=== PATIENT | male | born 1950 | race Caucasian/White ===

== ENCOUNTER 2019-04-19 20:36 | Emergency (ER) | payer MEDICARE, OTHER ==
[~2019-04-19] VITALS: Ht 177 cm; Wt 88.8 kg
[2019-04-19] MEDS ORDERED: ONDANSETRON 4 MG/2 ML (SDV) Z0FRAN IVP STA (20:57)
[2019-04-19] MEDS ORDERED: NS IV 1000 ML 1,000 ML IV STA ×2 (20:57→22:00)
[2019-04-19 21:12] LABS: BASOPHILS # (AUTO) 0.1 10^3/uL (0.0-0.1); BASOPHILS % (AUTO) 0 % (0-10); EOSINOPHILS # (AUTO) 0.1 10^3/uL (0.0-0.3); EOSINOPHILS % (AUTO) 1 % (0-10); HEMATOCRIT 45 % (40-54); HEMOGLOBIN 14.3 G/DL (13.3-17.7); LYMPHOCYTES # (AUTO) 0.6 X 10^3 (1.0-4.0); LYMPHOCYTES % (AUTO) 5 % (12-44); MEAN CORPUSCULAR HEMOGLOBIN 28 PG (25-34); MEAN CORPUSCULAR HGB CONC 32 G/DL (32-36); MEAN CORPUSCULAR VOLUME 89 FL (80-99); MEAN PLATELET VOLUME 10.2 FL (7.4-10.4); MONOCYTES # (AUTO) 0.8 X 10^3 (0.0-1.0); MONOCYTES % (AUTO) 6 % (0-12); NEUTROPHILS # (AUTO) 10.9 X 10^3 (1.8-7.8); NEUTROPHILS % (AUTO) 87 % (42-75); PLATELET COUNT 320 10^3/uL (130-400); RED CELL DISTRIBUTION WIDTH 13.7 % (10.0-14.5); WHITE BLOOD COUNT 12.5 10^3/uL (4.3-11.0)
--- NOTE | 2019-04-19 21:15 | ED GI ---
General Stated Complaint: VOMITTING Source of Information: Patient History of Present Illness Date Seen by Provider: Apr 19, 2019 Time Seen by Provider: 20:44 Initial Comments 69-year-old male presenting with complaints of nausea, vomiting, diarrhea since around 3 AM. He states that he did have some Israeli food prior to this happening. He has only been drinking fluids today. He denies having any effect and then some ice cream. He has not taken any of his insulin until just prior to coming to the emergency department. He reports that he has felt bad all day. His sugars when he finally did check it just before coming to the emergency department was spreading over 600. He took 30 units of NovoLog insulin when his sugar read over 600 and that was part of what prompted him to come to the emergency department. He also has high blood pressure but states that they recently took him off of his lisinopril that he had been on for a long time. He used to have an insulin pump but it was recalled and he is now just doing insulin shots of NovoLog and he occasionally uses Levemir but he states that it occasionally makes his sugar dropped too low so he does not use it all the time. He follows with Christy Olivares from [facility]. Allergies and Home Medications Allergies Coded Allergies: No Known Drug Allergies (Unverified , 04/19/19) Home Medications Ondansetron 4 Mg Tab.rapdis, 4 MG PO Q6H PRN for NAUSEA/VOMITING Prescribed by: PEEWEE VILLAVICENCIO on 04/19/19 [id number] Patient Home Medication List Home Medication List Reviewed: Yes Review of Systems Review of Systems Constitutional: chills; No fever; malaise EENTM: No Blurred Vision, No Throat Pain Respiratory: Denies Cough Cardiovascular: Denies Chest Pain Gastrointestinal: Abdominal Pain (diffuse cramping), Diarrhea, Nausea, Vomiting Genitourinary: Frequency; Denies Pain Musculoskeletal: no symptoms reported Skin: No rash Psychiatric/Neurological: Anxiety Endocrine: Increased Thrist, Increased Urine Hematologic/Lymphatic: No Symptoms Reported Past Bmtjzli-Slwnxq-Bvkmfk Hx Past Med/Social Hx: Reviewed Nursing Past Med/Soc Hx Patient Social History Recent Foreign Travel: No Contact w/Someone Who Travel: No Past Medical History Cardiac: Yes Hypertension Endocrine: Yes Diabetes, Insulin dep Physical Exam Vital Signs Vital Signs - First Documented 04/19/19 20:45 Temp 36.8 Pulse 102 Resp 18 B/P (MAP) 152/64 (93) Pulse Ox 99 O2 Delivery Room Air Capillary Refill : Height/Weight/BMI Height: '" Weight: lbs. oz. kg; BMI Method: General Appearance: WD/WN, no apparent distress HEENT: PERRL/EOMI; No pharyngeal erythema; other (dry mucus membranes) Neck: non-tender, full range of motion, supple Respiratory: chest non-tender, lungs clear, normal breath sounds Cardiovascular: normal peripheral pulses, regular rate, rhythm Gastrointestinal: normal bowel sounds, non tender, soft, no pulsatile mass Rectal: deferred Extremities: normal range of motion, non-tender, no pedal edema, no calf tenderness, normal capillary refill Back: no CVA tenderness Neurologic/Psychiatric: alert, normal mood/affect, oriented x 3 Skin: normal color, warm/dry Progress/Results/Core Measures Results/Orders Lab Results Laboratory Tests Test 04/19/19 21:00 04/19/19 21:10 04/19/19 22:10 04/19/19 22:41 Range/Units White Blood Count 12.5 H 4.3-11.0 10^3/uL Red Blood Count 5.03 4.35-5.85 10^6/uL Hemoglobin 14.3 13.3-17.7 G/DL Hematocrit 45 40-54 % Mean Corpuscular Volume 89 80-99 FL Mean Corpuscular Hemoglobin 28 25-34 PG Mean Corpuscular Hemoglobin Concent 32 32-36 G/DL Red Cell Distribution Width 13.7 10.0-14.5 % Platelet Count 320 130-400 10^3/uL Mean Platelet Volume 10.2 7.4-10.4 FL Neutrophils (%) (Auto) 87 H 42-75 % Lymphocytes (%) (Auto) 5 L 12-44 % Monocytes (%) (Auto) 6 0-12 % Eosinophils (%) (Auto) 1 0-10 % Basophils (%) (Auto) 0 0-10 % Neutrophils # (Auto) 10.9 H 1.8-7.8 X 10^3 Lymphocytes # (Auto) 0.6 L 1.0-4.0 X 10^3 Monocytes # (Auto) 0.8 0.0-1.0 X 10^3 Eosinophils # (Auto) 0.1 0.0-0.3 10^3/uL Basophils # (Auto) 0.1 0.0-0.1 10^3/uL Neutrophils % (Manual) 78 % Lymphocytes % (Manual) 2 % Monocytes % (Manual) 6 % Eosinophils % (Manual) 1 % Basophils % (Manual) 0 % Band Neutrophils 13 % Blood Morphology Comment NORMAL Sodium Level 133 L 135-145 MMOL/L Potassium Level 4.2 3.6-5.0 MMOL/L Chloride Level 94 L 98-107 MMOL/L Carbon Dioxide Level 13 L 21-32 MMOL/L Anion Gap 26 H 5-14 MMOL/L Blood Urea Nitrogen 27 H 7-18 MG/DL Creatinine 1.25 0.60-1.30 MG/DL Estimat Glomerular Filtration Rate 57 BUN/Creatinine Ratio 22 Glucose Level 511 *H 70-105 MG/DL Calcium Level 8.5 8.5-10.1 MG/DL Corrected Calcium 8.5 8.5-10.1 MG/DL Total Bilirubin 0.4 0.1-1.0 MG/DL Aspartate Amino Transf (AST/SGOT) 21 5-34 U/L Alanine Aminotransferase (ALT/SGPT) 16 0-55 U/L Alkaline Phosphatase 98 40-136 U/L Total Protein 7.2 6.4-8.2 GM/DL Albumin 4.0 3.2-4.5 GM/DL Lipase 10 8-78 U/L Serum Alcohol < 10 <10 MG/DL Glucometer 378 H 250 H 70-110 MG/DL Capillary Blood pH 7.31 L 7.37-7.43 My Orders Orders - PEEWEE VILLAVICENCIO MD Comprehensive Metabolic Panel (04/19/19 20:57) Lipase (04/19/19 20:57) Ua Culture If Indicated (04/19/19 20:57) Ed Iv/Invasive Line Start (04/19/19 20:57) Cbc With Automated Diff (04/19/19 20:57) Accucheck Stat ONCE (04/19/19 20:57) Alcohol (04/19/19 20:57) Drug Screen Stat (Urine) (04/19/19 20:57) Ns Iv 1000 Ml (Sodium Chloride 0.9%) (04/19/19 20:57) Ondansetron Injection (Zofran Injectio (04/19/19 20:57) Manual Differential (04/19/19 21:00) Ns Iv 1000 Ml (Sodium Chloride 0.9%) (04/19/19 22:00) Capillary Blood Ph (04/19/19 22:05) Accucheck Stat ONCE (04/19/19 22:41) Rx-Ondansetron Po (Rx-Zofran Po) (04/19/19 22:45) Rx-Ondansetron Po (Rx-Zofran Po) (04/19/19 23:03) Vital Signs/I&O 04/19/19 04/19/19 20:45 22:52 Temp 36.8 Pulse 102 82 Resp 18 16 B/P (MAP) 152/64 (93) 146/54 Pulse Ox 99 99 O2 Delivery Room Air Room Air Progress Progress Note #1: Progress Note Check labs and urine. Give IVF for hydration and Zofran for nausea. 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 Progress Note #2: Time: 21:44 Progress Note Labs show elevated glucose with elevated WBC and left shift. He also has low CO2 and high Anion Gap to indicate possible DKA. His blood pressure and heart rate have improved with treatment in the ED. He still has not been able to provide a urine specimen so will repeat NS bolus. Order ABG to check his pH for possible DKA. Progress Note #3: Time: 22:05 Progress Note Unable to obtain arterial blood gas so will send for a venous pH. Patient is also stating that he understands the importance of treating the acidosis but that he cannot be admitted tonight. 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 He has had no vomiting here in the ED had no diarrhea. He states that he is feeling better after treatment in the ED and that if he gets medication for nausea that he will push fluids and use his insulin to treat his elevated sugars at home. He refuses admission to the hospital and understands the implications that he could worsen and cause organ damage or even if he does not follow with the treatment plan for the ketoacidosis. Will aggressively hydrate him here in the ED and treat him with nausea medicine for home. Give him strict return precautions and have him sign out AGAINST MEDICAL ADVICE. Progress Note #4: Progress Note pH of 7.31 so slightly acidotic but he was tolerating oral fluids and states he feels much better. He has glucose now down to 240 on accucheck after 2 L of NS by IV bolus. He still refuses admit and states he understands the risk of worsening condition and even potential if he does not stay for admission for his DKA, and continues to desire to leave AGAINST MEDICAL ADVICE. Departure Impression Primary Impression: Left against medical advice Additional Impressions: Diabetic ketoacidosis associated with type 1 diabetes mellitus Qualified Codes: E10.10 - Type 1 diabetes mellitus with ketoacidosis without coma Nausea vomiting and diarrhea Dehydration Disposition: AGAINST MEDICAL ADVICE Condition: Against Medical Advice Departure-Patient Inst. Decision time for Depature: 22:43 Referrals: YULI NAGEL APRN (PCP) Primary Care Physician Patient Instructions: Diabetic Ketoacidosis (DC), Leaving Against Medical Advice, Nausea and Vomiting, Adult (DC) Add. Discharge Instructions: Follow up with Raquel Olivares in clinic for your diabetes and elevated sugars. Use the nausea medicine to help keep your stomach settled so that you can stay hydrated. If your symptoms keep worsening then you should return or go to [facility] for repeat evaluation and possible admission to the hospital if your tests continue to show ketoacidosis and dehydration. Scripts Ondansetron (Ondansetron Odt) 4 Mg Tab.rapdis 4 MG PO Q6H PRN for NAUSEA/VOMITING for 3 Days, #12 TAB 0 Refills Prov: PEEWEE VILLAVICENCIO MD 04/19/19 PEEWEE VILLAVICENCIO MD Apr 19, 2019 21:14 POS
[2019-04-19 21:26] LABS: BAND NEUTROPHILS 13 %; BASOPHILS % (MANUAL) 0 %; EOSINOPHILS % (MANUAL) 1 %; LYMPHOCYTES % (MANUAL) 2 %; MONOCYTES % (MANUAL) 6 %; NEUTROPHILS % (MANUAL) 78 %; RBC MORPH NORMAL
[2019-04-19 21:27] LABS: BUN/CREATININE RATIO 22; CARBON DIOXIDE 13 MMOL/L (21-32); CHLORIDE 94 MMOL/L (98-107); CREATININE SERUM 1.25 MG/DL (0.60-1.30); GFR ESTIMATED 57; POTASSIUM 4.2 MMOL/L (3.6-5.0); SODIUM 133 MMOL/L (135-145)
[2019-04-19 21:28] LABS: ALANINE AMINOTRANSFERASE 16 U/L (0-55); ALKALINE PHOSPHATASE 98 U/L (40-136); BILIRUBIN,TOTAL 0.4 MG/DL (0.1-1.0); CALCIUM 8.5 MG/DL (8.5-10.1); GLUCOSE 511 MG/DL (70-105); LIPASE 10 U/L (8-78); TOTAL PROTEIN 7.2 GM/DL (6.4-8.2)
[2019-04-19] MEDS ORDERED: ONDA4TAB11 PO (22:19)
[2019-04-19] MEDS ORDERED: RX-ONDANSETRON 4 MG ODT (ZOFRAN) PPK #4 PO PRN (22:45)
[2019-04-19 22:52] VITALS: BP 146/54
[2019-04-19] MEDS ORDERED: RX-ONDANSETRON 4 MG ODT (ZOFRAN) PPK #4 PO STA (23:03)
--- OUTSIDE RECORDS SUMMARY | 2019-05-16 03:01 | XMS REPORT ---
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 901053896 Problem Gastroesophageal reflux disease without esophagitis K21.9 Active 569006626 Problem Acquired hypothyroidism E03.9 Active 500456031 Problem Long-term use of high-risk medication Z79.899 Active 463460466 Problem Essential hypertension I10 Active 46156059 ALLERGIES No Information ENCOUNTERS Encounter Location Date Diagnosis [facility] [address] [facility] [id number] [address] [place] [phone] Apr, Essential hypertension I10 [facility] [address] [facility] [id number] [address] [place] [phone] Mar, [facility] [address] [facility] [id number] [address] [place] [phone] Mar, Type 1 diabetes mellitus wit hout complication E10.9 [facility] [address] [facility] [id number] [address] [place] [phone] Mar, Gastroesophageal reflux dise ase without esophagitis K21.9 [facility] [address] [facility] [id number] [address] [place] [phone] Feb, [facility] [address] [facility] [id number] [address] [place] [phone] Feb, Type 1 diabetes mellitus wit h hyperglycemia E10.65 ; Essential hypertension I10 ; Long-term use of high-risk medication Z79.899 ; Vasculogenic erectile dysfunction, unspecified vasculogenic erectile dysfunction type N52.9 and Encounter for immunization Z23 [facility] [address] [facility] [id number] [address] [place] [phone] Feb, Type 2 diabetes mellitus wit h hyperglycemia, unspecified whether fdc insulin use E11.65 [facility] [address] [facility] [id number] [address] [place] [phone] Feb, [facility] [address] [id number] [address] [place] [phone] Feb, Type 1 diabetes mellitus wit hout complication E10.9 [facility] [address] [facility] [id number] [address] [place] [phone] Feb, [facility] [address] [facility] [id number] [address] [place] [phone] Dec, [facility] [address] [facility] [id number] [address] [place] [phone] Dec, Type 2 diabetes mellitus wit h hyperglycemia, unspecified whether fdc insulin use E11.65 ; Essential hypertension I10 ; Long-term use of high-risk medication Z79.899 and Vasculogenic erectile dysfunction, unspecified vasculogenic erectile dysfunction type N52.9 [facility] [address] [facility] [id number] [address] [place] [phone] Dec, [facility] [address] [facility] [id number] [address] [place] [phone] Dec, [facility] [address] [facility] [id number] [address] [place] [phone] Oct, Type 1 diabetes mellitus wit hout complication E10.9 [facility] [address] [facility] [id number] [address] [place] [phone] Oct, Gastroesophageal reflux dise ase without esophagitis K21.9 [facility] [address] [facility] [id number] [address] [place] [phone] September, Type 1 diabetes mellitus wit hout complication E10.9 [facility] [address] [facility] [id number] [address] [place] [phone] September, [facility] [address] [id number] [address] [place] [phone] Aug, [facility] [address] [facility] [id number] [address] [place] [phone] Aug, Type 1 diabetes mellitus wit hout complication E10.9 [facility] [address] [id number] [address] [place] [id number] Jul, Type 1 diabetes mellitus wit hout complication E10.9 [facility] [address] [id number] [address] [place] [phone] Jul, [facility] [address] [id number] [address] [place] [phone] Jul, [facility] [address] [id number] [address] [place] [phone] Jun, [facility] [address] [id number] [address] [place] [phone] Jun, [facility] [address] [id number] [address] [place] [phone] Jun, Type 1 diabetes mellitus wit hout complication E10.9 [facility] [address] [id number] [address] [place] [phone] May, Type 1 diabetes mellitus wit hout complication E10.9 [facility] [address] [id number] [address] [place] [phone] May, [facility] [address] [facility] [id number] [address] [place] [phone] May, Type 1 diabetes mellitus wit hout complication E10.9 [facility] [address] [facility] [id number] [address] [place] [phone] May, Type 1 diabetes mellitus wit hout complication E10.9 ; Acquired hypothyroidism E03.9 ; Gastroesophageal reflux disease without esophagitis K21.9 ; Essential hypertension I10 ; Long-term use of high-risk medication Z79.899 ; Screening for colon cancer Z12.11 and Frequency of urination R35.0 [facility] [address] [id number] [address] [place] [phone] Apr, [facility] [address] [id number] [address] [place] [phone] 14 Mar, 2017 [facility] [address] [id number] [address] [place] [phone] Mar, [facility] [address] [id number] [address] [place] [phone] Dec, [facility] [address] [id number] [address] [place] [phone] Dec, [facility] [address] [id number] [address] [place] [phone] Dec, Type 1 diabetes mellitus wit hout complication E10.9 [facility] [address] [id number] [address] [place] [phone] Nov, [facility] [address] [id number] [address] [place] [phone] Nov, [facility] [address] [id number] [address] [place] [phone] Nov, Type 1 diabetes mellitus wit hout complication E10.9 [facility] [address] [id number] [address] [place] [phone] Nov, [facility] [address] [id number] [address] [place] [phone] Nov, Type 1 diabetes mellitus wit hout complication E10.9 [facility] [address] [id number] [address] [place] [phone] Nov, [facility] [address] [id number] [address] [place] [phone] Nov, [facility] [address] [id number] [address] [place] [phone] Nov, [facility] [address] [facility] [id number] [address] [place] [phone] Nov, Type 1 diabetes mellitus wit hout complication E10.9 ; Acquired hypothyroidism E03.9 ; Gastroesophageal reflux disease without esophagitis K21.9 ; Screening cholesterol level Z13.220 ; Essential hypertension I10 and Khadra onychomycosis B37.2 [facility] [address] [id number] [address] [phone] Oct, Type 1 diabetes mellitus wit hout complication E10.9 [facility] [address] [id number] [address] [place] [phone] Oct, [facility] [address] [facility] [id number] [address] [place] [phone] Oct, [facility] [address] [facility] [id number] [address] [place] [phone] September, [facility] [address] [facility] [id number] [address] [place] [phone] Aug, [facility] [address] [facility] [id number] [address] [place] [phone] Jul, [facility] [address] [facility] [id number] [address] [place] [phone] Jul, [facility] [address] [facility] [id number] [address] [place] [phone] Jul, [facility] [address] [facility] [id number] [address] [place] [phone] Jul, [facility] [address] [facility] [id number] [address] [place] [phone] Jul, Type 1 diabetes mellitus wit hout complication E10.9 ; Acquired hypothyroidism E03.9 ; Gastroesophageal reflux disease without esophagitis K21.9 ; Khadra onychomycosis B37.2 and Essential hypertension I10 [facility] [address] [facility] [id number] [address] [place] [phone] Jul, [facility] [address] [place] [id number] Jul, [facility] [address] [facility] [id number] [address] [place] [phone] Jun, [place] [address] [facility] [id number] [address] [place] [phone] Jun, Acquired hypothyroidism E03. 9 ; Gastroesophageal reflux disease without esophagitis K21.9 and Type 1 diabetes mellitus without complication E10.9 [place] [address] [facility] [id number] [address] [phone] Jun, [place] [address] [facility] [id number] [address] [place] [phone] Jun, [place] [address] [facility] [id number] [address] [place] [phone] Jun, Type 1 diabetes mellitus wit hout complication E10.9 ; Acquired hypothyroidism E03.9 ; Gastroesophageal reflux disease without esophagitis K21.9 and Screening cholesterol level Z13.220 [place] [address] [facility] [id number] [address] [phone] 13 Jun, 2016 IMMUNIZATIONS No Known Immunizations SOCIAL HISTORY Never Assessed REASON FOR VISIT Medication refill request PLAN OF CARE VITAL SIGNS MEDICATIONS Medication Instructions Dosage Frequency Start Date End Date Duration S tatus Levothyroxine Sodium 200 MCG Orally daily 1 capsule 24h 30 Active Lisinopril 20 mg Orally Once a day 1 tablet 24h 30 d ays Active RESULTS No Results PROCEDURES No Known procedures INSTRUCTIONS MEDICATIONS ADMINISTERED No Known Medications MEDICAL (GENERAL) HISTORY Type Description Date Medical History Hypothyroidism Medical History type I diabetes Medical History GERD Medical History spinal menningitis Medical History HTN - BP goes down if off the Lisnopril Surgical History appendectomy 2016 Surgical History hernia repair at age 14 Hospitalization History Surgery(s) only Hospitalization History spinal menningitis
--- OUTSIDE RECORDS SUMMARY | 2019-05-16 03:01 | XMS REPORT ---
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 Active 695455384 Problem Gastroesophageal reflux disease without esophagitis K21.9 Active 083697601 Problem Acquired hypothyroidism E03.9 Active 341591611 Problem Long-term use of high-risk medication Z79.899 Active 546983336 Problem Essential hypertension I10 Active [id number] ALLERGIES No Information ENCOUNTERS Encounter Location Date Diagnosis [facility] [address] [facility] [id number] [address] [place] [phone] Mar, [facility] [address] [facility] [id number] [address] [place] [phone] Mar, Type 1 diabetes mellitus wit hout complication E10.9 [facility] [address] [facility] [id number] [address] [place] [phone] Mar, Gastroesophageal reflux dise ase without esophagitis K21.9 [facility] [address] [facility] [id number] [address] [place] [phone] Feb, [facility] [address] [facility] [id number] [address] [place] [phone] Feb, Type 1 diabetes mellitus wit h hyperglycemia E10.65 ; Essential hypertension I10 ; Long-term use of high-risk medication Z79.899 ; Vasculogenic erectile dysfunction, unspecified vasculogenic erectile dysfunction type N52.9 and Encounter for immunization Z23 [facility] [address] [id number] [address] [place] [phone] Feb, Type 2 diabetes mellitus wit h hyperglycemia, unspecified whether long term care administrator insulin use E11.65 [facility] [address] [id number] [address] [place] [phone] Feb, [facility] [address] [facility] [id number] [address] [place] [phone] Feb, Type 1 diabetes mellitus wit hout complication E10.9 [facility] [address] [id number] [address] [place] [phone] Feb, [facility] [address] [id number] [address] [place] [phone] Dec, [facility] [address] [facility] [id number] [address] [place] [phone] Dec, Type 2 diabetes mellitus wit h hyperglycemia, unspecified whether long term care administrator insulin use E11.65 ; Essential hypertension I10 ; Long-term use of high-risk medication Z79.899 and Vasculogenic erectile dysfunction, unspecified vasculogenic erectile dysfunction type N52.9 [facility] [address] [id number] [address] [place] [phone] Dec, [facility] [address] [facility] [id number] [address] [place] [phone] Dec, [facility] [address] [facility] [id number] [address] [place] [id number] Oct, Type 1 diabetes mellitus wit hout complication E10.9 [facility] [address] [id number] [address] [place] [phone] Oct, Gastroesophageal reflux dise ase without esophagitis K21.9 [facility] [address] [id number] [address] [place] [id number] September, Type 1 diabetes mellitus wit hout complication E10.9 [facility] [address] [facility] [id number] [address] [place] [phone] September, [facility] [address] [facility] [id number] [address] [place] [phone] Aug, [facility] [address] [facility] [id number] [address] [place] [phone] Aug, Type 1 diabetes mellitus wit hout complication E10.9 [facility] [address] [facility] [id number] [address] [place] [phone] Jul, Type 1 diabetes mellitus wit hout complication E10.9 [facility] [address] [facility] [id number] [address] [place] [phone] Jul, [facility] [address] [facility] [id number] [address] [place] [phone] Jul, [facility] [address] [facility] [id number] [address] [place] [phone] Jun, [facility] [address] [facility] [id number] [address] [place] [phone] Jun, [facility] [address] [facility] [id number] [address] [place] [phone] Jun, Type 1 diabetes mellitus wit hout complication E10.9 [facility] [address] [facility] [id number] [address] [place] [phone] May, Type 1 diabetes mellitus wit hout complication E10.9 [facility] [address] [facility] [id number] [address] [place] [phone] May, [facility] [address] [facility] [id number] [address] [place] [phone] May, Type 1 diabetes mellitus wit hout complication E10.9 [facility] [address] [facility] [id number] [address] [place] [phone] May, Type 1 diabetes mellitus wit hout complication E10.9 ; Acquired hypothyroidism E03.9 ; Gastroesophageal reflux disease without esophagitis K21.9 ; Essential hypertension I10 ; Long-term use of high-risk medication Z79.899 ; Screening for colon cancer Z12.11 and Frequency of urination R35.0 [facility] [address] [id number] [address] [place] [address], [place] [address] Apr, [facility] [address] [id number] [address] [place] [address], [place] [address] Mar, [facility] [address] [id number] [address] [place] [address], [place] [address] Mar, [facility] [address] [id number] [address] [place] [address], [place] [address] Dec, [facility] [address] [id number] [address] [place] [address], [place] [address] Dec, [facility] [address] [id number] [address] [place] [address], [place] [address] Dec, Type 1 diabetes mellitus wit hout complication E10.9 [facility] [address] [id number] [address] [place] [address], [place] [address] Nov, [facility] [address] [id number] [address] [place] [address], [place] [address] Nov, [facility] [address] [id number] [address] [place] [address], [place] [address] Nov, Type 1 diabetes mellitus wit hout complication E10.9 [facility] [address] [id number] [address] [place] [address], [place] [address] Nov, [facility] [address] [id number] [address] [place] [address], [place] [address] Nov, Type 1 diabetes mellitus wit hout complication E10.9 [facility] [address] [id number] [address] [place] [address], [place] [address] Nov, [facility] [address] [id number] [address] [place] [address], [place] [address] Nov, [facility] [address] [id number] [address] [place] [phone] Nov, [facility] [address] [id number] [address] [place] [phone] Nov, Type 1 diabetes mellitus wit hout complication E10.9 ; Acquired hypothyroidism E03.9 ; Gastroesophageal reflux disease without esophagitis K21.9 ; Screening cholesterol level Z13.220 ; Essential hypertension I10 and Khadra onychomycosis B37.2 [facility] [address] [id number] [address] [place] [id number] Oct, Type 1 diabetes mellitus wit hout complication E10.9 [facility] [address] [id number] [address] [place] [phone] Oct, [facility] [address] [id number] [address] [place] [phone] Oct, [facility] [address] [id number] [address] [place] [phone] September, [facility] [address] [id number] [address] [place] [id number] Aug, [facility] [address] [id number] [address] [place] [phone] Jul, [facility] [address] [id number] [address] [place] [phone] Jul, [facility] [address] [facility] [id number] [address] [place] [phone] Jul, [facility] [address] [id number] [address] [place] [phone] Jul, [facility] [address] [facility] [id number] [address] [place] [phone] Jul, Type 1 diabetes mellitus wit hout complication E10.9 ; Acquired hypothyroidism E03.9 ; Gastroesophageal reflux disease without esophagitis K21.9 ; Khadra onychomycosis B37.2 and Essential hypertension I10 [facility] [address] [facility] [id number] [address] [place] [phone] 14 Jul, 2016 [facility] [address] [place] [id number] Jul, [facility] [address] [facility] [id number] [address] [place] [phone] Jun, [facility] [address] [place] [id number] [address] [place] [phone] Jun, Acquired hypothyroidism E03. 9 ; Gastroesophageal reflux disease without esophagitis K21.9 and Type 1 diabetes mellitus without complication E10.9 [place] [id number] [place] [phone] Jun, [place] [id number] [place] [phone] Jun, [place] [address] [place] [id number] [address] [place] [address] Jun, Type 1 diabetes mellitus wit hout complication E10.9 ; Acquired hypothyroidism E03.9 ; Gastroesophageal reflux disease without esophagitis K21.9 and Screening cholesterol level Z13.220 [place] [address] [facility] [id number] [address] [place] [phone] Jun, IMMUNIZATIONS No Known Immunizations SOCIAL HISTORY Never Assessed REASON FOR VISIT Eye Exam PLAN OF CARE VITAL SIGNS MEDICATIONS Unknown Medications RESULTS No Results PROCEDURES No Known procedures [...]
--- OUTSIDE RECORDS SUMMARY | 2019-05-16 03:02 | XMS REPORT ---
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 Active 351619301 Problem Type 2 diabetes mellitus wit h hyperglycemia, unspecified whether adjunct faculty for medical terminology insulin use E11.65 Active 30681987333 9109 Problem Acquired hypothyroidism E03.9 Active 962703254 Problem Gastroesophageal reflux disease without esophagitis K21.9 Active 755275195 Problem Long-term use of high-risk medication Z79.899 Active 513169591 Problem Essential hypertension I10 Active 47332110 ALLERGIES No Information ENCOUNTERS Encounter Location Date Diagnosis [facility] [address] [facility] [id number] [address] [place] [phone] Mar, [facility] [address] [facility] [id number] [address] [place] [phone] 24 Feb, 2018 [facility] [address] [facility] [id number] [address] [place] [phone] Feb, Type 2 diabetes mellitus wit h hyperglycemia, unspecified whether adjunct faculty for medical terminology insulin use E11.65 [facility] [address] [id number] [address] [place] [phone] Feb, [facility] [address] [facility] [id number] [address] [place] [phone] Feb, Type 1 diabetes mellitus wit hout complication E10.9 [facility] [address] [facility] [id number] [address] [place] [phone] Feb, [facility] [address] [facility] [id number] [address] [place] [phone] Dec, [facility] [address] [facility] [id number] [address] [place] [phone] Dec, Type 2 diabetes mellitus wit h hyperglycemia, unspecified whether adjunct faculty for medical terminology insulin use E11.65 ; Essential hypertension I10 ; Long-term use of high-risk medication Z79.899 and Vasculogenic erectile dysfunction, unspecified vasculogenic erectile dysfunction type N52.9 [facility] [address] [facility] [id number] [address] [place] [phone] Dec, [facility] [address] [facility] [id number] [address] [place] [phone] Dec, [facility] [address] [facility] [id number] [address] [place] [phone] Oct, Type 1 diabetes mellitus wit hout complication E10.9 [facility] [address] [facility] [id number] [address] [place] [phone] Oct, Gastroesophageal reflux dise ase without esophagitis K21.9 [facility] [address] [facility] [id number] [address] [place] [phone] September, Type 1 diabetes mellitus wit hout complication E10.9 [facility] [address] [facility] [id number] [address] [place] [phone] September, [facility] [address] [facility] [id number] [address] [place] [phone] Aug, [facility] [address] [facility] [id number] [address] [place] [phone] Aug, Type 1 diabetes mellitus wit hout complication E10.9 [facility] [address] [facility] [id number] [address] [place] [phone] Jul, Type 1 diabetes mellitus wit hout complication E10.9 [facility] [address] [facility] [id number] [address] [place] [phone] Jul, [facility] [address] [facility] [id number] [address] [place] [phone] Jul, [facility] [address] [facility] [id number] [address] [place] [phone] Jun, [facility] [address] [facility] [id number] [address] [place] [phone] Jun, [facility] [address] [facility] [id number] [address] [place] [phone] Jun, Type 1 diabetes mellitus wit hout complication E10.9 [facility] [address] [facility] [id number] [address] [place] [phone] May, Type 1 diabetes mellitus wit hout complication E10.9 [facility] [address] [facility] [id number] [address] [place] [phone] May, [facility] [address] [facility] [id number] [address] [place] [address] May, Type 1 diabetes mellitus wit hout complication E10.9 [facility] [address] [facility] [id number] [address] [place] [phone] May, Type 1 diabetes mellitus wit hout complication E10.9 ; Acquired hypothyroidism E03.9 ; Gastroesophageal reflux disease without esophagitis K21.9 ; Essential hypertension I10 ; Long-term use of high-risk medication Z79.899 ; Screening for colon cancer Z12.11 and Frequency of urination R35.0 [facility] [address] [facility] [id number] [address] [place] [phone] Apr, [facility] [address] [facility] [id number] [address] [place] [address] Mar, [facility] [address] [facility] [id number] [address] [place] [phone] Mar, [facility] [address] [facility] [id number] [address] [place] [phone] Dec, [facility] [address] [facility] [id number] [address] [place] [phone] Dec, [facility] [address] [id number] [address] [place] [address] Dec, Type 1 diabetes mellitus wit hout complication E10.9 [facility] [address] [id number] [address] [place] [phone] Nov, [facility] [address] [id number] [address] [place] [address] Nov, [facility] [address] [id number] [address] [place] [phone] Nov, Type 1 diabetes mellitus wit hout complication E10.9 [facility] [address] [id number] [address] [place] [address] Nov, [facility] [address] [id number] [address] [place] [phone] Nov, Type 1 diabetes mellitus wit hout complication E10.9 [facility] [address] [id number] [address] [place] [phone] Nov, [facility] [address] [id number] [address] [place] [phone] Nov, [facility] [address] [id number] [address] [place] [address] Nov, [facility] [address] [id number] [address] [place] [address] Nov, Type 1 diabetes mellitus wit hout complication E10.9 ; Acquired hypothyroidism E03.9 ; Gastroesophageal reflux disease without esophagitis K21.9 ; Screening cholesterol level Z13.220 ; Essential hypertension I10 and Khadra onychomycosis B37.2 [facility] [address] [id number] [address] [place] [phone] Oct, Type 1 diabetes mellitus wit hout complication E10.9 [facility] [address] [id number] [address] [place] [phone] Oct, [facility] [address] [id number] [address] [place] [phone] Oct, [facility] [address] [facility] [id number] [address] [place] [phone] September, [facility] [address] [id number] [address] [place] [phone] Aug, [facility] [address] [facility] [id number] [address] [place] [phone] Jul, [facility] [address] [id number] [address] [place] [phone] Jul, [facility] [address] [id number] [address] [place] [phone] Jul, [facility] [address] [facility] [id number] [address] [place] [phone] Jul, [facility] [address] [facility] [id number] [address] [place] [phone] Jul, Type 1 diabetes mellitus wit hout complication E10.9 ; Acquired hypothyroidism E03.9 ; Gastroesophageal reflux disease without esophagitis K21.9 ; Khadra onychomycosis B37.2 and Essential hypertension I10 [facility] [address] [facility] [id number] [address] [place] [phone] Jul, [facility] [address] [place] [id number] Jul, [facility] [address] [facility] [id number] [address] [place] [phone] Jun, [facility] [address] [facility] [id number] [address] [place] [phone] Jun, Acquired hypothyroidism E03. 9 ; Gastroesophageal reflux disease without esophagitis K21.9 and Type 1 diabetes mellitus without complication E10.9 [facility] [address] [facility] [id number] [address] [place] [phone] Jun, [facility] [address] [facility] [id number] [address] [place] [phone] Jun, [facility] [address] [facility] [id number] [address] [place] [phone] 15 Jun, 2016 Type 1 diabetes mellitus wit hout complication E10.9 ; Acquired hypothyroidism E03.9 ; Gastroesophageal reflux disease without esophagitis K21.9 and Screening cholesterol level Z13.220 [facility] [address] [facility] [id number] [address] [place] [phone] 13 Jun, 2016 IMMUNIZATIONS No Known Immunizations SOCIAL HISTORY Never Assessed REASON FOR VISIT Requests return call PLAN OF CARE VITAL SIGNS MEDICATIONS Unknown [...]
--- OUTSIDE RECORDS SUMMARY | 2019-05-16 03:02 | XMS REPORT ---
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 996583863 Problem Gastroesophageal reflux disease without esophagitis K21.9 Active 122700676 Problem Acquired hypothyroidism E03.9 Active 121650172 Problem Long-term use of high-risk medication Z79.899 Active 030001582 Problem Essential hypertension I10 Active 63599118 ALLERGIES Substance Reaction Event Type Date Status Codeine Phosphate Unknown Drug Allergy Feb, Active ENCOUNTERS Encounter Location Date Diagnosis [place] [id number] [facility] [id number] [address] [place] [phone] Mar, [place] [address] [place] [id number] [address] [place] [phone] Feb, [place] [address] [place] [id number] [address] [place] [phone] Feb, Type 1 diabetes mellitus wit h hyperglycemia E10.65 ; Essential hypertension I10 ; Long-term use of high-risk medication Z79.899 ; Vasculogenic erectile dysfunction, unspecified vasculogenic erectile dysfunction type N52.9 and Encounter for immunization Z23 [facility] [address] [facility] [id number] [address] [place] [phone] Feb, Type 2 diabetes mellitus wit h hyperglycemia, unspecified whether snf insulin use E11.65 [place] [id number] [place] [id number] [address] [place] [phone] Feb, [facility] [address] [facility] [id number] [address] [place] [phone] Feb, Type 1 diabetes mellitus wit hout complication E10.9 [facility] [address] [facility] [id number] [address] [place] [phone] Feb, [facility] [address] [facility] [id number] [address] [place] [phone] Dec, [facility] [address] [facility] [id number] [address] [place] [phone] Dec, Type 2 diabetes mellitus wit h hyperglycemia, unspecified whether snf insulin use E11.65 ; Essential hypertension I10 ; Long-term use of high-risk medication Z79.899 and Vasculogenic erectile dysfunction, unspecified vasculogenic erectile dysfunction type N52.9 [facility] [address] [facility] [id number] [address] [place] [phone] Dec, [facility] [address] [facility] [id number] [address] [place] [phone] Dec, [facility] [address] [facility] [id number] [address] [place] [phone] Oct, Type 1 diabetes mellitus wit hout complication E10.9 [facility] [address] [facility] [id number] [address] [place] [phone] Oct, Gastroesophageal reflux dise ase without esophagitis K21.9 [facility] [address] [facility] [id number] [address] [place] [phone] September, Type 1 diabetes mellitus wit hout complication E10.9 [facility] [address] [facility] [id number] [address] [place] [phone] September, [facility] [address] [facility] [id number] [address] [place] [phone] Aug, [facility] [address] [facility] [id number] [address] [place] [phone] Aug, Type 1 diabetes mellitus wit hout complication E10.9 [facility] [address] [facility] [id number] [address] [place] [phone] Jul, Type 1 diabetes mellitus wit hout complication E10.9 [facility] [address] [facility] [id number] [address] [place] [phone] Jul, [facility] [address] [facility] [id number] [address] [place] [phone] Jul, [facility] [address] [facility] [id number] [address] [place] [phone] Jun, [facility] [address] [facility] [id number] [address] [place] [phone] Jun, [facility] [address] [place] [id number] [address] [place] [phone] Jun, Type 1 diabetes mellitus wit hout complication E10.9 [facility] [address] [place] [id number] [address] [place] [phone] May, Type 1 diabetes mellitus wit hout complication E10.9 [facility] [address] [place] [id number] [address] [place] [phone] May, [facility] [address] [place] [id number] [address] [place] [phone] May, Type 1 diabetes mellitus wit hout complication E10.9 [facility] [id number] [place] [phone] May, Type 1 diabetes mellitus wit hout complication E10.9 ; Acquired hypothyroidism E03.9 ; Gastroesophageal reflux disease without esophagitis K21.9 ; Essential hypertension I10 ; Long-term use of high-risk medication Z79.899 ; Screening for colon cancer Z12.11 and Frequency of urination R35.0 [facility] [address] [facility] [id number] [address] [place] [phone] Apr, [facility] [address] [place] [id number] [address] [place] [phone] Mar, [facility] [id number] [place] [phone] Mar, [facility] [address] [id number] [address] [place] [phone] Dec, [facility] [address] [id number] [address] [place] [phone] Dec, [facility] [address] [id number] [address] [place] [phone] Dec, Type 1 diabetes mellitus wit hout complication E10.9 [facility] [address] [id number] [address] [place] [phone] Nov, [facility] [address] [id number] [address] [place] [phone] Nov, [facility] [address] [id number] [address] [place] [phone] Nov, Type 1 diabetes mellitus wit hout complication E10.9 [facility] [address] [id number] [address] [place] [phone] Nov, [facility] [address] [id number] [address] [place] [phone] Nov, Type 1 diabetes mellitus wit hout complication E10.9 [facility] [address] [id number] [address] [place] [phone] Nov, [facility] [address] [id number] [address] [place] [phone] Nov, [facility] [address] [id number] [address] [place] [phone] Nov, [facility] [address] [facility] [id number] [address] [place] [phone] Nov, Type 1 diabetes mellitus wit hout complication E10.9 ; Acquired hypothyroidism E03.9 ; Gastroesophageal reflux disease without esophagitis K21.9 ; Screening cholesterol level Z13.220 ; Essential hypertension I10 and Khadra onychomycosis B37.2 [facility] [address] [id number] [address] [place] [phone] 28 Oct, 2016 Type 1 diabetes mellitus wit hout complication E10.9 [facility] [address] [id number] [address] [place] [phone] Oct, [facility] [address] [id number] [address] [place] [phone] 05 Oct, 2016 [facility] [address] [id number] [address] [place] [phone] September, [facility] [address] [id number] [address] [place] [phone] Aug, [facility] [address] [id number] [address] [place] [phone] Jul, [facility] [address] [facility] [id number] [address] [place] [phone] Jul, [facility] [address] [id number] [address] [place] [phone] Jul, [facility] [address] [id number] [address] [place] [phone] Jul, [facility] [address] [facility] [id number] [address] [place] [phone] Jul, Type 1 diabetes mellitus wit hout complication E10.9 ; Acquired hypothyroidism E03.9 ; Gastroesophageal reflux disease without esophagitis K21.9 ; Khadra onychomycosis B37.2 and Essential hypertension I10 [facility] [address] [id number] [address] [place] [phone] 14 Jul, [facility] [address] [id number] Jul, [facility] [address] [id number] [address] [place] [phone] Jun, [facility] [address] [facility] [id number] [address] [place] [phone] Jun, Acquired hypothyroidism E03. 9 ; Gastroesophageal reflux disease without esophagitis K21.9 and Type 1 diabetes mellitus without complication E10.9 [facility] [address] [facility] [id number] [address] [place] [phone] Jun, [facility] [address] [facility] [id number] [address] [place] [phone] Jun, [facility] [address] [facility] [id number] [address] [place] [phone] Jun, Type 1 diabetes mellitus wit hout complication E10.9 ; Acquired hypothyroidism E03.9 ; Gastroesophageal reflux disease without esophagitis K21.9 and Screening cholesterol level Z13.220 [place] [address] [facility] [id number] [address] [place] [phone] Jun, IMMUNIZATIONS Vaccine Route Administration Date Status FLULAVAL QUAD 0.5ML (6 MO & UP) 2018 IM Intramuscular Mar 08 Administered SOCIAL HISTORY Never Assessed REASON FOR VISIT Diabetes fu -- wu fowler PLAN OF CARE Activity Details Follow Up 3 Months with Ashia dominguez: Pending Test TSH w/ FREE T4 Pending Test CMP Pending Test CBC Pending Test VITAMIN B12 VITAL SIGNS Height 70 in 2018-03-08 Weight 204.0 lbs 2018-03-08 Temperature 98.0 degrees Fahrenheit 2018-03-08 Heart Rate 78 bpm 2018-03-08 Respiratory Rate 18 2018-03-08 BMI 29.27 kg/m2 2018-03-08 Blood pressure systolic 140 mmHg 2018-03-08 Blood pressure diastolic 80 mmHg 2018-03-08 MEDICATIONS Medication Instructions Dosage Frequency Start Date End Date Duration S tatus ReliOn Prime Test - In Vitro 3 times a day as directed 8h 11 Nov, 2 017 Active Dex4 Glucose Go-Pouch 15 GM/33GM Orally as needed for hypoglycem ia as directed May, Active Protonix 40 mg Orally Once a day 1 capsule 24h 30 Active Viagra 100 mg Orally Once a day 1 tablet as needed 24h Feb, Mar, 30 day(s) Active ReliOn Blood Glucose Test - In Vitro 3 times a day as directed 8h 33 Active Tresiba FlexTouch 200 UNIT/ML Subcutaneous Once a day 10 units at bedtime 24h Feb, Active Levothyroxine Sodium 200 MCG TAKE ONE (1 ) TABLET BY MOUTH ONCE DAILY IN THE MORNING ON AN EMPTY STOMACH 30 Active Insulin Syringe-Needle U-100 31G X 1/4 subcutaneously 4 times a day as directed 6h Oct, Active NovoLog 100 UNIT/ML Subcutaneous before breakfast and lunch 8 units 60 days Active Lisinopril 20 MG Orally Once a day 1 tablet 24h 30 d ays Active Tresiba FlexTouch 200 UNIT/ML Subcutaneous at bedtime Inject 14 uni ts May, Not-Taking Insulin Syringe 31G X 5/16 subcutaneously 4 times a day DX: E11. 65 as directed Dec, Active RESULTS Name Result Date Reference Range A1C (IN HOUSE) A1C IN HOUSE 9.7 4.3 - 5.6 % Previous A1c 11.4 Lot [id number] Exp date 07/2019 PROCEDURES Procedure Date Ordered Result Body Site GLYCATED HEMOGLOBIN TEST Mar 08, 2018 FLULAVAL QUAD 0.5ML (6 MO & UP) 2017Mar 08, 2018 [facility] VISIT ESTABLISHED PATIENT Mar 08, 2018 SINGLE IMMUNIZATION ADMIN Mar 08, 2018 ADMN FLU VAC NO FEE SCHED SAME DAY Mar 08, 2018 LAB NOT BILLED BY [facility] Mar 08, 2018 VENIPUNCT, ROUTINE* Mar 08, 2018 INSTRUCTIONS MEDICATIONS ADMINISTERED No Known Medications MEDICAL [...]
--- OUTSIDE RECORDS SUMMARY | 2019-05-16 03:02 | XMS REPORT ---
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 Active 845517742 Problem Type 2 diabetes mellitus wit h hyperglycemia, unspecified whether nuclear equipment sales engineer insulin use E11.65 Active 71012367112 9109 Problem Acquired hypothyroidism E03.9 Active 489311246 Problem Gastroesophageal reflux disease without esophagitis K21.9 Active 663150494 Problem Long-term use of high-risk medication Z79.899 Active 211129082 Problem Essential hypertension I10 Active 99810033 ALLERGIES No Information ENCOUNTERS Encounter Location Date Diagnosis [place] [id number] [facility] [id number] [address] [place] [phone] Jan, [facility] [address] [facility] [id number] [address] [place] [phone] Dec, [facility] [address] [facility] [id number] [address] [place] [phone] Dec, Type 2 diabetes mellitus wit h hyperglycemia, unspecified whether nuclear equipment sales engineer insulin use E11.65 ; Essential hypertension I10 ; Long-term use of high-risk medication Z79.899 and Vasculogenic erectile dysfunction, unspecified vasculogenic erectile dysfunction type N52.9 [facility] [address] [facility] [id number] [address] [place] [phone] Dec, [facility] [address] [facility] [id number] [address] [place] [phone] Dec, [facility] [address] [facility] [id number] [address] [place] [phone] Oct, Type 1 diabetes mellitus wit hout complication E10.9 [facility] [address] [id number] [address] [place] [address] Oct, Gastroesophageal reflux dise ase without esophagitis K21.9 [facility] [address] [id number] [address] [place] [phone] September, Type 1 diabetes mellitus wit hout complication E10.9 [facility] [address] [id number] [address] [place] [phone] September, [facility] [address] [id number] [address] [place] [phone] Aug, [facility] [address] [id number] [address] [place] [phone] Aug, Type 1 diabetes mellitus wit hout complication E10.9 [facility] [address] [id number] [address] [place] [phone] Jul, Type 1 diabetes mellitus wit hout complication E10.9 [facility] [address] [id number] [address] [place] [phone] Jul, [facility] [address] [id number] [address] [place] [phone] Jul, [facility] [address] [id number] [address] [place] [phone] Jun, [facility] [address] [id number] [address] [place] [phone] Jun, [facility] [address] [id number] [address] [place] [address] Jun, Type 1 diabetes mellitus wit hout complication E10.9 [facility] [address] [id number] [address] [place] [phone] May, Type 1 diabetes mellitus wit hout complication E10.9 [facility] [address] [id number] [address] [place] [phone] May, [facility] [address] [id number] [address] [place] [phone] May, Type 1 diabetes mellitus wit hout complication E10.9 [facility] [address] [id number] [address] [place] [phone] May, Type 1 diabetes mellitus wit hout complication E10.9 ; Acquired hypothyroidism E03.9 ; Gastroesophageal reflux disease without esophagitis K21.9 ; Essential hypertension I10 ; Long-term use of high-risk medication Z79.899 ; Screening for colon cancer Z12.11 and Frequency of urination R35.0 [facility] [address] [id number] [address] [place] [phone] Apr, [facility] [address] [id number] [address] [place] [phone] Mar, [facility] [address] [facility] [id number] [address] [place] [phone] Mar, [facility] [address] [id number] [address] [place] [phone] Dec, [facility] [address] [id number] [address] [place] [phone] Dec, [facility] [address] [facility] [id number] [address] [place] [phone] Dec, Type 1 diabetes mellitus wit hout complication E10.9 [facility] [address] [id number] [address] [place] [phone] Nov, [facility] [address] [id number] [address] [place] [phone] Nov, [facility] [address] [id number] [address] [place] [phone] Nov, Type 1 diabetes mellitus wit hout complication E10.9 [facility] [address] [facility] [id number] [address] [place] [address] Nov, [facility] [address] [id number] [address] [place] [phone] Nov, Type 1 diabetes mellitus wit hout complication E10.9 [facility] [address] [id number] [address] [place] [phone] Nov, [facility] [address] [facility] [id number] [address] [place] [phone] Nov, [facility] [address] [id number] [address] [place] [phone] Nov, [facility] [address] [facility] [id number] [address] [place] [address] Nov, Type 1 diabetes mellitus wit hout complication E10.9 ; Acquired hypothyroidism E03.9 ; Gastroesophageal reflux disease without esophagitis K21.9 ; Screening cholesterol level Z13.220 ; Essential hypertension I10 and Khadra onychomycosis B37.2 [facility] [address] [id number] [address] [place] [phone] Oct, Type 1 diabetes mellitus wit hout complication E10.9 [facility] [address] [id number] [address] [place] [phone] Oct, [facility] [address] [id number] [address] [place] [phone] Oct, [facility] [address] [id number] [address] [place] [phone] September, [facility] [address] [id number] [address] [place] [phone] Aug, [facility] [address] [id number] [address] [place] [phone] Jul, [facility] [address] [id number] [address] [place] [phone] Jul, [facility] [address] [id number] [address] [place] [phone] Jul, [facility] [address] [id number] [address] [place] [phone] 15 Jul, 2016 [place] [address] [facility] [id number] [address] [place] [address] Jul, Type 1 diabetes mellitus wit hout complication E10.9 ; Acquired hypothyroidism E03.9 ; Gastroesophageal reflux disease without esophagitis K21.9 ; Khadra onychomycosis B37.2 and Essential hypertension I10 [place] [address] [facility] [id number] [address] [place] [phone] 14 Jul, 2016 [facility] [address] [place] [id number] Jul, [place] [address] [address] [facility] [id number] [address] [place] [phone] Jun, [place] [address] [address] [facility] [id number] [address] [place] [phone] Jun, Acquired hypothyroidism E03. 9 ; Gastroesophageal reflux disease without esophagitis K21.9 and Type 1 diabetes mellitus without complication E10.9 [place] [address] [facility] [id number] [address] [place] [phone] Jun, [place] [address] [address] [facility] [id number] [address] [place] [phone] Jun, [place] [address] [facility] [id number] [address] [place] [id number] Jun, Type 1 diabetes mellitus wit hout complication E10.9 ; Acquired hypothyroidism E03.9 ; Gastroesophageal reflux disease without esophagitis K21.9 and Screening cholesterol level Z13.220 [place] [address] [facility] [id number] [address] [place] [phone] Jun, IMMUNIZATIONS No Known Immunizations SOCIAL HISTORY Never Assessed REASON FOR VISIT Med Refills PLAN OF CARE VITAL SIGNS MEDICATIONS Medication Instructions Dosage Frequency Start Date End Date Duration S amarilys Lisinopril 10 mg Orally Once a day 1 tablet 24h 30 Active Protonix 40 mg Orally Once a day 1 capsule 24h 30 Active Levothyroxine Sodium 200 MCG TAKE ONE (1 ) TABLET BY MOUTH ONCE DAILY IN THE MORNING ON AN EMPTY STOMACH 30 Active RESULTS No Results PROCEDURES No Known [...]
--- OUTSIDE RECORDS SUMMARY | 2019-05-16 03:02 | XMS REPORT ---
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 Active 947356071 Problem Type 2 diabetes mellitus wit h hyperglycemia, unspecified whether machine long goods helper insulin use E11.65 Active 42147103032 9109 Problem Acquired hypothyroidism E03.9 Active 902508261 Problem Gastroesophageal reflux disease without esophagitis K21.9 Active 546331100 Problem Long-term use of high-risk medication Z79.899 Active 894658815 Problem Essential hypertension I10 Active 85419347 ALLERGIES Substance Reaction Event Type Date Status Codeine Phosphate Unknown Drug Allergy Dec, Active ENCOUNTERS Encounter Location Date Diagnosis [facility] [address] [facility] [id number] [address] [place] [phone] Feb, [facility] [address] [facility] [id number] [address] [place] [phone] Dec, [facility] [address] [facility] [id number] [address] [place] [phone] Dec, Type 2 diabetes mellitus wit h hyperglycemia, unspecified whether machine long goods helper insulin use E11.65 ; Essential hypertension I10 ; Long-term use of high-risk medication Z79.899 and Vasculogenic erectile dysfunction, unspecified vasculogenic erectile dysfunction type N52.9 [facility] [address] [facility] [id number] [address] [place] [id number] Dec, [facility] [address] [facility] [id number] [address] [place] [phone] Dec, [facility] [address] [id number] [address] [place] [address] Oct, Type 1 diabetes mellitus wit hout complication E10.9 [facility] [address] [id number] [address] [place] [phone] Oct, Gastroesophageal reflux dise ase without esophagitis K21.9 [facility] [address] [id number] [address] [place] [phone] September, Type 1 diabetes mellitus wit hout complication E10.9 [facility] [address] [id number] [address] [place] [address] September, [facility] [address] [id number] [address] [place] [phone] Aug, [facility] [address] [id number] [address] [place] [phone] Aug, Type 1 diabetes mellitus wit hout complication E10.9 [facility] [address] [id number] [address] [place] [phone] Jul, Type 1 diabetes mellitus wit hout complication E10.9 [facility] [address] [id number] [address] [place] [phone] Jul, [facility] [address] [id number] [address] [place] [phone] Jul, [facility] [address] [id number] [address] [place] [phone] Jun, [facility] [address] [id number] [address] [place] [phone] Jun, [facility] [address] [id number] [address] [place] [address] Jun, Type 1 diabetes mellitus wit hout complication E10.9 [facility] [address] [id number] [address] [place] [phone] May, Type 1 diabetes mellitus wit hout complication E10.9 [facility] [address] [id number] [address] [place] [phone] May, [facility] [address] [id number] [address] [place] [phone] May, Type 1 diabetes mellitus wit hout complication E10.9 [facility] [address] [facility] [id number] [address] [place] [address] May, Type 1 diabetes mellitus wit hout complication E10.9 ; Acquired hypothyroidism E03.9 ; Gastroesophageal reflux disease without esophagitis K21.9 ; Essential hypertension I10 ; Long-term use of high-risk medication Z79.899 ; Screening for colon cancer Z12.11 and Frequency of urination R35.0 [facility] [address] [id number] [address] [place] [phone] Apr, [facility] [address] [facility] [id number] [address] [place] [phone] Mar, [facility] [address] [facility] [id number] [address] [place] [phone] Mar, [facility] [address] [facility] [id number] [address] [place] [id number] Dec, [facility] [address] [facility] [id number] [address] [place] [id number] Dec, [facility] [address] [facility] [id number] [address] [place] [address] Dec, Type 1 diabetes mellitus wit hout complication E10.9 [facility] [address] [id number] [address] [place] [phone] Nov, [facility] [address] [id number] [address] [place] [phone] Nov, [facility] [address] [facility] [id number] [address] [place] [phone] Nov, Type 1 diabetes mellitus wit hout complication E10.9 [facility] [address] [facility] [id number] [address] [place] [phone] Nov, [facility] [address] [facility] [id number] [address] [place] [address] Nov, Type 1 diabetes mellitus wit hout complication E10.9 [facility] [address] [facility] [id number] [address] [place] [phone] Nov, [facility] [address] [facility] [id number] [address] [place] [phone] Nov, [facility] [address] [facility] [id number] [address] [place] [phone] Nov, [facility] [address] [facility] [id number] [address] [place] [address] Nov, Type 1 diabetes mellitus wit hout complication E10.9 ; Acquired hypothyroidism E03.9 ; Gastroesophageal reflux disease without esophagitis K21.9 ; Screening cholesterol level Z13.220 ; Essential hypertension I10 and Khadra onychomycosis B37.2 [facility] [address] [facility] [id number] [address] [place] [id number] Oct, Type 1 diabetes mellitus wit hout complication E10.9 [facility] [address] [facility] [id number] [address] [place] [phone] Oct, [facility] [address] [facility] [id number] [address] [place] [phone] Oct, [facility] [address] [facility] [id number] [address] [place] [phone] September, [facility] [address] [facility] [id number] [address] [place] [phone] Aug, [facility] [address] [facility] [id number] [address] [place] [phone] Jul, [facility] [address] [facility] [id number] [address] [place] [phone] Jul, [facility] [address] [facility] [id number] [address] [place] [phone] Jul, [facility] [address] [place] [id number] [address] [place] [phone] 15 Jul, 2016 [facility] [address] [facility] [id number] [address] [place] [id number] 15 Jul, 2016 Type 1 diabetes mellitus wit hout complication E10.9 ; Acquired hypothyroidism E03.9 ; Gastroesophageal reflux disease without esophagitis K21.9 ; Khadra onychomycosis B37.2 and Essential hypertension I10 [facility] [address] [place] [id number] [address] [place] [phone] 14 Jul, 2016 [facility] [address] [place] [id number] Jul, [facility] [address] [facility] [id number] [address] [place] [phone] Jun, [place] [id number] [place] [address] Jun, Acquired hypothyroidism E03. 9 ; Gastroesophageal reflux disease without esophagitis K21.9 and Type 1 diabetes mellitus without complication E10.9 [facility] [address] [facility] [id number] [address] [place] [phone] Jun, [facility] [address] [place] [id number] [address] [place] [phone] Jun, [facility] [id number] [place] [address] Jun, Type 1 diabetes mellitus wit hout complication E10.9 ; Acquired hypothyroidism E03.9 ; Gastroesophageal reflux disease without esophagitis K21.9 and Screening cholesterol level Z13.220 [facility] [address] [place] [id number] [address] [place] [phone] Jun, IMMUNIZATIONS No Known Immunizations SOCIAL HISTORY Never Assessed REASON FOR VISIT diabetes soumya ceja ma, patient states he will be getting insulin pump at the end this month on the PLAN OF CARE Activity Details Follow Up 2 Months with [facility] Reason: VITAL SIGNS Height 70 in 2017-12-21 Weight 202 lbs 2017-12-21 Temperature 97.8 degrees Fahrenheit 2017-12-21 Heart Rate 82 bpm 2017-12-21 Respiratory Rate 20 2017-12-21 BMI 28.98 kg/m2 2017-12-21 Blood pressure systolic 146 mmHg 2017-12-21 Blood pressure diastolic 92 mmHg 2017-12-21 MEDICATIONS Medication Instructions Dosage Frequency Start Date End Date Duration S amarilys ReliOn Prime Test - In Vitro 3 times a day as directed 8h Nov, 2 017 Active Dex4 Glucose Go-Pouch 15 GM/33GM Orally as needed for hypoglycem ia as directed May, Active Insulin Syringe-Needle U-100 31G X 1/4 subcutaneously 4 times a day as directed 6h Oct, Active Tresiba FlexTouch 200 UNIT/ML Subcutaneous at bedtime Inject 14 uni ts May, Active ReliOn Blood Glucose Test - In Vitro 3 times a day as directed 8h Oct, Active Lisinopril 20 MG Orally Once a day 1 tablet 24h 30 d ays Active NovoLog 100 UNIT/ML Subcutaneous before breakfast and lunch 8 units Active Levothyroxine Sodium 200 MCG TAKE ONE (1 ) TABLET BY MOUTH ONCE DAILY IN THE MORNING ON AN EMPTY STOMACH 30 Active Protonix 40 mg Orally Once a day 1 capsule 24h 30 Active RESULTS No Results PROCEDURES Procedure Date Ordered Result Body Site [facility] VISIT ESTABLISHED PATIENT Dec 21, 2017 INSTRUCTIONS MEDICATIONS ADMINISTERED No Known Medications MEDICAL [...]
--- OUTSIDE RECORDS SUMMARY | 2019-05-16 03:02 | XMS REPORT ---
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 Active 091440239 Problem Type 2 diabetes mellitus wit h hyperglycemia, unspecified whether predatory animal exterminator insulin use E11.65 Active 05255426599 9109 Problem Acquired hypothyroidism E03.9 Active 392812804 Problem Gastroesophageal reflux disease without esophagitis K21.9 Active 161202534 Problem Long-term use of high-risk medication Z79.899 Active 810657605 Problem Essential hypertension I10 Active 68606542 ALLERGIES No Information ENCOUNTERS Encounter Location Date Diagnosis [facility] [address] [id number] [address] [place] [phone] Feb, [facility] [address] [id number] [address] [place] [phone] Dec, [facility] [address] [id number] [address] [place] [phone] Dec, Type 2 diabetes mellitus wit h hyperglycemia, unspecified whether predatory animal exterminator insulin use E11.65 ; Essential hypertension I10 ; Long-term use of high-risk medication Z79.899 and Vasculogenic erectile dysfunction, unspecified vasculogenic erectile dysfunction type N52.9 [facility] [address] [id number] [address] [place] [phone] Dec, [facility] [address] [id number] [address] [place] [phone] Dec, [facility] [address] [id number] [address] [place] [phone] Oct, Type 1 diabetes mellitus wit hout complication E10.9 [facility] [address] [id number] [address] [place] [phone] Oct, Gastroesophageal reflux dise ase without esophagitis K21.9 [facility] [address] [id number] [address] [place] [phone] September, Type 1 diabetes mellitus wit hout complication E10.9 [facility] [address] [id number] [address] [place] [phone] September, [facility] [address] [id number] [address] [place] [phone] Aug, [facility] [address] [id number] [address] [place] [phone] Aug, Type 1 diabetes mellitus wit hout complication E10.9 [facility] [address] [id number] [address] [place] [phone] Jul, Type 1 diabetes mellitus wit hout complication E10.9 [facility] [address] [id number] [address] [place] [phone] Jul, [facility] [address] [id number] [address] [place] [phone] Jul, [facility] [address] [id number] [address] [place] [phone] Jun, [facility] [address] [id number] [address] [place] [phone] Jun, [facility] [address] [id number] [address] [place] [phone] Jun, Type 1 diabetes mellitus wit hout complication E10.9 [facility] [address] [id number] [address] [place] [phone] May, Type 1 diabetes mellitus wit hout complication E10.9 [facility] [address] [id number] [address] [place] [phone] May, [facility] [address] [id number] [address] [place] [phone] May, Type 1 diabetes mellitus wit hout complication E10.9 [facility] [address] [id number] [address] [place] [phone] May, Type 1 diabetes mellitus wit hout complication E10.9 ; Acquired hypothyroidism E03.9 ; Gastroesophageal reflux disease without esophagitis K21.9 ; Essential hypertension I10 ; Long-term use of high-risk medication Z79.899 ; Screening for colon cancer Z12.11 and Frequency of urination R35.0 [facility] [address] [id number] [address] [place] [phone] Apr, [facility] [address] [id number] [address] [place] [phone] Mar, [facility] [address] [id number] [address] [place] [phone] Mar, [facility] [address] [id number] [address] [place] [phone] Dec, [facility] [address] [id number] [address] [place] [phone] Dec, [facility] [address] [id number] [address] [place] [phone] Dec, Type 1 diabetes mellitus wit hout complication E10.9 [facility] [address] [id number] [address] [place] [phone] Nov, [facility] [address] [id number] [address] [place] [phone] Nov, [facility] [address] [id number] [address] [place] [phone] Nov, Type 1 diabetes mellitus wit hout complication E10.9 [facility] [address] [id number] [address] [place] [phone] Nov, [facility] [address] [id number] [address] [place] [id number] Nov, Type 1 diabetes mellitus wit hout complication E10.9 [facility] [address] [id number] [address] [place] [phone] Nov, [facility] [address] [id number] [address] [place] [phone] Nov, [facility] [address] [id number] [address] [place] [phone] Nov, [facility] [address] [id number] [address] [place] [address] Nov, Type 1 diabetes mellitus wit hout complication E10.9 ; Acquired hypothyroidism E03.9 ; Gastroesophageal reflux disease without esophagitis K21.9 ; Screening cholesterol level Z13.220 ; Essential hypertension I10 and Khadra onychomycosis B37.2 [facility] [address] [id number] [address] [place] [phone] Oct, Type 1 diabetes mellitus wit hout complication E10.9 [facility] [address] [id number] [address] [place] [phone] Oct, [facility] [address] [id number] [address] [place] [phone] Oct, [facility] [address] [id number] [address] [place] [phone] September, [facility] [address] [id number] [address] [place] [phone] Aug, [facility] [address] [id number] [address] [place] [phone] Jul, [facility] [address] [id number] [address] [place] [phone] Jul, [facility] [address] [id number] [address] [place] [phone] Jul, [facility] [address] [id number] [address] [place] [phone] Jul, [facility] [address] [id number] [address] [place] [phone] Jul, Type 1 diabetes mellitus wit hout complication E10.9 ; Acquired hypothyroidism E03.9 ; Gastroesophageal reflux disease without esophagitis K21.9 ; Khadra onychomycosis B37.2 and Essential hypertension I10 [facility] [address] [id number] [address] [place] [phone] 14 Jul, 2016 [facility] [place] [address] [place] [id number] Jul, [facility] [address] [id number] [address] [place] [phone] Jun, [facility] [address] [id number] [address] [place] [phone] Jun, Acquired hypothyroidism E03. 9 ; Gastroesophageal reflux disease without esophagitis K21.9 and Type 1 diabetes mellitus without complication E10.9 [facility] [address] [id number] [address] [place] [phone] Jun, [facility] [address] [id number] [address] [place] [phone] Jun, [facility] [address] [id number] [address] [place] [phone] Jun, Type 1 diabetes mellitus wit hout complication E10.9 ; Acquired hypothyroidism E03.9 ; Gastroesophageal reflux disease without esophagitis K21.9 and Screening cholesterol level Z13.220 [facility] [address] [id number] [address] [place] [phone] Jun, IMMUNIZATIONS No Known Immunizations SOCIAL HISTORY [...]
--- OUTSIDE RECORDS SUMMARY | 2019-05-16 03:02 | XMS REPORT ---
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 whether vending machine operator insulin use E11.65 Active 24610295140 9109 Problem Acquired hypothyroidism E03.9 Active 851187484 Problem Gastroesophageal reflux disease without esophagitis K21.9 Active 305615109 Problem Long-term use of high-risk medication Z79.899 Active 932934494 Problem Essential hypertension I10 Active [id number] ALLERGIES No Information ENCOUNTERS Encounter Location Date Diagnosis [facility] [address] [facility] [id number] [address] [place] [id number] Feb, [facility] [address] [facility] [id number] [address] [place] [phone] Dec, [facility] [address] [facility] [id number] [address] [place] [phone] Dec, Type 2 diabetes mellitus wit h hyperglycemia, unspecified whether vending machine operator insulin use E11.65 ; Essential hypertension I10 ; Long-term use of high-risk medication Z79.899 and Vasculogenic erectile dysfunction, unspecified vasculogenic erectile dysfunction type N52.9 [facility] [address] [facility] [id number] [address] [place] [phone] Dec, [facility] [address] [facility] [id number] [address] [place] [phone] Dec, [facility] [address] [facility] [id number] [address] [place] [phone] Oct, Type 1 diabetes mellitus wit hout complication E10.9 [facility] [address] [id number] [address] [place] [phone] Oct, Gastroesophageal reflux dise ase without esophagitis K21.9 [facility] [address] [id number] [address] [place] [phone] September, Type 1 diabetes mellitus wit hout complication E10.9 [facility] [address] [id number] [address] [place] [phone] September, [facility] [address] [id number] [address] [place] [phone] Aug, [facility] [address] [id number] [address] [place] [phone] Aug, Type 1 diabetes mellitus wit hout complication E10.9 [facility] [address] [id number] [address] [place] [phone] Jul, Type 1 diabetes mellitus wit hout complication E10.9 [facility] [address] [id number] [address] [place] [phone] Jul, [facility] [address] [id number] [address] [place] [phone] Jul, [facility] [address] [id number] [address] [place] [phone] Jun, [facility] [address] [id number] [address] [place] [phone] Jun, [facility] [address] [id number] [address] [place] [phone] Jun, Type 1 diabetes mellitus wit hout complication E10.9 [facility] [address] [id number] [address] [place] [phone] May, Type 1 diabetes mellitus wit hout complication E10.9 [facility] [address] [id number] [address] [place] [phone] May, [facility] [address] [id number] [address] [place] [phone] May, Type 1 diabetes mellitus wit hout complication E10.9 [facility] [address] [id number] [address] [place] [phone] May, Type 1 diabetes mellitus wit hout complication E10.9 ; Acquired hypothyroidism E03.9 ; Gastroesophageal reflux disease without esophagitis K21.9 ; Essential hypertension I10 ; Long-term use of high-risk medication Z79.899 ; Screening for colon cancer Z12.11 and Frequency of urination R35.0 [facility] [address] [id number] [address] [place] [phone] Apr, [facility] [address] [id number] [address] [place] [phone] Mar, [facility] [address] [facility] [id number] [address] [place] [phone] Mar, [facility] [address] [id number] [address] [place] [phone] Dec, [facility] [address] [id number] [address] [place] [phone] Dec, [facility] [address] [facility] [id number] [address] [place] [phone] Dec, Type 1 diabetes mellitus wit hout complication E10.9 [facility] [address] [id number] [address] [place] [phone] Nov, [facility] [address] [id number] [address] [place] [phone] Nov, [facility] [address] [id number] [address] [place] [id number] Nov, Type 1 diabetes mellitus wit hout complication E10.9 [facility] [address] [id number] [address] [place] [phone] Nov, [facility] [address] [id number] [address] [place] [phone] Nov, Type 1 diabetes mellitus wit hout complication E10.9 [facility] [address] [id number] [address] [place] [phone] Nov, [facility] [address] [facility] [id number] [address] [place] [phone] Nov, [facility] [address] [id number] [address] [place] [phone] Nov, [facility] [address] [id number] [address] [place] [phone] Nov, Type 1 diabetes mellitus wit hout complication E10.9 ; Acquired hypothyroidism E03.9 ; Gastroesophageal reflux disease without esophagitis K21.9 ; Screening cholesterol level Z13.220 ; Essential hypertension I10 and Khadra onychomycosis B37.2 [facility] [address] [id number] [address] [place] [phone] Oct, Type 1 diabetes mellitus wit hout complication E10.9 [facility] [address] [id number] [address] [place] [phone] Oct, [facility] [address] [id number] [address] [place] [phone] Oct, [facility] [address] [facility] [id number] [address] [place] [phone] September, [facility] [address] [id number] [address] [place] [phone] Aug, [facility] [address] [id number] [address] [place] [phone] Jul, [facility] [address] [id number] [address] [place] [phone] Jul, [facility] [address] [id number] [address] [place] [phone] Jul, [facility] [address] [id number] [address] [place] [phone] Jul, [facility] [address] [facility] [id number] [address] [place] [phone] Jul, Type 1 diabetes mellitus wit hout complication E10.9 ; Acquired hypothyroidism E03.9 ; Gastroesophageal reflux disease without esophagitis K21.9 ; Khadra onychomycosis B37.2 and Essential hypertension I10 [facility] [address] [facility] [id number] [address] [place] [phone] 14 Jul, [address] [facility] [address] [place] [id number] Jul, [facility] [address] [facility] [id number] [address] [place] [phone] Jun, [facility] [address] [facility] [id number] [address] [place] [phone] Jun, Acquired hypothyroidism E03. 9 ; Gastroesophageal reflux disease without esophagitis K21.9 and Type 1 diabetes mellitus without complication E10.9 [facility] [address] [facility] [id number] [address] [place] [id number] Jun, [facility] [address] [facility] [id number] [address] [place] [phone] Jun, [facility] [address] [facility] [id number] [address] [place] [phone] Jun, Type 1 diabetes mellitus wit hout complication E10.9 ; Acquired hypothyroidism E03.9 ; Gastroesophageal reflux disease without esophagitis K21.9 and Screening cholesterol level Z13.220 [facility] [address] [facility] [id number] [address] [place] [phone] Jun, IMMUNIZATIONS No Known Immunizations SOCIAL HISTORY [...]
--- OUTSIDE RECORDS SUMMARY | 2019-05-16 03:02 | XMS REPORT ---
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 Active 000479118 Problem Type 2 diabetes mellitus wit h hyperglycemia, unspecified whether rn long term care insulin use E11.65 Active 81353553878 9109 Problem Acquired hypothyroidism E03.9 Active 811924297 Problem Gastroesophageal reflux disease without esophagitis K21.9 Active 688792509 Problem Long-term use of high-risk medication Z79.899 Active 771337067 Problem Essential hypertension I10 Active 13872128 ALLERGIES No Information ENCOUNTERS Encounter Location Date Diagnosis [facility] [address] [facility] [id number] [address] [place] [phone] Feb, [facility] [address] [facility] [id number] [address] [place] [phone] Dec, [facility] [address] [facility] [id number] [address] [place] [phone] Dec, Type 2 diabetes mellitus wit h hyperglycemia, unspecified whether rn long term care insulin use E11.65 ; Essential hypertension I10 ; Long-term use of high-risk medication Z79.899 and Vasculogenic erectile dysfunction, unspecified vasculogenic erectile dysfunction type N52.9 [facility] [address] [facility] [id number] [address] [place] [phone] Dec, [facility] [address] [facility] [id number] [address] [place] [phone] Dec, [facility] [address] [facility] [id number] [address] [place] [phone] Oct, Type 1 diabetes mellitus wit hout complication E10.9 [facility] [address] [id number] [address] [place] [phone] Oct, Gastroesophageal reflux dise ase without esophagitis K21.9 [facility] [address] [id number] [address] [place] [phone] September, Type 1 diabetes mellitus wit hout complication E10.9 [facility] [address] [id number] [address] [place] [phone] September, [facility] [address] [id number] [address] [place] [phone] Aug, [facility] [address] [id number] [address] [place] [phone] Aug, Type 1 diabetes mellitus wit hout complication E10.9 [facility] [address] [id number] [address] [place] [phone] Jul, Type 1 diabetes mellitus wit hout complication E10.9 [facility] [address] [id number] [address] [place] [phone] Jul, [facility] [address] [id number] [address] [place] [phone] Jul, [facility] [address] [id number] [address] [place] [phone] Jun, [facility] [address] [id number] [address] [place] [phone] Jun, [facility] [address] [id number] [address] [place] [phone] Jun, Type 1 diabetes mellitus wit hout complication E10.9 [facility] [address] [id number] [address] [place] [phone] May, Type 1 diabetes mellitus wit hout complication E10.9 [facility] [address] [id number] [address] [place] [phone] May, [facility] [address] [id number] [address] [place] [phone] May, Type 1 diabetes mellitus wit hout complication E10.9 [facility] [address] [id number] [address] [place] [phone] May, Type 1 diabetes mellitus wit hout complication E10.9 ; Acquired hypothyroidism E03.9 ; Gastroesophageal reflux disease without esophagitis K21.9 ; Essential hypertension I10 ; Long-term use of high-risk medication Z79.899 ; Screening for colon cancer Z12.11 and Frequency of urination R35.0 [facility] [address] [id number] [address] [place] [phone] Apr, [facility] [address] [id number] [address] [place] [phone] Mar, [facility] [address] [facility] [id number] [address] [place] [phone] Mar, [facility] [address] [id number] [address] [place] [phone] Dec, [facility] [address] [id number] [address] [place] [phone] Dec, [facility] [address] [facility] [id number] [address] [place] [phone] Dec, Type 1 diabetes mellitus wit hout complication E10.9 [facility] [address] [id number] [address] [place] [phone] Nov, [facility] [address] [id number] [address] [place] [phone] Nov, [facility] [address] [id number] [address] [place] [phone] Nov, Type 1 diabetes mellitus wit hout complication E10.9 [facility] [address] [id number] [address] [place] [phone] Nov, [facility] [address] [id number] [address] [place] [phone] Nov, Type 1 diabetes mellitus wit hout complication E10.9 [facility] [address] [id number] [address] [place] [phone] Nov, [facility] [address] [facility] [id number] [address] [place] [phone] Nov, [facility] [address] [id number] [address] [place] [phone] Nov, [facility] [address] [id number] [address] [place] [phone] Nov, Type 1 diabetes mellitus wit hout complication E10.9 ; Acquired hypothyroidism E03.9 ; Gastroesophageal reflux disease without esophagitis K21.9 ; Screening cholesterol level Z13.220 ; Essential hypertension I10 and Khadra onychomycosis B37.2 [facility] [address] [id number] [address] [place] [phone] Oct, Type 1 diabetes mellitus wit hout complication E10.9 [facility] [address] [id number] [address] [place] [phone] Oct, [facility] [address] [id number] [address] [place] [phone] Oct, [facility] [address] [facility] [id number] [address] [place] [phone] September, [facility] [address] [id number] [address] [place] [phone] Aug, [facility] [address] [id number] [address] [place] [phone] Jul, [facility] [address] [id number] [address] [place] [phone] Jul, [facility] [address] [id number] [address] [place] [phone] Jul, [facility] [address] [id number] [address] [place] [phone] Jul, [facility] [address] [facility] [id number] [address] [place] [phone] Jul, Type 1 diabetes mellitus wit hout complication E10.9 ; Acquired hypothyroidism E03.9 ; Gastroesophageal reflux disease without esophagitis K21.9 ; Khadra onychomycosis B37.2 and Essential hypertension I10 [facility] [address] [facility] [id number] [address] [place] [phone] 14 Jul, [address] [facility] [address] [place] [id number] Jul, [facility] [address] [facility] [id number] [address] [place] [phone] Jun, [facility] [address] [facility] [id number] [address] [place] [phone] Jun, Acquired hypothyroidism E03. 9 ; Gastroesophageal reflux disease without esophagitis K21.9 and Type 1 diabetes mellitus without complication E10.9 [facility] [address] [facility] [id number] [address] [place] [phone] Jun, [facility] [address] [facility] [id number] [address] [place] [phone] Jun, [facility] [address] [facility] [id number] [address] [place] [phone] Jun, Type 1 diabetes mellitus wit hout complication E10.9 ; Acquired hypothyroidism E03.9 ; Gastroesophageal reflux disease without esophagitis K21.9 and Screening cholesterol level Z13.220 [facility] [address] [facility] [id number] [address] [place] [phone] Jun, IMMUNIZATIONS No Known Immunizations SOCIAL HISTORY Never Assessed REASON FOR VISIT Insulin Syringe PLAN OF CARE VITAL SIGNS MEDICATIONS Medication Instructions Dosage Frequency Start Date End Date Duration S tatus Insulin Syringe 31G X 5/16" 0.3 ML subcutaneously 4 times a day DX: E11.65 as directed Dec, Active RESULTS No Results PROCEDURES No Known [...]
--- OUTSIDE RECORDS SUMMARY | 2019-05-16 03:02 | XMS REPORT ---
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.65 Active [id number] 9109 Problem Acquired hypothyroidism E03.9 Active 221891119 Problem Gastroesophageal reflux disease without esophagitis K21.9 Active 468526632 Problem Long-term use of high-risk medication Z79.899 Active 822863818 Problem Essential hypertension I10 Active [id number] ALLERGIES No Information ENCOUNTERS Encounter Location Date Diagnosis [place] [address] [facility] [id number] [address] [place] [phone] Jan, [facility] [address] [facility] [id number] [address] [place] [phone] Dec, [facility] [address] [facility] [id number] [address] [place] [phone] Dec, Type 2 diabetes mellitus wit h hyperglycemia, unspecified whether exterminator termite insulin use E11.65 ; Essential hypertension I10 ; Long-term use of high-risk medication Z79.899 and Vasculogenic erectile dysfunction, unspecified vasculogenic erectile dysfunction type N52.9 [facility] [address] [facility] [id number] [address] [place] [phone] Dec, [facility] [address] [facility] [id number] [address] [place] [phone] Dec, [facility] [address] [facility] [id number] [address] [place] [phone] Oct, Type 1 diabetes mellitus wit hout complication E10.9 [facility] [address] [id number] [address] [place] [phone] Oct, Gastroesophageal reflux dise ase without esophagitis K21.9 [facility] [address] [id number] [address] [place] [phone] September, Type 1 diabetes mellitus wit hout complication E10.9 [facility] [address] [id number] [address] [place] [phone] September, [facility] [address] [id number] [address] [place] [phone] Aug, [facility] [address] [id number] [address] [place] [phone] Aug, Type 1 diabetes mellitus wit hout complication E10.9 [facility] [address] [id number] [address] [place] [phone] Jul, Type 1 diabetes mellitus wit hout complication E10.9 [facility] [address] [id number] [address] [place] [phone] Jul, [facility] [address] [id number] [address] [place] [phone] Jul, [facility] [address] [id number] [address] [place] [phone] Jun, [facility] [address] [id number] [address] [place] [phone] Jun, [facility] [address] [id number] [address] [place] [phone] Jun, Type 1 diabetes mellitus wit hout complication E10.9 [facility] [address] [id number] [address] [place] [phone] May, Type 1 diabetes mellitus wit hout complication E10.9 [facility] [address] [id number] [address] [place] [phone] May, [facility] [address] [id number] [address] [place] [phone] May, Type 1 diabetes mellitus wit hout complication E10.9 [facility] [address] [id number] [address] [place] [id number] May, Type 1 diabetes mellitus wit hout complication E10.9 ; Acquired hypothyroidism E03.9 ; Gastroesophageal reflux disease without esophagitis K21.9 ; Essential hypertension I10 ; Long-term use of high-risk medication Z79.899 ; Screening for colon cancer Z12.11 and Frequency of urination R35.0 [facility] [address] [id number] [address] [place] [phone] Apr, [facility] [address] [id number] [address] [place] [phone] Mar, [facility] [address] [facility] [id number] [address] [place] [phone] Mar, [facility] [address] [id number] [address] [place] [phone] Dec, [facility] [address] [id number] [address] [place] [phone] Dec, [facility] [address] [facility] [id number] [address] [place] [phone] Dec, Type 1 diabetes mellitus wit hout complication E10.9 [facility] [address] [id number] [address] [place] [phone] Nov, [facility] [address] [id number] [address] [place] [phone] Nov, [facility] [address] [id number] [address] [place] [phone] Nov, Type 1 diabetes mellitus wit hout complication E10.9 [facility] [address] [facility] [id number] [address] [place] [phone] Nov, [facility] [address] [id number] [address] [place] [phone] Nov, Type 1 diabetes mellitus wit hout complication E10.9 [facility] [address] [id number] [address] [place] [phone] Nov, [facility] [address] [facility] [id number] [address] [place] [id number] Nov, [facility] [address] [id number] [address] [place] [phone] Nov, [facility] [address] [facility] [id number] [address] [place] [phone] Nov, Type 1 diabetes mellitus wit hout complication E10.9 ; Acquired hypothyroidism E03.9 ; Gastroesophageal reflux disease without esophagitis K21.9 ; Screening cholesterol level Z13.220 ; Essential hypertension I10 and Khadra onychomycosis B37.2 [facility] [address] [id number] [address] [place] [phone] Oct, Type 1 diabetes mellitus wit hout complication E10.9 [facility] [address] [id number] [address] [place] [id number] Oct, [facility] [address] [id number] [address] [place] [phone] Oct, [facility] [address] [id number] [address] [place] [phone] September, [facility] [address] [id number] [address] [place] [phone] Aug, [facility] [address] [id number] [address] [place] [phone] Jul, [facility] [address] [id number] [address] [place] [phone] Jul, [facility] [address] [id number] [address] [place] [phone] Jul, [facility] [address] [id number] [address] [place] [phone] 15 Jul, 2016 [facility] [address] [facility] [id number] [address] [place] [phone] 15 Jul, 2016 Type 1 diabetes mellitus wit hout complication E10.9 ; Acquired hypothyroidism E03.9 ; Gastroesophageal reflux disease without esophagitis K21.9 ; Khadra onychomycosis B37.2 and Essential hypertension I10 [place] [address] [place] [id number] [address] [place] [phone] 14 Jul, 2016 [facility] [address] [place] [id number] Jul, [place] [address] [facility] [id number] [address] [place] [phone] Jun, [place] [address] [place] [id number] [address] [place] [phone] Jun, Acquired hypothyroidism E03. 9 ; Gastroesophageal reflux disease without esophagitis K21.9 and Type 1 diabetes mellitus without complication E10.9 [place] [address] [facility] [id number] [address] [place] [phone] Jun, [place] [address] [place] [id number] [address] [place] [phone] Jun, [place] [address] [facility] [id number] [address] [place] [phone] Jun, Type 1 diabetes mellitus wit hout complication E10.9 ; Acquired hypothyroidism E03.9 ; Gastroesophageal reflux disease without esophagitis K21.9 and Screening cholesterol level Z13.220 [place] [address] [facility] [id number] [address] [place] [phone] 13 Jun, 2016 IMMUNIZATIONS No Known Immunizations SOCIAL HISTORY Never Assessed REASON FOR VISIT Lab (walk-in) PLAN OF CARE VITAL SIGNS MEDICATIONS Unknown Medications RESULTS No Results PROCEDURES Procedure Date Ordered Result Body Site LAB NOT BILLED BY [place] September 22, 2017 INSTRUCTIONS MEDICATIONS ADMINISTERED No Known Medications [...]
--- OUTSIDE RECORDS SUMMARY | 2019-05-16 03:02 | XMS REPORT ---
Author Author Ignacio DEE Organization [facility] Address [address] [place] [address] Care Team Providers Care Informatics Educator Name Role Phone KATIE DEE Unavailable PROBLEMS Type Condition ICD9-CM Code EME19-DQ Code Onset Dates Condition S tatus SNOMED Code Problem Type 1 diabetes mellitus with hyperglycemia E10.65 Active [id number] Problem Vasculogenic erectile dysfun ction, unspecified vasculogenic erectile dysfunction type N52.9 Active 687672075 Problem Gastroesophageal reflux disease without esophagitis K21.9 Active 260237013 Problem Acquired hypothyroidism E03.9 Active 497056557 Problem Long-term use of high-risk medication Z79.899 Active 245993424 Problem Essential hypertension I10 Active 44095200 ALLERGIES No Information ENCOUNTERS Encounter Location Date Diagnosis [place] [address] [place] [id number] [address] [place] [phone] Mar, [place] [address] [place] [id number] [address] [place] [phone] 06 Mar, 2018 Gastroesophageal reflux dise ase without esophagitis K21.9 [facility] [address] [facility] [id number] [address] [place] [phone] Feb, [facility] [address] [place] [id number] [address] [place] [phone] Feb, Type 1 diabetes mellitus wit h hyperglycemia E10.65 ; Essential hypertension I10 ; Long-term use of high-risk medication Z79.899 ; Vasculogenic erectile dysfunction, unspecified vasculogenic erectile dysfunction type N52.9 and Encounter for immunization Z23 [place] [address] [facility] [id number] [address] [place] [phone] Feb, Type 2 diabetes mellitus wit h hyperglycemia, unspecified whether watermaster insulin use E11.65 [facility] [address] [id number] [address] [place] [phone] Feb, [facility] [address] [facility] [id number] [address] [place] [phone] Feb, Type 1 diabetes mellitus wit hout complication E10.9 [facility] [address] [facility] [id number] [address] [place] [phone] Feb, [facility] [address] [facility] [id number] [address] [place] [phone] Dec, [facility] [address] [facility] [id number] [address] [place] [phone] Dec, Type 2 diabetes mellitus wit h hyperglycemia, unspecified whether watermaster insulin use E11.65 ; Essential hypertension I10 ; Long-term use of high-risk medication Z79.899 and Vasculogenic erectile dysfunction, unspecified vasculogenic erectile dysfunction type N52.9 [facility] [address] [facility] [id number] [address] [place] [phone] Dec, [facility] [address] [facility] [id number] [address] [place] [phone] Dec, [facility] [address] [facility] [id number] [address] [place] [phone] Oct, Type 1 diabetes mellitus wit hout complication E10.9 [facility] [address] [facility] [id number] [address] [place] [phone] Oct, Gastroesophageal reflux dise ase without esophagitis K21.9 [facility] [address] [facility] [id number] [address] [place] [phone] September, Type 1 diabetes mellitus wit hout complication E10.9 [facility] [address] [facility] [id number] [address] [place] [phone] September, [facility] [address] [facility] [id number] [address] [place] [phone] Aug, [facility] [address] [facility] [id number] [address] [place] [phone] Aug, Type 1 diabetes mellitus wit hout complication E10.9 [facility] [address] [facility] [id number] [address] [place] [phone] Jul, Type 1 diabetes mellitus wit hout complication E10.9 [facility] [address] [facility] [id number] [address] [place] [phone] Jul, [facility] [address] [facility] [id number] [address] [place] [phone] Jul, [facility] [address] [facility] [id number] [address] [place] [phone] Jun, [facility] [address] [facility] [id number] [address] [place] [id number] Jun, [facility] [address] [facility] [id number] [address] [place] [phone] Jun, Type 1 diabetes mellitus wit hout complication E10.9 [facility] [address] [facility] [id number] [address] [place] [phone] May, Type 1 diabetes mellitus wit hout complication E10.9 [facility] [address] [place] [id number] [address] [place] [phone] May, [facility] [address] [facility] [id number] [address] [place] [phone] May, Type 1 diabetes mellitus wit hout complication E10.9 [facility] [address] [place] [id number] [address] [place] [id number] May, Type 1 diabetes mellitus wit hout complication E10.9 ; Acquired hypothyroidism E03.9 ; Gastroesophageal reflux disease without esophagitis K21.9 ; Essential hypertension I10 ; Long-term use of high-risk medication Z79.899 ; Screening for colon cancer Z12.11 and Frequency of urination R35.0 [facility] [address] [facility] [id number] [address] [place] [phone] Apr, [facility] [address] [place] [id number] [address] [place] [phone] Mar, [facility] [address] [id number] [address] [place] [phone] Mar, [facility] [address] [id number] [address] [place] [id number] Dec, [facility] [address] [id number] [address] [place] [phone] Dec, [facility] [address] [id number] [address] [place] [phone] Dec, Type 1 diabetes mellitus wit hout complication E10.9 [facility] [address] [id number] [address] [place] [phone] Nov, [facility] [address] [id number] [address] [place] [phone] Nov, [facility] [address] [id number] [address] [place] [phone] Nov, Type 1 diabetes mellitus wit hout complication E10.9 [facility] [address] [id number] [address] [place] [phone] Nov, [facility] [address] [id number] [address] [place] [phone] Nov, Type 1 diabetes mellitus wit hout complication E10.9 [facility] [address] [id number] [address] [place] [phone] Nov, [facility] [address] [id number] [address] [place] [phone] Nov, [facility] [address] [id number] [address] [place] [phone] Nov, [facility] [address] [facility] [id number] [address] [place] [phone] Nov, Type 1 diabetes mellitus wit hout complication E10.9 ; Acquired hypothyroidism E03.9 ; Gastroesophageal reflux disease without esophagitis K21.9 ; Screening cholesterol level Z13.220 ; Essential hypertension I10 and Khadra onychomycosis B37.2 [facility] [address] [id number] [address] [place] [phone] 28 Oct, 2016 Type 1 diabetes mellitus wit hout complication E10.9 [facility] [address] [id number] [address] [place] [phone] Oct, [facility] [address] [id number] [address] [place] [phone] 05 Oct, 2016 [facility] [address] [id number] [address] [place] [phone] September, [facility] [address] [id number] [address] [place] [phone] Aug, [facility] [address] [id number] [address] [place] [phone] Jul, [facility] [address] [id number] [address] [place] [id number] Jul, [facility] [address] [id number] [address] [place] [phone] Jul, [facility] [address] [id number] [address] [place] [phone] Jul, [facility] [address] [id number] [address] [place] [id number] Jul, Type 1 diabetes mellitus wit hout complication E10.9 ; Acquired hypothyroidism E03.9 ; Gastroesophageal reflux disease without esophagitis K21.9 ; Khadra onychomycosis B37.2 and Essential hypertension I10 [facility] [address] [id number] [address] [place] [phone] 14 Jul, 2016 [facility] [address] [place] [id number] Jul, [facility] [address] [id number] [address] [place] [phone] Jun, [facility] [address] [facility] [id number] [address] [place] [phone] 23 Jun, 2016 Acquired hypothyroidism E03. 9 ; Gastroesophageal reflux disease without esophagitis K21.9 and Type 1 diabetes mellitus without complication E10.9 [place] [address] [place] [id number] [address] [place] [phone] 22 Jun, 2016 [place] [address] [place] [id number] [address] [place] [phone] Jun, [place] [address] [place] [id number] [address] [place] [id number] 15 Jun, 2016 Type 1 diabetes mellitus wit hout complication E10.9 ; Acquired hypothyroidism E03.9 ; Gastroesophageal reflux disease without esophagitis K21.9 and Screening cholesterol level Z13.220 [place] [address] [facility] [id number] [address] [place] [id number] 13 Jun, 2016 IMMUNIZATIONS No Known Immunizations SOCIAL HISTORY Never Assessed REASON FOR VISIT Refill Request PLAN OF CARE VITAL SIGNS MEDICATIONS Medication Instructions Dosage Frequency Start Date End Date Duration S tatus NovoLog 100 UNIT/ML Subcutaneous 3 times a day with meals 10 -20 units per sliding scale 90 days Active Protonix 40 mg Orally Once a day 1 capsule 24h 90 da ys Active RESULTS No Results PROCEDURES No Known [...]
--- OUTSIDE RECORDS SUMMARY | 2019-05-16 03:02 | XMS REPORT ---
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 Active 696111132 Problem Type 2 diabetes mellitus wit h hyperglycemia, unspecified whether terminal computer operator insulin use E11.65 Active 24765086674 9109 Problem Acquired hypothyroidism E03.9 Active 860744113 Problem Gastroesophageal reflux disease without esophagitis K21.9 Active 117317337 Problem Long-term use of high-risk medication Z79.899 Active 059693198 Problem Essential hypertension I10 Active 02288018 ALLERGIES No Information ENCOUNTERS Encounter Location Date Diagnosis [facility] [address] [facility] [id number] [address] [place] [phone] Mar, [facility] [address] [facility] [id number] [address] [place] [phone] 24 Feb, 2018 [facility] [address] [facility] [id number] [address] [place] [phone] Feb, Type 2 diabetes mellitus wit h hyperglycemia, unspecified whether terminal computer operator insulin use E11.65 [facility] [address] [id number] [address] [place] [phone] Feb, [facility] [address] [facility] [id number] [address] [place] [phone] Feb, Type 1 diabetes mellitus wit hout complication E10.9 [facility] [address] [facility] [id number] [address] [place] [phone] Feb, [facility] [address] [facility] [id number] [address] [place] [phone] Dec, [facility] [address] [facility] [id number] [address] [place] [phone] Dec, Type 2 diabetes mellitus wit h hyperglycemia, unspecified whether terminal computer operator insulin use E11.65 ; Essential hypertension I10 ; Long-term use of high-risk medication Z79.899 and Vasculogenic erectile dysfunction, unspecified vasculogenic erectile dysfunction type N52.9 [facility] [address] [facility] [id number] [address] [place] [phone] Dec, [facility] [address] [facility] [id number] [address] [place] [phone] Dec, [facility] [address] [facility] [id number] [address] [place] [phone] Oct, Type 1 diabetes mellitus wit hout complication E10.9 [facility] [address] [facility] [id number] [address] [place] [phone] Oct, Gastroesophageal reflux dise ase without esophagitis K21.9 [facility] [address] [facility] [id number] [address] [place] [phone] September, Type 1 diabetes mellitus wit hout complication E10.9 [facility] [address] [facility] [id number] [address] [place] [phone] September, [facility] [address] [facility] [id number] [address] [place] [phone] Aug, [facility] [address] [facility] [id number] [address] [place] [phone] Aug, Type 1 diabetes mellitus wit hout complication E10.9 [facility] [address] [facility] [id number] [address] [place] [phone] Jul, Type 1 diabetes mellitus wit hout complication E10.9 [facility] [address] [facility] [id number] [address] [place] [phone] Jul, [facility] [address] [facility] [id number] [address] [place] [phone] Jul, [facility] [address] [facility] [id number] [address] [place] [phone] Jun, [facility] [address] [facility] [id number] [address] [place] [phone] Jun, [facility] [address] [facility] [id number] [address] [place] [phone] Jun, Type 1 diabetes mellitus wit hout complication E10.9 [facility] [address] [facility] [id number] [address] [place] [phone] May, Type 1 diabetes mellitus wit hout complication E10.9 [facility] [address] [facility] [id number] [address] [place] [phone] May, [facility] [address] [facility] [id number] [address] [place] [phone] May, Type 1 diabetes mellitus wit hout complication E10.9 [facility] [address] [facility] [id number] [address] [place] [phone] May, Type 1 diabetes mellitus wit hout complication E10.9 ; Acquired hypothyroidism E03.9 ; Gastroesophageal reflux disease without esophagitis K21.9 ; Essential hypertension I10 ; Long-term use of high-risk medication Z79.899 ; Screening for colon cancer Z12.11 and Frequency of urination R35.0 [facility] [address] [facility] [id number] [address] [place] [phone] Apr, [facility] [address] [facility] [id number] [address] [place] [phone] Mar, [facility] [address] [facility] [id number] [address] [place] [phone] Mar, [facility] [address] [facility] [id number] [address] [place] [phone] Dec, [facility] [address] [facility] [id number] [address] [place] [phone] Dec, [facility] [address] [id number] [address] [place] [phone] Dec, Type 1 diabetes mellitus wit hout complication E10.9 [facility] [address] [id number] [address] [place] [phone] Nov, [facility] [address] [id number] [address] [place] [phone] Nov, [facility] [address] [id number] [address] [place] [phone] Nov, Type 1 diabetes mellitus wit hout complication E10.9 [facility] [address] [id number] [address] [place] [phone] Nov, [facility] [address] [id number] [address] [place] [phone] Nov, Type 1 diabetes mellitus wit hout complication E10.9 [facility] [address] [id number] [address] [place] [phone] Nov, [facility] [address] [id number] [address] [place] [phone] Nov, [facility] [address] [id number] [address] [place] [phone] Nov, [facility] [address] [id number] [address] [place] [phone] Nov, Type 1 diabetes mellitus wit hout complication E10.9 ; Acquired hypothyroidism E03.9 ; Gastroesophageal reflux disease without esophagitis K21.9 ; Screening cholesterol level Z13.220 ; Essential hypertension I10 and Khadra onychomycosis B37.2 [facility] [address] [id number] [address] [place] [phone] Oct, Type 1 diabetes mellitus wit hout complication E10.9 [facility] [address] [id number] [address] [place] [phone] Oct, [facility] [address] [id number] [address] [place] [phone] Oct, [facility] [address] [facility] [id number] [address] [place] [phone] September, [facility] [address] [id number] [address] [place] [phone] Aug, [facility] [address] [facility] [id number] [address] [place] [phone] Jul, [facility] [address] [id number] [address] [place] [phone] Jul, [facility] [address] [id number] [address] [place] [phone] Jul, [facility] [address] [facility] [id number] [address] [place] [phone] Jul, [facility] [address] [facility] [id number] [address] [place] [phone] Jul, Type 1 diabetes mellitus wit hout complication E10.9 ; Acquired hypothyroidism E03.9 ; Gastroesophageal reflux disease without esophagitis K21.9 ; Khadra onychomycosis B37.2 and Essential hypertension I10 [facility] [address] [facility] [id number] [address] [place] [phone] Jul, [facility] [address] [place] [id number] Jul, [facility] [address] [facility] [id number] [address] [place] [phone] Jun, [facility] [address] [facility] [id number] [address] [place] [phone] Jun, Acquired hypothyroidism E03. 9 ; Gastroesophageal reflux disease without esophagitis K21.9 and Type 1 diabetes mellitus without complication E10.9 [facility] [address] [facility] [id number] [address] [place] [phone] Jun, [facility] [address] [facility] [id number] [address] [place] [phone] Jun, [facility] [address] [facility] [id number] [address] [address] 15 Jun, 2016 Type 1 diabetes mellitus wit hout complication E10.9 ; Acquired hypothyroidism E03.9 ; Gastroesophageal reflux disease without esophagitis K21.9 and Screening cholesterol level Z13.220 [facility] [address] [facility] [id number] [address] [address] 13 Jun, 2016 IMMUNIZATIONS No Known Immunizations SOCIAL HISTORY Never Assessed REASON FOR VISIT Refill request PLAN OF CARE VITAL SIGNS MEDICATIONS [...]
--- OUTSIDE RECORDS SUMMARY | 2019-05-16 03:02 | XMS REPORT ---
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 Active 54057668762 9109 Problem Acquired hypothyroidism E03.9 Active 285061806 Problem Gastroesophageal reflux disease without esophagitis K21.9 Active 327539500 Problem Long-term use of high-risk medication Z79.899 Active 137413670 Problem Essential hypertension I10 Active 76120082 ALLERGIES No Information ENCOUNTERS Encounter Location Date Diagnosis [facility] [address] [facility] [id number] [address] [place] [phone] Mar, [facility] [address] [facility] [id number] [address] [place] [phone] 24 Feb, 2018 [facility] [address] [facility] [id number] [address] [place] [phone] Feb, Type 2 diabetes mellitus wit h hyperglycemia, 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.65 [facility] [address] [id number] [address] [place] [phone] Feb, [facility] [address] [facility] [id number] [address] [place] [phone] Feb, Type 1 diabetes mellitus wit hout complication E10.9 [facility] [address] [facility] [id number] [address] [place] [phone] Feb, [facility] [address] [facility] [id number] [address] [place] [phone] Dec, [facility] [address] [facility] [id number] [address] [place] [phone] Dec, Type 2 diabetes mellitus wit h hyperglycemia, 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 E11.65 ; Essential hypertension I10 ; Long-term use of high-risk medication Z79.899 and Vasculogenic erectile dysfunction, unspecified vasculogenic erectile dysfunction type N52.9 [facility] [address] [facility] [id number] [address] [place] [phone] Dec, [facility] [address] [facility] [id number] [address] [place] [phone] Dec, [facility] [address] [facility] [id number] [address] [place] [phone] Oct, Type 1 diabetes mellitus wit hout complication E10.9 [facility] [address] [facility] [id number] [address] [place] [phone] Oct, Gastroesophageal reflux dise ase without esophagitis K21.9 [facility] [address] [facility] [id number] [address] [place] [phone] September, Type 1 diabetes mellitus wit hout complication E10.9 [facility] [address] [facility] [id number] [address] [place] [phone] September, [facility] [address] [facility] [id number] [address] [place] [phone] Aug, [facility] [address] [facility] [id number] [address] [place] [phone] Aug, Type 1 diabetes mellitus wit hout complication E10.9 [facility] [address] [facility] [id number] [address] [place] [phone] Jul, Type 1 diabetes mellitus wit hout complication E10.9 [facility] [address] [facility] [id number] [address] [place] [phone] Jul, [facility] [address] [facility] [id number] [address] [place] [phone] Jul, [facility] [address] [facility] [id number] [address] [place] [phone] Jun, [facility] [address] [facility] [id number] [address] [place] [phone] Jun, [facility] [address] [facility] [id number] [address] [place] [phone] Jun, Type 1 diabetes mellitus wit hout complication E10.9 [facility] [address] [facility] [id number] [address] [place] [phone] May, Type 1 diabetes mellitus wit hout complication E10.9 [facility] [address] [facility] [id number] [address] [place] [phone] May, [facility] [address] [facility] [id number] [address] [place] [phone] May, Type 1 diabetes mellitus wit hout complication E10.9 [facility] [address] [facility] [id number] [address] [place] [phone] May, Type 1 diabetes mellitus wit hout complication E10.9 ; Acquired hypothyroidism E03.9 ; Gastroesophageal reflux disease without esophagitis K21.9 ; Essential hypertension I10 ; Long-term use of high-risk medication Z79.899 ; Screening for colon cancer Z12.11 and Frequency of urination R35.0 [facility] [address] [facility] [id number] [address] [place] [phone] Apr, [facility] [address] [facility] [id number] [address] [place] [phone] Mar, [facility] [address] [facility] [id number] [address] [place] [phone] Mar, [facility] [address] [facility] [id number] [address] [place] [phone] Dec, [facility] [address] [facility] [id number] [address] [place] [phone] Dec, [facility] [address] [id number] [address] [place] [phone] Dec, Type 1 diabetes mellitus wit hout complication E10.9 [facility] [address] [id number] [address] [place] [phone] Nov, [facility] [address] [id number] [address] [place] [phone] Nov, [facility] [address] [id number] [address] [place] [id number] Nov, Type 1 diabetes mellitus wit hout complication E10.9 [facility] [address] [id number] [address] [place] [id number] Nov, [facility] [address] [id number] [address] [place] [phone] Nov, Type 1 diabetes mellitus wit hout complication E10.9 [facility] [address] [id number] [address] [place] [phone] Nov, [facility] [address] [id number] [address] [place] [phone] Nov, [facility] [address] [id number] [address] [place] [phone] Nov, [facility] [address] [id number] [address] [place] [phone] Nov, Type 1 diabetes mellitus wit hout complication E10.9 ; Acquired hypothyroidism E03.9 ; Gastroesophageal reflux disease without esophagitis K21.9 ; Screening cholesterol level Z13.220 ; Essential hypertension I10 and Khadra onychomycosis B37.2 [facility] [address] [id number] [address] [place] [phone] Oct, Type 1 diabetes mellitus wit hout complication E10.9 [facility] [address] [id number] [address] [place] [phone] Oct, [facility] [address] [id number] [address] [place] [phone] Oct, [facility] [address] [facility] [id number] [address] [place] [phone] September, [facility] [address] [id number] [address] [place] [phone] Aug, [facility] [address] [facility] [id number] [address] [place] [phone] Jul, [facility] [address] [id number] [address] [place] [phone] Jul, [facility] [address] [id number] [address] [place] [phone] Jul, [facility] [address] [facility] [id number] [address] [place] [phone] Jul, [facility] [address] [facility] [id number] [address] [place] [phone] Jul, Type 1 diabetes mellitus wit hout complication E10.9 ; Acquired hypothyroidism E03.9 ; Gastroesophageal reflux disease without esophagitis K21.9 ; Khadra onychomycosis B37.2 and Essential hypertension I10 [facility] [address] [facility] [id number] [address] [place] [phone] Jul, [facility] [address] [place] [id number] Jul, [facility] [address] [facility] [id number] [address] [place] [id number] Jun, [facility] [address] [facility] [id number] [address] [place] [phone] Jun, Acquired hypothyroidism E03. 9 ; Gastroesophageal reflux disease without esophagitis K21.9 and Type 1 diabetes mellitus without complication E10.9 [facility] [address] [facility] [id number] [address] [place] [phone] Jun, [facility] [address] [facility] [id number] [address] [place] [phone] Jun, [facility] [address] [facility] [id number] [address] [place] [phone] 15 Jun, 2016 Type 1 diabetes mellitus wit hout complication E10.9 ; Acquired hypothyroidism E03.9 ; Gastroesophageal reflux disease without esophagitis K21.9 and Screening cholesterol level Z13.220 [facility] [address] [facility] [id number] [address] [place] [phone] 13 Jun, 2016 IMMUNIZATIONS No Known Immunizations SOCIAL HISTORY Never Assessed REASON FOR VISIT Refill Request PLAN OF CARE VITAL SIGNS MEDICATIONS Medication Instructions Dosage Frequency Start Date End Date Duration S amarilys Reilly Blood Glucose Test - In Vitro 3 times a day as directed 8h 33 Active RESULTS No Results PROCEDURES No Known [...]
--- OUTSIDE RECORDS SUMMARY | 2019-05-16 03:02 | XMS REPORT ---
Author Author Ignacio DEE Organization [facility] Address [address] [place] [address] Care Team Providers Care Co Teacher Name Role Phone KATIE DEE Unavailable PROBLEMS Type Condition ICD9-CM Code [id number] Code Onset Dates Condition S tatus SNOMED Code Problem Type 1 diabetes mellitus with hyperglycemia E10.65 Active 012087917561189 Problem Vasculogenic erectile dysfun ction, unspecified vasculogenic erectile dysfunction type N52.9 Active 882747873 Problem Gastroesophageal reflux disease without esophagitis K21.9 Active 800919600 Problem Acquired hypothyroidism E03.9 Active 606928589 Problem Long-term use of high-risk medication Z79.899 Active 531191130 Problem Essential hypertension I10 Active 81628025 ALLERGIES No Information ENCOUNTERS Encounter Location Date Diagnosis [facility] [address] [facility] [id number] [address] [place] [phone] Mar, [facility] [address] [facility] [id number] [address] [place] [address] Mar, Type 1 diabetes mellitus wit hout complication E10.9 [facility] [address] [facility] [id number] [address] [place] [phone] Mar, Gastroesophageal reflux dise ase without esophagitis K21.9 [facility] [address] [facility] [id number] [address] [place] [phone] Feb, [facility] [address] [facility] [id number] [address] [place] [address] Feb, Type 1 diabetes mellitus wit h hyperglycemia E10.65 ; Essential hypertension I10 ; Long-term use of high-risk medication Z79.899 ; Vasculogenic erectile dysfunction, unspecified vasculogenic erectile dysfunction type N52.9 and Encounter for immunization Z23 [facility] [address] [id number] [address] [place] [phone] Feb, Type 2 diabetes mellitus wit h hyperglycemia, 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.65 [facility] [address] [id number] [address] [place] [phone] Feb, [facility] [address] [facility] [id number] [address] [place] [address] Feb, Type 1 diabetes mellitus wit hout complication E10.9 [facility] [address] [id number] [address] [place] [phone] Feb, [facility] [address] [id number] [address] [place] [phone] Dec, [facility] [address] [facility] [id number] [address] [place] [phone] Dec, Type 2 diabetes mellitus wit h hyperglycemia, 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 E11.65 ; Essential hypertension I10 ; Long-term use of high-risk medication Z79.899 and Vasculogenic erectile dysfunction, unspecified vasculogenic erectile dysfunction type N52.9 [facility] [address] [id number] [address] [place] [phone] Dec, [facility] [address] [facility] [id number] [address] [place] [phone] Dec, [facility] [address] [facility] [id number] [address] [place] [phone] Oct, Type 1 diabetes mellitus wit hout complication E10.9 [facility] [address] [id number] [address] [place] [address] Oct, Gastroesophageal reflux dise ase without esophagitis K21.9 [facility] [address] [id number] [address] [place] [address] September, Type 1 diabetes mellitus wit hout complication E10.9 [facility] [address] [facility] [id number] [address] [place] [address] September, [facility] [address] [facility] [id number] [address] [place] [phone] Aug, [facility] [address] [facility] [id number] [address] [place] [phone] Aug, Type 1 diabetes mellitus wit hout complication E10.9 [facility] [address] [facility] [id number] [address] [place] [address] Jul, Type 1 diabetes mellitus wit hout complication E10.9 [facility] [address] [facility] [id number] [address] [place] [phone] Jul, [facility] [address] [facility] [id number] [address] [place] [phone] Jul, [facility] [address] [facility] [id number] [address] [place] [address] Jun, [facility] [address] [facility] [id number] [address] [place] [phone] Jun, [facility] [address] [facility] [id number] [address] [place] [phone] Jun, Type 1 diabetes mellitus wit hout complication E10.9 [facility] [address] [facility] [id number] [address] [place] [phone] May, Type 1 diabetes mellitus wit hout complication E10.9 [facility] [address] [facility] [id number] [address] [place] [address] May, [facility] [address] [facility] [id number] [address] [place] [address] May, Type 1 diabetes mellitus wit hout complication E10.9 [facility] [address] [facility] [id number] [address] [place] [address] May, Type 1 diabetes mellitus wit hout complication E10.9 ; Acquired hypothyroidism E03.9 ; Gastroesophageal reflux disease without esophagitis K21.9 ; Essential hypertension I10 ; Long-term use of high-risk medication Z79.899 ; Screening for colon cancer Z12.11 and Frequency of urination R35.0 [facility] [address] [id number] [address] [place] [address], [place] [id number] Apr, [facility] [address] [id number] [address] [place] [address], [place] [id number] Mar, [facility] [address] [id number] [address] [place] [address], [place] [id number] Mar, [facility] [address] [id number] [address] [place] [address], [place] [id number] Dec, [facility] [address] [id number] [address] [place] [address], [place] [id number] Dec, [facility] [address] [id number] [address] [place] [address], [place] [id number] Dec, Type 1 diabetes mellitus wit hout complication E10.9 [facility] [address] [id number] [address] [place] [address], [place] [id number] Nov, [facility] [address] [id number] [address] [place] [address], [place] [phone] Nov, [facility] [address] [id number] [address] [place] [address], [place] [id number] Nov, Type 1 diabetes mellitus wit hout complication E10.9 [facility] [address] [id number] [address] [place] [address], [place] [id number] Nov, [facility] [address] [id number] [address] [place] [address], [place] [id number] Nov, Type 1 diabetes mellitus wit hout complication E10.9 [facility] [address] [id number] [address] [place] [address], [place] [id number] Nov, [facility] [address] [id number] [address] [place] [address], [place] [id number] Nov, [facility] [address] [id number] [address] [place] [phone] Nov, [facility] [address] [id number] [address] [place] [phone] Nov, Type 1 diabetes mellitus wit hout complication E10.9 ; Acquired hypothyroidism E03.9 ; Gastroesophageal reflux disease without esophagitis K21.9 ; Screening cholesterol level Z13.220 ; Essential hypertension I10 and Khadra onychomycosis B37.2 [facility] [address] [id number] [address] [place] [phone] Oct, Type 1 diabetes mellitus wit hout complication E10.9 [facility] [address] [id number] [address] [place] [phone] Oct, [facility] [address] [id number] [address] [place] [address] Oct, [facility] [address] [id number] [address] [place] [phone] September, [facility] [address] [id number] [address] [place] [phone] Aug, [facility] [address] [id number] [address] [place] [phone] Jul, [facility] [address] [id number] [address] [place] [phone] Jul, [facility] [address] [facility] [id number] [address] [place] [phone] Jul, [facility] [address] [id number] [address] [place] [phone] Jul, [facility] [address] [facility] [id number] [address] [place] [phone] Jul, Type 1 diabetes mellitus wit hout complication E10.9 ; Acquired hypothyroidism E03.9 ; Gastroesophageal reflux disease without esophagitis K21.9 ; Khadra onychomycosis B37.2 and Essential hypertension I10 [facility] [address] [facility] [id number] [address] [place] [phone] 14 Jul, 2016 [facility] [address] [place] [id number] Jul, [facility] [address] [facility] [id number] [address] [place] [phone] Jun, [facility] [address] [facility] [id number] [address] [place] [phone] Jun, Acquired hypothyroidism E03. 9 ; Gastroesophageal reflux disease without esophagitis K21.9 and Type 1 diabetes mellitus without complication E10.9 [place] [address] [facility] [id number] [address] [place] [phone] Jun, [place] [address] [facility] [id number] [address] [place] [address] Jun, [place] [id number] [place] [address] Jun, Type 1 diabetes mellitus wit hout complication E10.9 ; Acquired hypothyroidism E03.9 ; Gastroesophageal reflux disease without esophagitis K21.9 and Screening cholesterol level Z13.220 [place] [address] [facility] [id number] [address] [place] [address] Jun, IMMUNIZATIONS No Known Immunizations SOCIAL HISTORY Never Assessed REASON FOR VISIT Medication PLAN OF CARE VITAL SIGNS MEDICATIONS Medication Instructions Dosage Frequency Start Date End Date Duration S tatus Insulin Syringe-Needle U-100 31G X 1/4 subcutaneously 4 time s a day DX: E10.65 as directed Oct, Active RESULTS No Results PROCEDURES No Known [...]
--- OUTSIDE RECORDS SUMMARY | 2019-05-16 03:02 | XMS REPORT ---
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 Active 868605985 Problem Gastroesophageal reflux disease without esophagitis K21.9 Active 023623651 Problem Acquired hypothyroidism E03.9 Active 951830417 Problem Long-term use of high-risk medication Z79.899 Active 389085213 Problem Essential hypertension I10 Active [id number] ALLERGIES No Information ENCOUNTERS Encounter Location Date Diagnosis [facility] [address] [facility] [id number] [address] [place] [phone] Mar, [facility] [address] [facility] [id number] [address] [place] [phone] Feb, [facility] [address] [facility] [id number] [address] [place] [phone] Feb, Type 1 diabetes mellitus wit h hyperglycemia E10.65 ; Essential hypertension I10 ; Long-term use of high-risk medication Z79.899 ; Vasculogenic erectile dysfunction, unspecified vasculogenic erectile dysfunction type N52.9 and Encounter for immunization Z23 [facility] [address] [facility] [id number] [address] [place] [phone] Feb, Type 2 diabetes mellitus wit h hyperglycemia, unspecified whether snf insulin use E11.65 [facility] [address] [facility] [id number] [address] [place] [phone] Feb, [facility] [address] [facility] [id number] [address] [place] [phone] 08 Feb, 2018 Type 1 diabetes mellitus wit hout complication E10.9 [facility] [address] [facility] [id number] [address] [place] [phone] Feb, [facility] [address] [facility] [id number] [address] [place] [phone] Dec, [facility] [address] [facility] [id number] [address] [place] [address] Dec, Type 2 diabetes mellitus wit h hyperglycemia, unspecified whether snf insulin use E11.65 ; Essential hypertension I10 ; Long-term use of high-risk medication Z79.899 and Vasculogenic erectile dysfunction, unspecified vasculogenic erectile dysfunction type N52.9 [facility] [address] [facility] [id number] [address] [place] [phone] Dec, [facility] [address] [facility] [id number] [address] [place] [phone] Dec, [facility] [address] [facility] [id number] [address] [place] [phone] Oct, Type 1 diabetes mellitus wit hout complication E10.9 [facility] [address] [facility] [id number] [address] [place] [phone] Oct, Gastroesophageal reflux dise ase without esophagitis K21.9 [facility] [address] [facility] [id number] [address] [place] [phone] September, Type 1 diabetes mellitus wit hout complication E10.9 [facility] [address] [id number] [address] [place] [phone] September, [facility] [address] [facility] [id number] [address] [place] [phone] Aug, [facility] [address] [facility] [id number] [address] [place] [phone] Aug, Type 1 diabetes mellitus wit hout complication E10.9 [facility] [address] [facility] [id number] [address] [place] [phone] Jul, Type 1 diabetes mellitus wit hout complication E10.9 [facility] [address] [facility] [id number] [address] [place] [phone] Jul, [facility] [address] [facility] [id number] [address] [place] [phone] Jul, [facility] [address] [facility] [id number] [address] [place] [phone] Jun, [facility] [address] [facility] [id number] [address] [place] [phone] Jun, [facility] [address] [place] [id number] [place] [phone] Jun, Type 1 diabetes mellitus wit hout complication E10.9 [facility] [address] [place] [id number] [address] [place] [phone] May, Type 1 diabetes mellitus wit hout complication E10.9 [facility] [address] [place] [id number] [address] [place] [phone] May, [facility] [address] [phone] May, Type 1 diabetes mellitus wit hout complication E10.9 [facility] [address] [place] [id number] [address] [place] [id number] May, Type 1 diabetes mellitus wit hout complication E10.9 ; Acquired hypothyroidism E03.9 ; Gastroesophageal reflux disease without esophagitis K21.9 ; Essential hypertension I10 ; Long-term use of high-risk medication Z79.899 ; Screening for colon cancer Z12.11 and Frequency of urination R35.0 [facility] [address] [place] [id number] [address] [place] [phone] Apr, [facility] [address] [facility] [id number] [address] [place] [phone] 14 Mar, 2017 [facility] [address] [place] [id number] [place] [phone] Mar, [facility] [address] [id number] [address] [place] [phone] Dec, [facility] [address] [id number] [address] [place] [phone] Dec, [facility] [address] [id number] [address] [place] [phone] Dec, Type 1 diabetes mellitus wit hout complication E10.9 [facility] [address] [id number] [address] [place] [phone] Nov, [facility] [address] [id number] [address] [place] [phone] Nov, [facility] [address] [id number] [address] [place] [phone] Nov, Type 1 diabetes mellitus wit hout complication E10.9 [facility] [address] [id number] [address] [place] [phone] Nov, [facility] [address] [id number] [address] [place] [phone] Nov, Type 1 diabetes mellitus wit hout complication E10.9 [facility] [address] [id number] [address] [place] [phone] Nov, [facility] [address] [id number] [address] [place] [phone] Nov, [facility] [address] [facility] [id number] [address] [place] [phone] Nov, [facility] [address] [facility] [id number] [address] [place] [address] Nov, Type 1 diabetes mellitus wit hout complication E10.9 ; Acquired hypothyroidism E03.9 ; Gastroesophageal reflux disease without esophagitis K21.9 ; Screening cholesterol level Z13.220 ; Essential hypertension I10 and Khadra onychomycosis B37.2 [facility] [address] [id number] [address] [place] [phone] Oct, Type 1 diabetes mellitus wit hout complication E10.9 [facility] [address] [id number] [address] [place] [phone] Oct, [facility] [address] [id number] [address] [place] [phone] Oct, [facility] [address] [id number] [address] [place] [phone] September, [facility] [address] [id number] [address] [place] [phone] Aug, [facility] [address] [id number] [address] [place] [phone] Jul, [facility] [address] [facility] [id number] [address] [place] [phone] Jul, [facility] [address] [facility] [id number] [address] [place] [phone] Jul, [facility] [address] [id number] [address] [place] [phone] Jul, [facility] [address] [facility] [id number] [address] [place] [address] Jul, Type 1 diabetes mellitus wit hout complication E10.9 ; Acquired hypothyroidism E03.9 ; Gastroesophageal reflux disease without esophagitis K21.9 ; Khadra onychomycosis B37.2 and Essential hypertension I10 [facility] [address] [id number] [address] [place] [phone] Jul, [facility] [address] [place] [id number] Jul, [facility] [address] [id number] [address] [place] [phone] Jun, [facility] [address] [facility] [id number] [address] [place] [phone] Jun, Acquired hypothyroidism E03. 9 ; Gastroesophageal reflux disease without esophagitis K21.9 and Type 1 diabetes mellitus without complication E10.9 [facility] [address] [facility] [id number] [address] [place] [phone] Jun, [facility] [address] [facility] [id number] [address] [place] [phone] Jun, [facility] [address] [facility] [id number] [address] [place] [phone] 15 Jun, 2016 Type 1 diabetes mellitus wit hout complication E10.9 ; Acquired hypothyroidism E03.9 ; Gastroesophageal reflux disease without esophagitis K21.9 and Screening cholesterol level Z13.220 [facility] [address] [facility] [id number] [address] [place] [phone] Jun, IMMUNIZATIONS No Known Immunizations SOCIAL HISTORY Never Assessed REASON FOR VISIT Critical Lab PLAN OF CARE VITAL SIGNS MEDICATIONS Unknown [...]
--- OUTSIDE RECORDS SUMMARY | 2019-05-16 03:02 | XMS REPORT ---
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 termite exterminator insulin use E11.65 Active 19145606823 9109 Problem Acquired hypothyroidism E03.9 Active 384035335 Problem Gastroesophageal reflux disease without esophagitis K21.9 Active 810557211 Problem Long-term use of high-risk medication Z79.899 Active 443609054 Problem Essential hypertension I10 Active 75984457 ALLERGIES Substance Reaction Event Type Date Status Codeine Phosphate Unknown Drug Allergy Oct, Active ENCOUNTERS Encounter Location Date Diagnosis [facility] [address] [facility] [id number] [address] [place] [phone] Feb, [facility] [address] [facility] [id number] [address] [place] [phone] Dec, [facility] [address] [facility] [id number] [address] [place] [phone] Dec, Type 2 diabetes mellitus wit h hyperglycemia, unspecified whether termite exterminator insulin use E11.65 ; Essential hypertension I10 ; Long-term use of high-risk medication Z79.899 and Vasculogenic erectile dysfunction, unspecified vasculogenic erectile dysfunction type N52.9 [facility] [address] [facility] [id number] [address] [place] [phone] Dec, [facility] [address] [facility] [id number] [address] [place] [phone] Dec, [facility] [address] [id number] [address] [place] [phone] Oct, Type 1 diabetes mellitus wit hout complication E10.9 [facility] [address] [id number] [address] [place] [phone] Oct, Gastroesophageal reflux dise ase without esophagitis K21.9 [facility] [address] [id number] [address] [place] [id number] September, Type 1 diabetes mellitus wit hout complication E10.9 [facility] [address] [id number] [address] [place] [phone] September, [facility] [address] [id number] [address] [place] [phone] Aug, [facility] [address] [id number] [address] [place] [phone] Aug, Type 1 diabetes mellitus wit hout complication E10.9 [facility] [address] [id number] [address] [place] [id number] Jul, Type 1 diabetes mellitus wit hout complication E10.9 [facility] [address] [id number] [address] [place] [phone] Jul, [facility] [address] [id number] [address] [place] [phone] Jul, [facility] [address] [id number] [address] [place] [phone] Jun, [facility] [address] [id number] [address] [place] [phone] Jun, [facility] [address] [id number] [address] [place] [id number] Jun, Type 1 diabetes mellitus wit hout complication E10.9 [facility] [address] [id number] [address] [place] [phone] May, Type 1 diabetes mellitus wit hout complication E10.9 [facility] [address] [id number] [address] [place] [phone] May, [facility] [address] [id number] [address] [place] [phone] May, Type 1 diabetes mellitus wit hout complication E10.9 [facility] [address] [facility] [id number] [address] [place] [id number] May, Type 1 diabetes mellitus wit hout complication E10.9 ; Acquired hypothyroidism E03.9 ; Gastroesophageal reflux disease without esophagitis K21.9 ; Essential hypertension I10 ; Long-term use of high-risk medication Z79.899 ; Screening for colon cancer Z12.11 and Frequency of urination R35.0 [facility] [address] [id number] [address] [place] [phone] Apr, [facility] [address] [facility] [id number] [address] [place] [phone] Mar, [facility] [address] [facility] [id number] [address] [place] [id number] Mar, [facility] [address] [facility] [id number] [address] [place] [phone] Dec, [facility] [address] [facility] [id number] [address] [place] [phone] Dec, [facility] [address] [facility] [id number] [address] [place] [phone] Dec, Type 1 diabetes mellitus wit hout complication E10.9 [facility] [address] [id number] [address] [place] [phone] Nov, [facility] [address] [id number] [address] [place] [phone] Nov, [facility] [address] [facility] [id number] [address] [place] [phone] Nov, Type 1 diabetes mellitus wit hout complication E10.9 [facility] [address] [facility] [id number] [address] [place] [phone] Nov, [facility] [address] [facility] [id number] [address] [place] [id number] Nov, Type 1 diabetes mellitus wit hout complication E10.9 [facility] [address] [facility] [id number] [address] [place] [id number] Nov, [facility] [address] [facility] [id number] [address] [place] [phone] Nov, [facility] [address] [facility] [id number] [address] [place] [phone] Nov, [facility] [address] [facility] [id number] [address] [place] [id number] Nov, Type 1 diabetes mellitus wit hout complication E10.9 ; Acquired hypothyroidism E03.9 ; Gastroesophageal reflux disease without esophagitis K21.9 ; Screening cholesterol level Z13.220 ; Essential hypertension I10 and Khadra onychomycosis B37.2 [facility] [address] [facility] [id number] [address] [place] [phone] Oct, Type 1 diabetes mellitus wit hout complication E10.9 [facility] [address] [facility] [id number] [address] [place] [id number] Oct, [facility] [address] [facility] [id number] [address] [place] [phone] Oct, [facility] [address] [facility] [id number] [address] [place] [phone] September, [facility] [address] [facility] [id number] [address] [place] [phone] Aug, [facility] [address] [facility] [id number] [address] [place] [phone] Jul, [facility] [address] [facility] [id number] [address] [place] [phone] Jul, [facility] [address] [facility] [id number] [address] [place] [phone] Jul, [facility] [address] [place] [id number] [address] [place] [id number] 15 Jul, 2016 [facility] [address] [facility] [id number] [address] [place] [id number] 15 Jul, 2016 Type 1 diabetes mellitus wit hout complication E10.9 ; Acquired hypothyroidism E03.9 ; Gastroesophageal reflux disease without esophagitis K21.9 ; Khadra onychomycosis B37.2 and Essential hypertension I10 [facility] [address] [place] [id number] [address] [place] [phone] 14 Jul, 2016 [facility] [address] [place] [id number] Jul, [facility] [address] [facility] [id number] [address] [place] [phone] Jun, [facility] [address] [place] [id number] [address] [place] [id number] Jun, Acquired hypothyroidism E03. 9 ; Gastroesophageal reflux disease without esophagitis K21.9 and Type 1 diabetes mellitus without complication E10.9 [facility] [address] [facility] [id number] [address] [place] [id number] Jun, [facility] [address] [place] [id number] [address] [place] [phone] Jun, [facility] [id number] [place] [id number] Jun, Type 1 diabetes mellitus wit hout complication E10.9 ; Acquired hypothyroidism E03.9 ; Gastroesophageal reflux disease without esophagitis K21.9 and Screening cholesterol level Z13.220 [facility] [address] [place] [id number] [address] [place] [phone] Jun, IMMUNIZATIONS No Known Immunizations SOCIAL HISTORY Never Assessed REASON FOR VISIT [facility] Activity Details Follow Up 3 Months with Ashia dominguez: VITAL SIGNS Height 70 in 2017-11-02 Weight 196.8 lbs 2017-11-02 Temperature 98.7 degrees Fahrenheit 2017-11-02 Heart Rate 70 bpm 2017-11-02 Respiratory Rate 18 2017-11-02 Oximetry 99 % 2017-11-02 BMI 28.23 kg/m2 2017-11-02 Blood pressure systolic 136 mmHg 2017-11-02 Blood pressure diastolic 68 mmHg 2017-11-02 MEDICATIONS Medication Instructions Dosage Frequency Start Date End Date Duration S amarilys Levothyroxine Sodium 200 MCG TAKE ONE (1 ) TABLET BY MOUTH ONCE DAILY IN THE MORNING ON AN EMPTY STOMACH 30 Active Protonix 40 mg Orally Once a day 1 capsule 24h 30 Active Tresiba FlexTouch 200 UNIT/ML Subcutaneous at bedtime Inject 14 uni ts May, Active ReliOn Blood Glucose Test - In Vitro 3 times a day as directed 8h Oct, Active NovoLog 100 UNIT/ML Subcutaneous before breakfast and lunch 8 units Active Lisinopril 10 mg Orally Once a day 1 tablet 24h 30 Active ReliOn Prime Test - In Vitro 3 times a day as directed 8h Nov, 017 Active Dex4 Glucose Go-Pouch 15 GM/33GM Orally as needed for hypoglycem ia as directed May, Active Insulin Syringe-Needle U-100 31G X 1/4 subcutaneously 4 times a day as directed 6h Oct, Active RESULTS Name Result Date Reference Range A1C (IN HOUSE) 2017-11-02 A1C IN HOUSE 11.4 4.3 - 5.6 % Previous A1c 8.8 Lot [id number] Exp date 07/2019 PROCEDURES Procedure Date Ordered Result Body Site GLYCATED HEMOGLOBIN TEST November 02, 2017 [facility] VISIT ESTABLISHED PATIENT November 02, 2017 INSTRUCTIONS MEDICATIONS ADMINISTERED No Known Medications [...]
--- OUTSIDE RECORDS SUMMARY | 2019-05-16 03:03 | XMS REPORT ---
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 9 Active 876458168 Problem Essential hypertension I10 Active 11616344 Problem Acquired hypothyroidism E03.9 Active 276743657 ALLERGIES No Information ENCOUNTERS Encounter Location Date Diagnosis [facility] [address] [facility] [id number] [address] [place] [phone] Jan, [facility] [address] [facility] [id number] [address] [place] [phone] Dec, [facility] [address] [facility] [id number] [address] [place] [phone] Dec, Type 1 diabetes mellitus wit hout complication E10.9 ; Essential hypertension I10 ; Long-term use of high-risk medication Z79.899 and Vasculogenic erectile dysfunction, unspecified vasculogenic erectile dysfunction type N52.9 [facility] [address] [facility] [id number] [address] [place] [phone] Dec, [facility] [address] [facility] [id number] [address] [place] [id number] Dec, [facility] [address] [facility] [id number] [address] [place] [phone] Oct, Type 1 diabetes mellitus wit hout complication E10.9 [facility] [address] [id number] [address] [place] [phone] Oct, Gastroesophageal reflux dise ase without esophagitis K21.9 [facility] [address] [id number] [address] [place] [phone] September, Type 1 diabetes mellitus wit hout complication E10.9 [facility] [address] [id number] [address] [place] [phone] September, [facility] [address] [id number] [address] [place] [phone] Aug, [facility] [address] [id number] [address] [place] [phone] Aug, Type 1 diabetes mellitus wit hout complication E10.9 [facility] [address] [id number] [address] [place] [id number] Jul, Type 1 diabetes mellitus wit hout complication E10.9 [facility] [address] [id number] [address] [place] [phone] Jul, [facility] [address] [id number] [address] [place] [phone] Jul, [facility] [address] [id number] [address] [place] [phone] Jun, [facility] [address] [id number] [address] [place] [phone] Jun, [facility] [address] [id number] [address] [place] [phone] Jun, Type 1 diabetes mellitus wit hout complication E10.9 [facility] [address] [id number] [address] [place] [phone] May, Type 1 diabetes mellitus wit hout complication E10.9 [facility] [address] [id number] [address] [place] [id number] May, [facility] [address] [id number] [address] [place] [phone] May, Type 1 diabetes mellitus wit hout complication E10.9 [facility] [address] [id number] [address] [place] [phone] May, Type 1 diabetes mellitus wit hout complication E10.9 ; Acquired hypothyroidism E03.9 ; Gastroesophageal reflux disease without esophagitis K21.9 ; Essential hypertension I10 ; Long-term use of high-risk medication Z79.899 ; Screening for colon cancer Z12.11 and Frequency of urination R35.0 [facility] [address] [id number] [address] [place] [phone] Apr, [facility] [address] [id number] [address] [place] [phone] Mar, [facility] [address] [facility] [id number] [address] [place] [id number] Mar, [facility] [address] [facility] [id number] [address] [place] [phone] Dec, [facility] [address] [id number] [address] [place] [phone] Dec, [facility] [address] [facility] [id number] [address] [place] [phone] Dec, Type 1 diabetes mellitus wit hout complication E10.9 [facility] [address] [facility] [id number] [address] [place] [phone] Nov, [facility] [address] [id number] [address] [place] [phone] Nov, [facility] [address] [id number] [address] [place] [id number] Nov, Type 1 diabetes mellitus wit hout complication E10.9 [facility] [address] [id number] [address] [place] [phone] Nov, [facility] [address] [facility] [id number] [address] [place] [phone] Nov, Type 1 diabetes mellitus wit hout complication E10.9 [facility] [address] [id number] [address] [place] [phone] Nov, [facility] [address] [facility] [id number] [address] [place] [phone] Nov, [facility] [address] [facility] [id number] [address] [place] [phone] Nov, [facility] [address] [id number] [address] [place] [phone] Nov, Type 1 diabetes mellitus wit hout complication E10.9 ; Acquired hypothyroidism E03.9 ; Gastroesophageal reflux disease without esophagitis K21.9 ; Screening cholesterol level Z13.220 ; Essential hypertension I10 and Khadra onychomycosis B37.2 [facility] [address] [id number] [address] [place] [phone] Oct, Type 1 diabetes mellitus wit hout complication E10.9 [facility] [address] [id number] [address] [place] [phone] Oct, [facility] [address] [id number] [address] [place] [phone] Oct, [facility] [address] [id number] [address] [place] [id number] September, [facility] [address] [id number] [address] [place] [phone] Aug, [facility] [address] [id number] [address] [place] [phone] Jul, [facility] [address] [id number] [address] [place] [phone] Jul, [facility] [address] [id number] [address] [place] [phone] Jul, [facility] [address] [id number] [address] [place] [id number] Jul, [facility] [address] [facility] [id number] [address] [place] [id number] Jul, Type 1 diabetes mellitus wit hout complication E10.9 ; Acquired hypothyroidism E03.9 ; Gastroesophageal reflux disease without esophagitis K21.9 ; Khadra onychomycosis B37.2 and Essential hypertension I10 [facility] [address] [facility] [id number] [address] [place] [phone] 14 Jul, 2016 [facility] [address] [place] [id number] Jul, [facility] [address] [facility] [id number] [address] [place] [id number] Jun, [facility] [address] [facility] [id number] [address] [place] [phone] Jun, Acquired hypothyroidism E03. 9 ; Gastroesophageal reflux disease without esophagitis K21.9 and Type 1 diabetes mellitus without complication E10.9 [place] [address] [facility] [id number] [address] [place] [phone] Jun, [facility] [address] [facility] [id number] [address] [place] [phone] Jun, [facility] [address] [place] [id number] [address] [place] [phone] Jun, Type 1 diabetes mellitus wit hout complication E10.9 ; Acquired hypothyroidism E03.9 ; Gastroesophageal reflux disease without esophagitis K21.9 and Screening cholesterol level Z13.220 [place] [address] [facility] [id number] [address] [place] [phone] Jun, IMMUNIZATIONS No Known Immunizations SOCIAL HISTORY Never Assessed REASON FOR VISIT Insulin Pump [employer] PLAN OF CARE VITAL SIGNS MEDICATIONS Unknown [...]
--- OUTSIDE RECORDS SUMMARY | 2019-05-16 03:03 | XMS REPORT ---
Author Author Ignacio TURNER Organization [facility] Address [address] [place] [address] Care Team Providers Care Oil Field Roustabout Name Role Phone MICHAELA TURNER Unavailable PROBLEMS Type Condition ICD9-CM Code [id number] Code Onset Dates Condition S tatus SNOMED Code Problem Essential hypertension I10 Active 82514705 Problem Gastroesophageal reflux disease without esophagitis K21.9 Active 981391507 Problem Acquired hypothyroidism E03.9 Active 840673777 Problem Type 1 diabetes mellitus without complication E10. 9 Active 641329145 Problem Screening cholesterol level Z13.220 Ac tive 901693684 ALLERGIES No Information SOCIAL HISTORY Never Assessed PLAN OF CARE VITAL SIGNS MEDICATIONS Unknown Medications RESULTS No Results PROCEDURES No Known procedures IMMUNIZATIONS No Known Immunizations MEDICAL (GENERAL) HISTORY Type Description Date Medical History thyroid disorder Medical History type I diabetes Medical History acid reflux Medical History spinal menningitis Surgical History appendectomy 2016 Surgical History hernia repair at age 14 Hospitalization History Surgery(s) only Hospitalization History spinal menningitis
--- OUTSIDE RECORDS SUMMARY | 2019-05-16 03:03 | XMS REPORT ---
Author Author Ignacio TURNER Organization [facility] Address [address] [place] [address] Care Team Providers Care Jersey Knitter Name Role Phone MICHAELA TURNER Unavailable PROBLEMS Type Condition ICD9-CM Code [id number] Code Onset Dates Condition S tatus SNOMED Code Problem Essential hypertension I10 Active 16564153 Problem Gastroesophageal reflux disease without esophagitis K21.9 Active 466243491 Problem Acquired hypothyroidism E03.9 Active 889646655 Problem Type 1 diabetes mellitus without complication E10. 9 Active 828667026 Problem Screening cholesterol level Z13.220 Ac tive 981895897 ALLERGIES No Information SOCIAL HISTORY Never Assessed [...]
--- OUTSIDE RECORDS SUMMARY | 2019-05-16 03:03 | XMS REPORT ---
Author Author Ignacio TURNER Organization [facility] Address [address] [place] [address] Care Team Providers Care Drier Feeder Name Role Phone MICHAELA TURNER Unavailable PROBLEMS Type Condition ICD9-CM Code DEL85-BI Code Onset Dates Condition S tatus SNOMED Code Problem Essential hypertension I10 Active 33274314 Problem Gastroesophageal reflux disease without esophagitis K21.9 Active 442757628 Problem Acquired hypothyroidism E03.9 Active 969904341 Problem Type 1 diabetes mellitus without complication E10. 9 Active 789589308 Problem Screening cholesterol level Z13.220 Ac tive 341208072 ALLERGIES No Information SOCIAL HISTORY Never Assessed [...]
--- OUTSIDE RECORDS SUMMARY | 2019-05-16 03:03 | XMS REPORT ---
Author Author Ignacio TURNER Organization [facility] Address [address] [place] [address] Care Team Providers Care Hand Compositor Name Role Phone DIANA TURNERE Unavailable PROBLEMS Type Condition ICD9-CM Code [id number] Code Onset Dates Condition S tatus SNOMED Code Problem Essential hypertension I10 Active 13311846 Problem Gastroesophageal reflux disease without esophagitis K21.9 Active 776252839 Problem Acquired hypothyroidism E03.9 Active 591157043 Problem Type 1 diabetes mellitus without complication E10. 9 Active 100152339 Problem Screening cholesterol level Z13.220 Ac tive [id number] ALLERGIES No Information SOCIAL HISTORY Never Assessed PLAN OF CARE VITAL SIGNS MEDICATIONS Unknown Medications RESULTS Name Result Date Reference Range C-PEPTIDE, SERUM 2016-07-14 Request Problem C-Peptide, Serum TSH W/ FREE T4 2016-07-14 Request Problem TSH T4,Free(Direct) CBC 2016-07-14 Please note WBC RBC Hemoglobin Hematocrit MCV MCH MCHC RDW Platelets NRBC Neutrophils Lymphs Monocytes Eos Basos Immature Granulocytes Neutrophils (Absolute) Lymphs (Absolute) Monocytes(Absolute) Eos (Absolute) Baso (Absolute) Immature Grans (Abs) Immature Cells Bands Blasts/blast like cells Megakaryocytes Metamyelocytes Myelocytes Other, Lineage Uncertain Promyelocytes Hematology Comments: Request Problem Request Problem CMP 2016-07-14 Request Problem NTI Urine Tube ([place]) Rajwinder Cabrales CMP14 Default Request Problem Request Problem Sodium, Serum Potassium, Serum Chloride, Serum Carbon Dioxide, Total BUN Creatinine, Serum eGFR If NonAfricn Am eGFR If Africn Am BUN/Creatinine Ratio Glucose, Serum Calcium, Serum Bilirubin, Total AST (SGOT) ALT (SGPT) Alkaline Phosphatase, S Protein, Total, Serum Albumin, Serum Globulin, Total A/G Ratio Specimen Identification Status Please note PROCEDURES Procedure Date Ordered Result Body Site LAB NOT BILLED BY [facility] Jul 08, 2016 IMMUNIZATIONS No Known Immunizations MEDICAL (GENERAL) HISTORY Type Description Date Medical History thyroid disorder Medical History type I diabetes Medical History acid reflux Medical History spinal menningitis Surgical History appendectomy 2016 Surgical History hernia repair at age 14 Hospitalization History Surgery(s) only Hospitalization History spinal menningitis
--- OUTSIDE RECORDS SUMMARY | 2019-05-16 03:03 | XMS REPORT ---
Author Author Ignacio TURNER Organization [facility] Address [address] [place] [address] Care Team Providers Care Volunteer Fire Fighter Name Role Phone TURNERSILVERMICHAELA Unavailable PROBLEMS Type Condition ICD9-CM Code ATS36-JN Code Onset Dates Condition S tatus SNOMED Code Problem Essential hypertension I10 Active 46623062 Problem Gastroesophageal reflux disease without esophagitis K21.9 Active 553514656 Problem Acquired hypothyroidism E03.9 Active 773293502 Problem Type 1 diabetes mellitus without complication E10. 9 Active 852765394 Problem Screening cholesterol level Z13.220 Ac tive 955300814 ALLERGIES Substance Reaction Event Type Date Status Codeine Phosphate Unknown Drug Allergy Jun, Active SOCIAL HISTORY Never Assessed PLAN OF CARE Activity Details Follow Up 4 Weeks Reason:diabetes VITAL SIGNS Height 70 in 2016-06-30 Weight 206 lbs 2016-06-30 Temperature 98.0 degrees Fahrenheit 2016-06-30 Heart Rate 78 bpm 2016-06-30 Respiratory Rate 24 2016-06-30 BMI 29.55 kg/m2 2016-06-30 Blood pressure systolic 150 mmHg 2016-06-30 Blood pressure diastolic 78 mmHg 2016-06-30 MEDICATIONS Medication Instructions Dosage Frequency Start Date End Date Duration S tatus Novolin R 100 UNIT/ML Injection 3 times a day sliding scale 8h Active Ranitidine HCl 150 MG Orally twice a day 1 capsule 12h Active Levothyroxine Sodium 200 MCG Orally Once a day 1 tablet on an empty stomach in the morning 24h Active BD Insulin Syringe 25G X 5/8" 1 ML subcutaneously 3 times a day sliding scale 8h Jun, Active RESULTS Name Result Date Reference Range A1C (IN HOUSE) 2016-06-30 A1C IN HOUSE 9.8 4.3 - 5.6 % Previous A1c None Available Lot [id number] Exp date PROCEDURES Procedure Date Ordered Result Body Site GLYCATED HEMOGLOBIN TEST Jun 30, 2016 [facility] NEW PATIENT Jun 30, 2016 IMMUNIZATIONS No Known Immunizations MEDICAL (GENERAL) HISTORY Type Description Date Medical History thyroid disorder Medical History type I diabetes Medical History acid reflux Medical History spinal menningitis Surgical History appendectomy 2016 Surgical History hernia repair at age 14 Hospitalization History Surgery(s) only Hospitalization History spinal menningitis
--- OUTSIDE RECORDS SUMMARY | 2019-05-16 03:03 | XMS REPORT ---
Author Author gInacio CANAS Organization [facility] Address [address] [place] [address] Care Team Providers Care Track Service Worker Name Role Phone GONZÁLEZBlaine ELVIS Unavailable PROBLEMS Type Condition ICD9-CM Code EBH95-VH Code Onset Dates Condition S tatus SNOMED Code Problem Long-term use of high-risk medication Z79.899 Active 380392009 Problem Essential hypertension I10 Active 20836082 Problem Type 1 diabetes mellitus without complication E10. 9 Active 443330152 Problem Acquired hypothyroidism E03.9 Active 005190562 Problem Gastroesophageal reflux disease without esophagitis K21.9 Active 575569265 ALLERGIES No Information ENCOUNTERS Encounter Location Date Diagnosis [facility] [address] [facility] [id number] [address] [place] [phone] Dec, [facility] [address] [facility] [id number] [address] [place] [phone] Oct, Type 1 diabetes mellitus wit hout complication E10.9 [facility] [address] [facility] [id number] [address] [place] [address] Oct, Gastroesophageal reflux dise ase without esophagitis K21.9 [facility] [address] [facility] [id number] [address] [place] [phone] September, Type 1 diabetes mellitus wit hout complication E10.9 [facility] [address] [facility] [id number] [address] [place] [phone] September, [facility] [address] [facility] [id number] [address] [place] [phone] Aug, [facility] [address] [facility] [id number] [address] [place] [address] Aug, Type 1 diabetes mellitus wit hout complication E10.9 [place] [address] [facility] [id number] [address] [place] [address] Jul, Type 1 diabetes mellitus wit hout complication E10.9 [facility] [address] [facility] [id number] [address] [place] [phone] Jul, [facility] [address] [facility] [id number] [address] [place] [phone] Jul, [facility] [address] [facility] [id number] [address] [place] [phone] Jun, [facility] [address] [facility] [id number] [address] [place] [phone] Jun, [facility] [address] [place] [id number] [place] [phone] Jun, Type 1 diabetes mellitus wit hout complication E10.9 [facility] [address] [phone] May, Type 1 diabetes mellitus wit hout complication E10.9 [facility] [address] [place] [id number] [address] [place] [phone] May, [facility] [address] [place] [id number] [address] [place] [address] May, Type 1 diabetes mellitus wit hout complication E10.9 [facility] [address] [place] [id number] [address] [place] [address] May, Type 1 diabetes mellitus wit hout complication E10.9 ; Acquired hypothyroidism E03.9 ; Gastroesophageal reflux disease without esophagitis K21.9 ; Essential hypertension I10 ; Long-term use of high-risk medication Z79.899 ; Screening for colon cancer Z12.11 and Frequency of urination R35.0 [facility] [address] [place] [id number] [address] [place] [phone] Apr, [facility] [address] [place] [id number] [address] [place] [phone] Mar, [facility] [address] [id number] [address] [place] [phone] Mar, [facility] [address] [id number] [address] [place] [phone] Dec, [facility] [address] [id number] [address] [place] [phone] Dec, [facility] [address] [id number] [address] [place] [address] Dec, Type 1 diabetes mellitus wit hout complication E10.9 [facility] [address] [id number] [address] [place] [address], [place] [address] Nov, [facility] [address] [id number] [address] [place] [phone] Nov, [facility] [address] [id number] [address] [place] [phone] Nov, Type 1 diabetes mellitus wit hout complication E10.9 [facility] [address] [id number] [address] [place] [phone] Nov, [facility] [address] [id number] [address] [place] [phone] Nov, Type 1 diabetes mellitus wit hout complication E10.9 [facility] [address] [id number] [address] [place] [phone] Nov, [facility] [address] [id number] [address] [place] [phone] Nov, [facility] [address] [id number] [address] [place] [phone] Nov, [facility] [address] [id number] [address] [place] [phone] Nov, Type 1 diabetes mellitus wit hout complication E10.9 ; Acquired hypothyroidism E03.9 ; Gastroesophageal reflux disease without esophagitis K21.9 ; Screening cholesterol level Z13.220 ; Essential hypertension I10 and Khadra onychomycosis B37.2 [facility] [address] [id number] [address] [place] [phone] 28 Oct, 2016 Type 1 diabetes mellitus wit hout complication E10.9 [facility] [address] [id number] [address] [place] [phone] 19 Oct, 2016 [facility] [address] [facility] [id number] [address] [place] [phone] 05 Oct, 2016 [facility] [address] [id number] [address] [place] [phone] September, [facility] [address] [id number] [address] [place] [phone] Aug, [facility] [address] [id number] [address] [place] [phone] Jul, [facility] [address] [id number] [address] [place] [phone] Jul, [facility] [address] [id number] [address] [place] [phone] Jul, [facility] [address] [id number] [address] [place] [phone] Jul, [facility] [address] [facility] [id number] [address] [place] [phone] Jul, Type 1 diabetes mellitus wit hout complication E10.9 ; Acquired hypothyroidism E03.9 ; Gastroesophageal reflux disease without esophagitis K21.9 ; Khadra onychomycosis B37.2 and Essential hypertension I10 [facility] [address] [id number] [address] [place] [phone] 14 Jul, [facility] [address] [place] [id number] Jul, [facility] [address] [id number] [address] [place] [phone] Jun, [facility] [address] [facility] [id number] [address] [place] [phone] Jun, Acquired hypothyroidism E03. 9 ; Gastroesophageal reflux disease without esophagitis K21.9 and Type 1 diabetes mellitus without complication E10.9 [facility] [address] [facility] [id number] [address] [place] [phone] Jun, [facility] [address] [facility] [id number] [address] [place] [phone] Jun, [place] [address] [facility] [id number] [address] [place] [phone] Jun, Type 1 diabetes mellitus wit hout complication E10.9 ; Acquired hypothyroidism E03.9 ; Gastroesophageal reflux disease without esophagitis K21.9 and Screening cholesterol level Z13.220 [place] [address] [facility] [id number] [address] [place] [phone] Jun, IMMUNIZATIONS No Known Immunizations SOCIAL HISTORY Never Assessed REASON FOR VISIT insulin pump paperwork sent PLAN OF CARE VITAL SIGNS MEDICATIONS Unknown [...]
--- OUTSIDE RECORDS SUMMARY | 2019-05-16 03:03 | XMS REPORT ---
Author Author Ignacio Cisneros Organization [facility] Address [address] [place] [address] Care Team Providers Care Chute Tapper Name Role Phone MICHAELA Cisneros Unavailable PROBLEMS Type Condition ICD9-CM Code WRM09-PZ Code Onset Dates Condition S tatus SNOMED Code Problem Long-term use of high-risk medication Z79.899 Active 823474456 Problem Essential hypertension I10 Active 35544145 Problem Type 1 diabetes mellitus without complication E10. 9 Active 963295957 Problem Acquired hypothyroidism E03.9 Active 080468311 Problem Gastroesophageal reflux disease without esophagitis K21.9 Active 913644356 ALLERGIES No Information ENCOUNTERS Encounter Location Date Diagnosis [facility] [address] [facility] [id number] [address] [place] [phone] Aug, [facility] [address] [facility] [id number] [address] [place] [phone] Jul, Type 1 diabetes mellitus wit hout complication E10.9 [facility] [address] [facility] [id number] [address] [place] [phone] Jul, [facility] [address] [facility] [id number] [address] [place] [phone] Jul, [facility] [address] [facility] [id number] [address] [place] [phone] Jun, [facility] [address] [facility] [id number] [address] [place] [phone] Jun, [facility] [address] [facility] [id number] [address] [place] [phone] Jun, Type 1 diabetes mellitus wit hout complication E10.9 [facility] [address] [place] [id number] [address] [place] [phone] May, Type 1 diabetes mellitus wit hout complication E10.9 [facility] [address] [facility] [id number] [address] [place] [phone] May, [facility] [address] [facility] [id number] [address] [place] [phone] May, Type 1 diabetes mellitus wit hout complication E10.9 [facility] [address] [facility] [id number] [address] [place] [phone] May, Type 1 diabetes mellitus wit hout complication E10.9 ; Acquired hypothyroidism E03.9 ; Gastroesophageal reflux disease without esophagitis K21.9 ; Essential hypertension I10 ; Long-term use of high-risk medication Z79.899 ; Screening for colon cancer Z12.11 and Frequency of urination R35.0 [facility] [address] [facility] [id number] [address] [place] [phone] Apr, [facility] [address] [facility] [id number] [address] [place] [phone] Mar, [facility] [address] [facility] [id number] [address] [place] [phone] Mar, [facility] [address] [facility] [id number] [address] [place] [phone] Dec, [facility] [address] [facility] [id number] [address] [place] [phone] Dec, [facility] [address] [facility] [id number] [address] [place] [phone] Dec, Type 1 diabetes mellitus wit hout complication E10.9 [facility] [address] [facility] [id number] [address] [place] [phone] Nov, [facility] [address] [facility] [id number] [address] [place] [phone] Nov, [facility] [address] [facility] [id number] [address] [place] [phone] Nov, Type 1 diabetes mellitus wit hout complication E10.9 [facility] [address] [id number] [address] [place] [phone] Nov, [facility] [address] [id number] [address] [place] [phone] Nov, Type 1 diabetes mellitus wit hout complication E10.9 [facility] [address] [facility] [id number] [address] [place] [phone] Nov, [facility] [address] [id number] [address] [place] [phone] Nov, [facility] [address] [facility] [id number] [address] [place] [phone] Nov, [facility] [address] [facility] [id number] [address] [place] [phone] Nov, Type 1 diabetes mellitus wit hout complication E10.9 ; Acquired hypothyroidism E03.9 ; Gastroesophageal reflux disease without esophagitis K21.9 ; Screening cholesterol level Z13.220 ; Essential hypertension I10 and Khadra onychomycosis B37.2 [facility] [address] [id number] [address] [place] [phone] Oct, Type 1 diabetes mellitus wit hout complication E10.9 [facility] [address] [facility] [id number] [address] [place] [phone] Oct, [facility] [address] [facility] [id number] [address] [place] [phone] Oct, [facility] [address] [id number] [address] [place] [phone] September, [facility] [address] [facility] [id number] [address] [place] [phone] Aug, [facility] [address] [facility] [id number] [address] [place] [phone] Jul, [facility] [address] [facility] [id number] [address] [place] [phone] Jul, [place] [address] [facility] [id number] [address] [place] [phone] Jul, [place] [address] [place] [id number] [address] [place] [phone] Jul, [place] [address] [place] [id number] [address] [place] [phone] Jul, Type 1 diabetes mellitus wit hout complication E10.9 ; Acquired hypothyroidism E03.9 ; Gastroesophageal reflux disease without esophagitis K21.9 ; Khadra onychomycosis B37.2 and Essential hypertension I10 [place] [address] [place] [id number] [address] [place] [phone] 14 Jul, [facility] [address] [place] [id number] Jul, [place] [id number] [place] [phone] Jun, [place] [id number] [place] [phone] Jun, Acquired hypothyroidism E03. 9 ; Gastroesophageal reflux disease without esophagitis K21.9 and Type 1 diabetes mellitus without complication E10.9 [place] [address] [place] [id number] [address] [place] [phone] Jun, [place] [address] [place] [phone] Jun, [place] [address] [place] [id number] [address] [place] [phone] Jun, Type 1 diabetes mellitus wit hout complication E10.9 ; Acquired hypothyroidism E03.9 ; Gastroesophageal reflux disease without esophagitis K21.9 and Screening cholesterol level Z13.220 [place] [address] [place] [id number] [address] [place] [phone] 13 Jun, 2016 IMMUNIZATIONS No Known Immunizations SOCIAL HISTORY Never Assessed REASON FOR VISIT Refill request PLAN OF CARE VITAL SIGNS MEDICATIONS Medication Instructions Dosage Frequency Start Date End Date Duration S tatus ReliOn Blood Glucose Test - In Vitro 3 times a day as directed 8h Oct, 30 days Active RESULTS No Results PROCEDURES No Known procedures INSTRUCTIONS MEDICATIONS ADMINISTERED No Known Medications MEDICAL (GENERAL) HISTORY Type Description Date Medical History Hypothyroidism Medical History type I diabetes Medical History GERD Medical History spinal menningitis Medical History HTN - BP goes down if off the Lisnopril Medical History Never had EGD or Colonoscopy- Surgical History appendectomy 2016 Surgical History hernia repair at age 14 Hospitalization History Surgery(s) only Hospitalization History spinal menningitis
--- OUTSIDE RECORDS SUMMARY | 2019-05-16 03:03 | XMS REPORT ---
Author Author Ignacio CANAS Organization [facility] Address [address] [place] [address] Care Team Providers Care Marine Photographer Name Role Phone GONZÁLEZBlaine ELVIS Unavailable PROBLEMS Type Condition ICD9-CM Code MEK14-LB Code Onset Dates Condition S tatus SNOMED Code Problem Long-term use of high-risk medication Z79.899 Active 439913738 Problem Essential hypertension I10 Active 84128641 Problem Type 1 diabetes mellitus without complication E10. 9 Active 513459629 Problem Acquired hypothyroidism E03.9 Active 986798971 Problem Gastroesophageal reflux disease without esophagitis K21.9 Active 604150543 ALLERGIES No Information ENCOUNTERS Encounter Location Date Diagnosis [facility] [address] [facility] [id number] [address] [place] [phone] Dec, [facility] [address] [facility] [id number] [address] [place] [phone] Oct, Type 1 diabetes mellitus wit hout complication E10.9 [facility] [address] [facility] [id number] [address] [place] [phone] Oct, Gastroesophageal reflux dise ase without esophagitis K21.9 [facility] [address] [facility] [id number] [address] [place] [phone] September, Type 1 diabetes mellitus wit hout complication E10.9 [facility] [address] [facility] [id number] [address] [place] [phone] September, [facility] [address] [facility] [id number] [address] [place] [phone] Aug, [facility] [address] [facility] [id number] [address] [place] [phone] Aug, Type 1 diabetes mellitus wit hout complication E10.9 [place] [id number] [facility] [id number] [address] [place] [phone] Jul, Type 1 diabetes mellitus wit hout complication E10.9 [facility] [address] [facility] [id number] [address] [place] [phone] Jul, [facility] [address] [facility] [id number] [address] [place] [address] Jul, [facility] [address] [facility] [id number] [address] [place] [phone] Jun, [facility] [address] [facility] [id number] [address] [place] [phone] Jun, [facility] [address] [place] [id number] [place] [phone] Jun, Type 1 diabetes mellitus wit hout complication E10.9 [facility] [address] [address] May, Type 1 diabetes mellitus wit hout complication E10.9 [facility] [address] [place] [id number] [address] [place] [phone] May, [facility] [address] [place] [id number] [address] [place] [phone] May, Type 1 diabetes mellitus wit hout complication E10.9 [facility] [address] [place] [id number] [address] [place] [address] May, Type 1 diabetes mellitus wit hout complication E10.9 ; Acquired hypothyroidism E03.9 ; Gastroesophageal reflux disease without esophagitis K21.9 ; Essential hypertension I10 ; Long-term use of high-risk medication Z79.899 ; Screening for colon cancer Z12.11 and Frequency of urination R35.0 [facility] [address] [place] [id number] [address] [place] [phone] Apr, [facility] [address] [place] [id number] [address] [place] [phone] Mar, [facility] [address] [id number] [address] [place] [phone] Mar, [facility] [address] [id number] [address] [place] [phone] Dec, [facility] [address] [id number] [address] [place] [phone] Dec, [facility] [address] [id number] [address] [place] [address] Dec, Type 1 diabetes mellitus wit hout complication E10.9 [facility] [address] [id number] [address] [place] [address], [place] [address] Nov, [facility] [address] [id number] [address] [place] [address] Nov, [facility] [address] [id number] [address] [place] [address] Nov, Type 1 diabetes mellitus wit hout complication E10.9 [facility] [address] [id number] [address] [place] [address] Nov, [facility] [address] [id number] [address] [place] [phone] Nov, Type 1 diabetes mellitus wit hout complication E10.9 [facility] [address] [id number] [address] [place] [address] Nov, [facility] [address] [id number] [address] [place] [address] Nov, [facility] [address] [id number] [address] [place] [address] Nov, [facility] [address] [id number] [address] [place] [address] Nov, Type 1 diabetes mellitus wit hout complication E10.9 ; Acquired hypothyroidism E03.9 ; Gastroesophageal reflux disease without esophagitis K21.9 ; Screening cholesterol level Z13.220 ; Essential hypertension I10 and Khadra onychomycosis B37.2 [facility] [address] [id number] [address] [place] [phone] 28 Oct, 2016 Type 1 diabetes mellitus wit hout complication E10.9 [facility] [address] [id number] [address] [place] [phone] 19 Oct, 2016 [facility] [address] [facility] [id number] [address] [place] [phone] 05 Oct, 2016 [facility] [address] [id number] [address] [place] [address] September, [facility] [address] [id number] [address] [place] [address] Aug, [facility] [address] [id number] [address] [place] [phone] Jul, [facility] [address] [id number] [address] [place] [phone] Jul, [facility] [address] [id number] [address] [place] [phone] Jul, [facility] [address] [id number] [address] [place] [address] Jul, [facility] [address] [facility] [id number] [address] [place] [address] Jul, Type 1 diabetes mellitus wit hout complication E10.9 ; Acquired hypothyroidism E03.9 ; Gastroesophageal reflux disease without esophagitis K21.9 ; Khadra onychomycosis B37.2 and Essential hypertension I10 [facility] [address] [id number] [address] [place] [phone] 14 Jul, [facility] [address] [place] [id number] Jul, [facility] [address] [id number] [address] [place] [phone] Jun, [facility] [address] [facility] [id number] [address] [place] [address] Jun, Acquired hypothyroidism E03. 9 ; Gastroesophageal reflux disease without esophagitis K21.9 and Type 1 diabetes mellitus without complication E10.9 [facility] [address] [facility] [id number] [address] [place] [phone] Jun, [facility] [address] [facility] [id number] [address] [place] [phone] 20 Jun, 2016 [place] [address] [facility] [id number] [address] [place] [address] Jun, Type 1 diabetes mellitus wit hout complication E10.9 ; Acquired hypothyroidism E03.9 ; Gastroesophageal reflux disease without esophagitis K21.9 and Screening cholesterol level Z13.220 [place] [address] [facility] [id number] [address] [place] [address] Jun, IMMUNIZATIONS No Known Immunizations SOCIAL HISTORY Never Assessed REASON FOR VISIT BS f/u attempt PLAN OF CARE VITAL SIGNS MEDICATIONS Medication Instructions Dosage Frequency Start Date End Date Duration S tatus Tresiba FlexTouch 200 UNIT/ML Subcutaneous at bedtime Inject 12 uni ts May, Active NovoLog 100 UNIT/ML Subcutaneous before breakfast and lunch 8 units Active RESULTS No Results PROCEDURES No Known [...]
--- OUTSIDE RECORDS SUMMARY | 2019-05-16 03:03 | XMS REPORT ---
Author Author Ignacio CANAS Organization [facility] Address [address] [place] [address] Care Team Providers Care Small Parts Assembler Name Role Phone GONZÁLEZBlaine ELVIS Unavailable PROBLEMS Type Condition ICD9-CM Code WPB73-IN Code Onset Dates Condition S tatus SNOMED Code Problem Long-term use of high-risk medication Z79.899 Active 523723066 Problem Essential hypertension I10 Active 91483467 Problem Type 1 diabetes mellitus without complication E10. 9 Active 780333738 Problem Acquired hypothyroidism E03.9 Active 812126385 Problem Gastroesophageal reflux disease without esophagitis K21.9 Active 473324605 ALLERGIES No Information ENCOUNTERS Encounter Location Date Diagnosis [facility] [address] [facility] [id number] [address] [place] [phone] Dec, [facility] [address] [facility] [id number] [address] [place] [phone] Oct, Type 1 diabetes mellitus wit hout complication E10.9 [facility] [address] [facility] [id number] [address] [place] [phone] Oct, Gastroesophageal reflux dise ase without esophagitis K21.9 [facility] [address] [facility] [id number] [address] [place] [phone] September, Type 1 diabetes mellitus wit hout complication E10.9 [facility] [address] [facility] [id number] [address] [place] [phone] September, [facility] [address] [facility] [id number] [address] [place] [phone] Aug, [facility] [address] [facility] [id number] [address] [place] [phone] Aug, Type 1 diabetes mellitus wit hout complication E10.9 [place] [id number] [facility] [id number] [address] [place] [phone] Jul, Type 1 diabetes mellitus wit hout complication E10.9 [facility] [address] [facility] [id number] [address] [place] [phone] Jul, [facility] [address] [facility] [id number] [address] [place] [phone] Jul, [facility] [address] [facility] [id number] [address] [place] [phone] Jun, [facility] [address] [facility] [id number] [address] [place] [phone] Jun, [facility] [address] [place] [id number] [place] [address] Jun, Type 1 diabetes mellitus wit hout complication E10.9 [facility] [address] [phone] May, Type 1 diabetes mellitus wit hout complication E10.9 [facility] [address] [place] [id number] [address] [place] [phone] May, [facility] [address] [place] [id number] [address] [place] [phone] May, Type 1 diabetes mellitus wit hout complication E10.9 [facility] [address] [place] [id number] [address] [place] [phone] May, Type 1 diabetes mellitus wit hout complication E10.9 ; Acquired hypothyroidism E03.9 ; Gastroesophageal reflux disease without esophagitis K21.9 ; Essential hypertension I10 ; Long-term use of high-risk medication Z79.899 ; Screening for colon cancer Z12.11 and Frequency of urination R35.0 [facility] [address] [place] [id number] [address] [place] [phone] Apr, [facility] [address] [place] [id number] [address] [place] [phone] Mar, [facility] [address] [id number] [address] [place] [phone] Mar, [facility] [address] [id number] [address] [place] [phone] Dec, [facility] [address] [id number] [address] [place] [phone] Dec, [facility] [address] [id number] [address] [place] [phone] Dec, Type 1 diabetes mellitus wit hout complication E10.9 [facility] [address] [id number] [address] [place] [address], [place] [address] Nov, [facility] [address] [id number] [address] [place] [phone] Nov, [facility] [address] [id number] [address] [place] [phone] Nov, Type 1 diabetes mellitus wit hout complication E10.9 [facility] [address] [id number] [address] [place] [phone] Nov, [facility] [address] [id number] [address] [place] [phone] Nov, Type 1 diabetes mellitus wit hout complication E10.9 [facility] [address] [id number] [address] [place] [phone] Nov, [facility] [address] [id number] [address] [place] [phone] Nov, [facility] [address] [id number] [address] [place] [phone] Nov, [facility] [address] [id number] [address] [place] [phone] Nov, Type 1 diabetes mellitus wit hout complication E10.9 ; Acquired hypothyroidism E03.9 ; Gastroesophageal reflux disease without esophagitis K21.9 ; Screening cholesterol level Z13.220 ; Essential hypertension I10 and Khadra onychomycosis B37.2 [facility] [address] [id number] [address] [place] [phone] 28 Oct, 2016 Type 1 diabetes mellitus wit hout complication E10.9 [facility] [address] [id number] [address] [place] [id number] 19 Oct, 2016 [facility] [address] [facility] [id number] [address] [place] [phone] 05 Oct, 2016 [facility] [address] [id number] [address] [place] [phone] September, [facility] [address] [id number] [address] [place] [phone] Aug, [facility] [address] [id number] [address] [place] [phone] Jul, [facility] [address] [id number] [address] [place] [phone] Jul, [facility] [address] [id number] [address] [place] [phone] Jul, [facility] [address] [id number] [address] [place] [phone] Jul, [facility] [address] [facility] [id number] [address] [place] [phone] Jul, Type 1 diabetes mellitus wit hout complication E10.9 ; Acquired hypothyroidism E03.9 ; Gastroesophageal reflux disease without esophagitis K21.9 ; Khadra onychomycosis B37.2 and Essential hypertension I10 [facility] [address] [id number] [address] [place] [phone] 14 Jul, [facility] [address] [place] [id number] Jul, [facility] [address] [id number] [address] [place] [phone] Jun, [facility] [address] [facility] [id number] [address] [place] [phone] Jun, Acquired hypothyroidism E03. 9 ; Gastroesophageal reflux disease without esophagitis K21.9 and Type 1 diabetes mellitus without complication E10.9 [facility] [address] [facility] [id number] [address] [place] [phone] Jun, [facility] [address] [facility] [id number] [address] [place] [phone] Jun, [place] [address] [facility] [id number] [address] [place] [phone] Jun, Type 1 diabetes mellitus wit hout complication E10.9 ; Acquired hypothyroidism E03.9 ; Gastroesophageal reflux disease without esophagitis K21.9 and Screening cholesterol level Z13.220 [place] [address] [facility] [id number] [address] [place] [phone] Jun, IMMUNIZATIONS No Known Immunizations SOCIAL HISTORY [...]
--- OUTSIDE RECORDS SUMMARY | 2019-05-16 03:03 | XMS REPORT ---
Author Author Ignacio TURNER Organization [facility] Address [address] [place] [address] Care Team Providers Care Automotive Power Electronics Engineer Name Role Phone MICHAELA TURNER Unavailable PROBLEMS Type Condition ICD9-CM Code [id number] Code Onset Dates Condition S tatus SNOMED Code Problem Essential hypertension I10 Active 60940325 Problem Gastroesophageal reflux disease without esophagitis K21.9 Active 567468693 Problem Acquired hypothyroidism E03.9 Active 307209958 Problem Type 1 diabetes mellitus without complication E10. 9 Active 002379572 Problem Screening cholesterol level Z13.220 [place] [id number] ALLERGIES No Information SOCIAL HISTORY Never Assessed [...]
--- OUTSIDE RECORDS SUMMARY | 2019-05-16 03:03 | XMS REPORT ---
Author Author Ignacio CANAS Organization [facility] Address [address] [place] [address] Care Team Providers Care Utility Bill Complaints Investigator Name Role Phone GONZÁLEZBlaine ELVIS Unavailable PROBLEMS Type Condition ICD9-CM Code ABS36-IM Code Onset Dates Condition S tatus SNOMED Code Problem Long-term use of high-risk medication Z79.899 Active 521822352 Problem Essential hypertension I10 Active 30792274 Problem Type 1 diabetes mellitus without complication E10. 9 Active 641504374 Problem Acquired hypothyroidism E03.9 Active 340414035 Problem Gastroesophageal reflux disease without esophagitis K21.9 Active [id number] ALLERGIES No Information ENCOUNTERS Encounter Location Date Diagnosis [facility] [address] [facility] [id number] [address] [place] [phone] Dec, [facility] [address] [facility] [id number] [address] [place] [phone] Oct, Type 1 diabetes mellitus wit hout complication E10.9 [facility] [address] [facility] [id number] [address] [place] [phone] Oct, Gastroesophageal reflux dise ase without esophagitis K21.9 [facility] [address] [facility] [id number] [address] [place] [phone] September, Type 1 diabetes mellitus wit hout complication E10.9 [facility] [address] [facility] [id number] [address] [place] [phone] September, [facility] [address] [facility] [id number] [address] [place] [phone] Aug, [facility] [address] [facility] [id number] [address] [place] [phone] Aug, Type 1 diabetes mellitus wit hout complication E10.9 [place] [id number] [facility] [id number] [address] [place] [phone] Jul, Type 1 diabetes mellitus wit hout complication E10.9 [facility] [address] [facility] [id number] [address] [place] [phone] Jul, [facility] [address] [facility] [id number] [address] [place] [phone] Jul, [facility] [address] [facility] [id number] [address] [place] [phone] Jun, [facility] [address] [facility] [id number] [address] [place] [phone] Jun, [facility] [address] [place] [id number] [place] [phone] Jun, Type 1 diabetes mellitus wit hout complication E10.9 [facility] [address] [phone] May, Type 1 diabetes mellitus wit hout complication E10.9 [facility] [address] [place] [id number] [address] [place] [phone] May, [facility] [address] [place] [id number] [address] [place] [phone] May, Type 1 diabetes mellitus wit hout complication E10.9 [facility] [address] [place] [id number] [address] [place] [phone] May, Type 1 diabetes mellitus wit hout complication E10.9 ; Acquired hypothyroidism E03.9 ; Gastroesophageal reflux disease without esophagitis K21.9 ; Essential hypertension I10 ; Long-term use of high-risk medication Z79.899 ; Screening for colon cancer Z12.11 and Frequency of urination R35.0 [facility] [address] [place] [id number] [address] [place] [phone] Apr, [facility] [address] [place] [id number] [address] [place] [phone] Mar, [facility] [address] [id number] [address] [place] [phone] Mar, [facility] [address] [id number] [address] [place] [phone] Dec, [facility] [address] [id number] [address] [place] [phone] Dec, [facility] [address] [id number] [address] [place] [phone] Dec, Type 1 diabetes mellitus wit hout complication E10.9 [facility] [address] [id number] [address] [place] [address], [place] [phone] Nov, [facility] [address] [id number] [address] [place] [phone] Nov, [facility] [address] [id number] [address] [place] [phone] Nov, Type 1 diabetes mellitus wit hout complication E10.9 [facility] [address] [id number] [address] [place] [phone] Nov, [facility] [address] [id number] [address] [place] [phone] Nov, Type 1 diabetes mellitus wit hout complication E10.9 [facility] [address] [id number] [address] [place] [phone] Nov, [facility] [address] [id number] [address] [place] [phone] Nov, [facility] [address] [id number] [address] [place] [phone] Nov, [facility] [address] [id number] [address] [place] [phone] Nov, Type 1 diabetes mellitus wit hout complication E10.9 ; Acquired hypothyroidism E03.9 ; Gastroesophageal reflux disease without esophagitis K21.9 ; Screening cholesterol level Z13.220 ; Essential hypertension I10 and Khadra onychomycosis B37.2 [facility] [address] [id number] [address] [place] [phone] 28 Oct, 2016 Type 1 diabetes mellitus wit hout complication E10.9 [facility] [address] [id number] [address] [place] [phone] 19 Oct, 2016 [facility] [address] [facility] [id number] [address] [place] [phone] 05 Oct, 2016 [facility] [address] [id number] [address] [place] [phone] September, [facility] [address] [id number] [address] [place] [phone] Aug, [facility] [address] [id number] [address] [place] [phone] Jul, [facility] [address] [id number] [address] [place] [phone] Jul, [facility] [address] [id number] [address] [place] [phone] Jul, [facility] [address] [id number] [address] [place] [phone] Jul, [facility] [address] [facility] [id number] [address] [place] [phone] Jul, Type 1 diabetes mellitus wit hout complication E10.9 ; Acquired hypothyroidism E03.9 ; Gastroesophageal reflux disease without esophagitis K21.9 ; Khadra onychomycosis B37.2 and Essential hypertension I10 [facility] [address] [id number] [address] [place] [phone] 14 Jul, [facility] [address] [place] [id number] Jul, [facility] [address] [id number] [address] [place] [phone] Jun, [facility] [address] [facility] [id number] [address] [place] [phone] Jun, Acquired hypothyroidism E03. 9 ; Gastroesophageal reflux disease without esophagitis K21.9 and Type 1 diabetes mellitus without complication E10.9 [facility] [address] [facility] [id number] [address] [place] [phone] Jun, [facility] [address] [facility] [id number] [address] [place] [phone] Jun, [place] [address] [facility] [id number] [address] [place] [phone] Jun, Type 1 diabetes mellitus wit hout complication E10.9 ; Acquired hypothyroidism E03.9 ; Gastroesophageal reflux disease without esophagitis K21.9 and Screening cholesterol level Z13.220 [place] [address] [facility] [id number] [address] [place] [phone] Jun, IMMUNIZATIONS No Known Immunizations SOCIAL HISTORY Never Assessed REASON FOR VISIT needing labs PLAN OF CARE VITAL SIGNS MEDICATIONS Unknown [...]
--- OUTSIDE RECORDS SUMMARY | 2019-05-16 03:03 | XMS REPORT ---
Author Author Ignacio TURNER Organization [facility] Address [address] [place] [address] Care Team Providers Care Telephone Interviewer Name Role Phone SILVER TURNERNETTE Unavailable PROBLEMS Type Condition ICD9-CM Code [id number] Code Onset Dates Condition S tatus SNOMED Code Problem Essential hypertension I10 Active 58103064 Problem Gastroesophageal reflux disease without esophagitis K21.9 Active 522552997 Problem Acquired hypothyroidism E03.9 Active 024144072 Problem Type 1 diabetes mellitus without complication E10. 9 Active 746451219 Problem Screening cholesterol level Z13.220 Ac tive 260193565 ALLERGIES Substance Reaction Event Type Date Status Codeine Phosphate Unknown Drug Allergy Jul, Active SOCIAL HISTORY Never Assessed PLAN OF CARE Activity Details Follow Up 3 Months, prn Reason:diabete s VITAL SIGNS Height 70 in 2016-07-28 Weight 204 lb 4 oz lbs 2016-07-28 Temperature 97.7 degrees Fahrenheit 2016-07-28 Heart Rate 92 bpm 2016-07-28 Respiratory Rate 20 2016-07-28 BMI 29.30 kg/m2 2016-07-28 Blood pressure systolic 176 mmHg 2016-07-28 Blood pressure diastolic 82 mmHg 2016-07-28 MEDICATIONS Medication Instructions Dosage Frequency Start Date End Date Duration S tatus Lamisil 250 MG Orally Once a day 1 tablet 24h Jul, 13 Mik, 2 017 30 days Active BD Insulin Syringe 25G X 5/8 subcutaneously 3 times a day sliding s janian 8h Jun, Active Ranitidine HCl 150 MG Orally twice a day 1 capsule 12h Active Levothyroxine Sodium 200 MCG Orally Once a day 1 tablet on an empty stomach in the morning 24h Active ReliOn Blood Glucose Test 1 In Vitro 3 times a day as directed 8h Jul, Active Lisinopril 10 mg Orally Once a day 1 tablet 24h Jul, 30 day(s) Active RESULTS No Results PROCEDURES Procedure Date Ordered Result Body Site [facility] VISIT ESTABLISHED PATIENT July 28, 2016 IMMUNIZATIONS No Known Immunizations MEDICAL (GENERAL) HISTORY Type Description Date Medical History thyroid disorder Medical History type I diabetes Medical History acid reflux Medical History spinal menningitis Surgical History appendectomy 2016 Surgical History hernia repair at age 14 Hospitalization History Surgery(s) only Hospitalization History spinal menningitis
--- OUTSIDE RECORDS SUMMARY | 2019-05-16 03:03 | XMS REPORT ---
Author Author Ignacio CANAS Organization [facility] Address [address] [place] [address] Care Team Providers Care Elastic Assembler Name Role Phone GONZÁLEZBlaine ELVIS Unavailable PROBLEMS Type Condition ICD9-CM Code PNE38-MF Code Onset Dates Condition S tatus SNOMED Code Problem Long-term use of high-risk medication Z79.899 Active 894399202 Problem Essential hypertension I10 Active 92740599 Problem Type 1 diabetes mellitus without complication E10. 9 Active 695333003 Problem Acquired hypothyroidism E03.9 Active 257876163 Problem Gastroesophageal reflux disease without esophagitis K21.9 Active 399489179 ALLERGIES No Information ENCOUNTERS Encounter Location Date Diagnosis [facility] [address] [facility] [id number] [address] [place] [phone] Dec, [facility] [address] [facility] [id number] [address] [place] [phone] Oct, Type 1 diabetes mellitus wit hout complication E10.9 [facility] [address] [facility] [id number] [address] [place] [phone] Oct, Gastroesophageal reflux dise ase without esophagitis K21.9 [facility] [address] [facility] [id number] [address] [place] [phone] September, Type 1 diabetes mellitus wit hout complication E10.9 [facility] [address] [facility] [id number] [address] [place] [phone] September, [facility] [address] [facility] [id number] [address] [place] [phone] Aug, [facility] [address] [facility] [id number] [address] [place] [phone] Aug, Type 1 diabetes mellitus wit hout complication E10.9 [place] [address] [facility] [id number] [address] [place] [phone] Jul, Type 1 diabetes mellitus wit hout complication E10.9 [facility] [address] [facility] [id number] [address] [place] [phone] Jul, [facility] [address] [facility] [id number] [address] [place] [phone] Jul, [facility] [address] [facility] [id number] [address] [place] [phone] Jun, [facility] [address] [facility] [id number] [address] [place] [phone] Jun, [facility] [address] [place] [id number] [place] [phone] Jun, Type 1 diabetes mellitus wit hout complication E10.9 [facility] [address] [phone] May, Type 1 diabetes mellitus wit hout complication E10.9 [facility] [address] [place] [id number] [address] [place] [phone] May, [facility] [address] [place] [id number] [address] [place] [phone] May, Type 1 diabetes mellitus wit hout complication E10.9 [facility] [address] [place] [id number] [address] [place] [phone] May, Type 1 diabetes mellitus wit hout complication E10.9 ; Acquired hypothyroidism E03.9 ; Gastroesophageal reflux disease without esophagitis K21.9 ; Essential hypertension I10 ; Long-term use of high-risk medication Z79.899 ; Screening for colon cancer Z12.11 and Frequency of urination R35.0 [facility] [address] [place] [id number] [address] [place] [phone] Apr, [facility] [address] [place] [id number] [address] [place] [phone] Mar, [facility] [address] [id number] [address] [place] [phone] Mar, [facility] [address] [id number] [address] [place] [phone] Dec, [facility] [address] [id number] [address] [place] [phone] Dec, [facility] [address] [id number] [address] [place] [phone] Dec, Type 1 diabetes mellitus wit hout complication E10.9 [facility] [address] [id number] [address] [place] [address], [place] [phone] Nov, [facility] [address] [id number] [address] [place] [phone] Nov, [facility] [address] [id number] [address] [place] [phone] Nov, Type 1 diabetes mellitus wit hout complication E10.9 [facility] [address] [id number] [address] [place] [phone] Nov, [facility] [address] [id number] [address] [place] [phone] Nov, Type 1 diabetes mellitus wit hout complication E10.9 [facility] [address] [id number] [address] [place] [phone] Nov, [facility] [address] [id number] [address] [place] [phone] Nov, [facility] [address] [id number] [address] [place] [phone] Nov, [facility] [address] [id number] [address] [place] [phone] Nov, Type 1 diabetes mellitus wit hout complication E10.9 ; Acquired hypothyroidism E03.9 ; Gastroesophageal reflux disease without esophagitis K21.9 ; Screening cholesterol level Z13.220 ; Essential hypertension I10 and Khadra onychomycosis B37.2 [facility] [address] [id number] [address] [place] [phone] 28 Oct, 2016 Type 1 diabetes mellitus wit hout complication E10.9 [facility] [address] [id number] [address] [place] [phone] 19 Oct, 2016 [facility] [address] [facility] [id number] [address] [place] [phone] 05 Oct, 2016 [facility] [address] [id number] [address] [place] [phone] September, [facility] [address] [id number] [address] [place] [phone] Aug, [facility] [address] [id number] [address] [place] [phone] Jul, [facility] [address] [id number] [address] [place] [phone] Jul, [facility] [address] [id number] [address] [place] [phone] Jul, [facility] [address] [id number] [address] [place] [phone] Jul, [facility] [address] [facility] [id number] [address] [place] [id number] Jul, Type 1 diabetes mellitus wit hout complication E10.9 ; Acquired hypothyroidism E03.9 ; Gastroesophageal reflux disease without esophagitis K21.9 ; Khadra onychomycosis B37.2 and Essential hypertension I10 [facility] [address] [id number] [address] [place] [phone] 14 Jul, [facility] [address] [place] [id number] Jul, [facility] [address] [id number] [address] [place] [phone] Jun, [facility] [address] [facility] [id number] [address] [place] [phone] Jun, Acquired hypothyroidism E03. 9 ; Gastroesophageal reflux disease without esophagitis K21.9 and Type 1 diabetes mellitus without complication E10.9 [facility] [address] [facility] [id number] [address] [place] [phone] Jun, [facility] [address] [facility] [id number] [address] [place] [phone] 20 Jun, 2016 [place] [address] [facility] [id number] [address] [place] [phone] Jun, Type 1 diabetes mellitus wit hout complication E10.9 ; Acquired hypothyroidism E03.9 ; Gastroesophageal reflux disease without esophagitis K21.9 and Screening cholesterol level Z13.220 [place] [address] [facility] [id number] [address] [place] [phone] 13 Jun, 2016 IMMUNIZATIONS No Known Immunizations SOCIAL HISTORY Never Assessed REASON FOR VISIT Refill request PLAN OF CARE VITAL SIGNS MEDICATIONS Medication Instructions Dosage Frequency Start Date End Date Duration S amarilys Reilly Blood Glucose Test - In Vitro 3 times a day as directed 8h Oct, Active RESULTS No Results PROCEDURES No [...]
--- OUTSIDE RECORDS SUMMARY | 2019-05-16 03:03 | XMS REPORT ---
Author Author Ignacio TURNER Organization [facility] Address [address] [place] [address] Care Team Providers Care Packaging Assembler Name Role Phone MICHAELA TURNER Unavailable PROBLEMS Type Condition ICD9-CM Code [id number] Code Onset Dates Condition S tatus SNOMED Code Problem Essential hypertension I10 Active 86816249 Problem Gastroesophageal reflux disease without esophagitis K21.9 Active 434197531 Problem Acquired hypothyroidism E03.9 Active 888195858 Problem Type 1 diabetes mellitus without complication E10. 9 Active 377036756 Problem Screening cholesterol level Z13.220 Ac tive 917828465 ALLERGIES No Information SOCIAL HISTORY Never Assessed [...]
--- OUTSIDE RECORDS SUMMARY | 2019-05-16 03:03 | XMS REPORT ---
Author Author Ignacio CANAS Organization [facility] Address [address] [place] [address] Care Team Providers Care Axminster Rug Setter Name Role Phone GONZÁLEZBlaine ELVIS Unavailable PROBLEMS Type Condition ICD9-CM Code [id number] Code Onset Dates Condition S tatus SNOMED Code Problem Long-term use of high-risk medication Z79.899 Active 499869088 Problem Essential hypertension I10 Active 86919112 Problem Type 1 diabetes mellitus without complication E10. 9 Active 974896230 Problem Acquired hypothyroidism E03.9 Active 530563801 Problem Gastroesophageal reflux disease without esophagitis K21.9 Active [id number] ALLERGIES No Information ENCOUNTERS Encounter Location Date Diagnosis [facility] [address] [facility] [id number] [address] [place] [phone] Dec, [facility] [address] [facility] [id number] [address] [place] [phone] Oct, Type 1 diabetes mellitus wit hout complication E10.9 [facility] [address] [facility] [id number] [address] [place] [phone] Oct, Gastroesophageal reflux dise ase without esophagitis K21.9 [facility] [address] [facility] [id number] [address] [place] [phone] September, Type 1 diabetes mellitus wit hout complication E10.9 [facility] [address] [facility] [id number] [address] [place] [phone] September, [facility] [address] [facility] [id number] [address] [place] [phone] Aug, [facility] [address] [facility] [id number] [address] [place] [phone] Aug, Type 1 diabetes mellitus wit hout complication E10.9 [place] [id number] [facility] [id number] [address] [place] [phone] Jul, Type 1 diabetes mellitus wit hout complication E10.9 [facility] [address] [facility] [id number] [address] [place] [phone] Jul, [facility] [address] [facility] [id number] [address] [place] [phone] Jul, [facility] [address] [facility] [id number] [address] [place] [phone] Jun, [facility] [address] [facility] [id number] [address] [place] [phone] Jun, [facility] [address] [place] [id number] [place] [phone] Jun, Type 1 diabetes mellitus wit hout complication E10.9 [facility] [address] [phone] May, Type 1 diabetes mellitus wit hout complication E10.9 [facility] [address] [place] [id number] [address] [place] [phone] May, [facility] [address] [place] [id number] [address] [place] [phone] May, Type 1 diabetes mellitus wit hout complication E10.9 [facility] [address] [place] [id number] [address] [place] [phone] May, Type 1 diabetes mellitus wit hout complication E10.9 ; Acquired hypothyroidism E03.9 ; Gastroesophageal reflux disease without esophagitis K21.9 ; Essential hypertension I10 ; Long-term use of high-risk medication Z79.899 ; Screening for colon cancer Z12.11 and Frequency of urination R35.0 [facility] [address] [place] [id number] [address] [place] [phone] Apr, [facility] [address] [place] [id number] [address] [place] [phone] Mar, [facility] [address] [id number] [address] [place] [phone] Mar, [facility] [address] [id number] [address] [place] [phone] Dec, [facility] [address] [id number] [address] [place] [phone] Dec, [facility] [address] [id number] [address] [place] [phone] Dec, Type 1 diabetes mellitus wit hout complication E10.9 [facility] [address] [id number] [address] [place] [address], [place] [address] Nov, [facility] [address] [id number] [address] [place] [phone] Nov, [facility] [address] [id number] [address] [place] [phone] Nov, Type 1 diabetes mellitus wit hout complication E10.9 [facility] [address] [id number] [address] [place] [phone] Nov, [facility] [address] [id number] [address] [place] [phone] Nov, Type 1 diabetes mellitus wit hout complication E10.9 [facility] [address] [id number] [address] [place] [phone] Nov, [facility] [address] [id number] [address] [place] [phone] Nov, [facility] [address] [id number] [address] [place] [phone] Nov, [facility] [address] [id number] [address] [place] [phone] Nov, Type 1 diabetes mellitus wit hout complication E10.9 ; Acquired hypothyroidism E03.9 ; Gastroesophageal reflux disease without esophagitis K21.9 ; Screening cholesterol level Z13.220 ; Essential hypertension I10 and Khadra onychomycosis B37.2 [facility] [address] [id number] [address] [place] [phone] 28 Oct, 2016 Type 1 diabetes mellitus wit hout complication E10.9 [facility] [address] [id number] [address] [place] [phone] 19 Oct, 2016 [facility] [address] [facility] [id number] [address] [place] [phone] 05 Oct, 2016 [facility] [address] [id number] [address] [place] [phone] September, [facility] [address] [id number] [address] [place] [phone] Aug, [facility] [address] [id number] [address] [place] [phone] Jul, [facility] [address] [id number] [address] [place] [phone] Jul, [facility] [address] [id number] [address] [place] [phone] Jul, [facility] [address] [id number] [address] [place] [phone] Jul, [facility] [address] [facility] [id number] [address] [place] [phone] Jul, Type 1 diabetes mellitus wit hout complication E10.9 ; Acquired hypothyroidism E03.9 ; Gastroesophageal reflux disease without esophagitis K21.9 ; Khadra onychomycosis B37.2 and Essential hypertension I10 [facility] [address] [id number] [address] [place] [phone] 14 Jul, [facility] [address] [place] [id number] Jul, [facility] [address] [id number] [address] [place] [phone] Jun, [facility] [address] [facility] [id number] [address] [place] [phone] Jun, Acquired hypothyroidism E03. 9 ; Gastroesophageal reflux disease without esophagitis K21.9 and Type 1 diabetes mellitus without complication E10.9 [facility] [address] [facility] [id number] [address] [place] [phone] Jun, [facility] [address] [facility] [id number] [address] [place] [phone] Jun, [place] [address] [facility] [id number] [address] [place] [phone] Jun, Type 1 diabetes mellitus wit hout complication E10.9 ; Acquired hypothyroidism E03.9 ; Gastroesophageal reflux disease without esophagitis K21.9 and Screening cholesterol level Z13.220 [place] [address] [facility] [id number] [address] [place] [phone] Jun, IMMUNIZATIONS No Known Immunizations SOCIAL HISTORY Never Assessed REASON FOR VISIT BS f/u attempt PLAN OF CARE VITAL SIGNS MEDICATIONS Unknown [...]
--- OUTSIDE RECORDS SUMMARY | 2019-05-16 03:03 | XMS REPORT ---
Author Author Ignacio Cisneros Organization [facility] Address [address] [place] [address] Care Team Providers Care Crop Specialist Name Role Phone MICHAELA Cisneros Unavailable PROBLEMS Type Condition ICD9-CM Code YEE29-XB Code Onset Dates Condition S tatus SNOMED Code Problem Long-term use of high-risk medication Z79.899 Active 836863186 Problem Essential hypertension I10 Active 09840772 Problem Type 1 diabetes mellitus without complication E10. 9 Active 328156651 Problem Acquired hypothyroidism E03.9 Active 252483882 Problem Gastroesophageal reflux disease without esophagitis K21.9 Active 497429099 ALLERGIES No Information ENCOUNTERS Encounter Location Date Diagnosis [facility] [id number] [place] [phone] Aug, [facility] [id number] [place] [phone] Jul, [facility] [address] [place] [id number] [address] [place] [phone] Jul, [facility] [address] [facility] [id number] [address] [place] [phone] Jun, [facility] [address] [place] [id number] [address] [place] [phone] Jun, [facility] [address] [facility] [id number] [address] [place] [phone] Jun, Type 1 diabetes mellitus wit hout complication E10.9 [facility] [address] [facility] [id number] [address] [place] [phone] May, Type 1 diabetes mellitus wit hout complication E10.9 [facility] [address] [place] [id number] [address] [place] [phone] May, [facility] [address] [id number] [address] [place] [phone] May, Type 1 diabetes mellitus wit hout complication E10.9 [facility] [address] [facility] [id number] [address] [place] [phone] May, Type 1 diabetes mellitus wit hout complication E10.9 ; Acquired hypothyroidism E03.9 ; Gastroesophageal reflux disease without esophagitis K21.9 ; Essential hypertension I10 ; Long-term use of high-risk medication Z79.899 ; Screening for colon cancer Z12.11 and Frequency of urination R35.0 [facility] [address] [id number] [address] [place] [phone] Apr, [facility] [address] [facility] [id number] [address] [place] [phone] Mar, [facility] [address] [facility] [id number] [address] [place] [phone] Mar, [facility] [address] [facility] [id number] [address] [place] [phone] Dec, [facility] [address] [facility] [id number] [address] [place] [phone] Dec, [facility] [address] [facility] [id number] [address] [place] [phone] Dec, Type 1 diabetes mellitus wit hout complication E10.9 [facility] [address] [facility] [id number] [address] [place] [phone] Nov, [facility] [address] [id number] [address] [place] [phone] Nov, [facility] [address] [facility] [id number] [address] [place] [phone] Nov, Type 1 diabetes mellitus wit hout complication E10.9 [facility] [address] [facility] [id number] [address] [place] [phone] Nov, [facility] [address] [id number] [address] [place] [phone] Nov, Type 1 diabetes mellitus wit hout complication E10.9 [facility] [address] [id number] [address] [place] [phone] Nov, [facility] [address] [facility] [id number] [address] [place] [phone] Nov, [facility] [address] [facility] [id number] [address] [place] [phone] Nov, [facility] [address] [facility] [id number] [address] [place] [phone] Nov, Type 1 diabetes mellitus wit hout complication E10.9 ; Acquired hypothyroidism E03.9 ; Gastroesophageal reflux disease without esophagitis K21.9 ; Screening cholesterol level Z13.220 ; Essential hypertension I10 and Khadra onychomycosis B37.2 [facility] [address] [id number] [address] [place] [phone] Oct, Type 1 diabetes mellitus wit hout complication E10.9 [facility] [address] [id number] [address] [place] [phone] Oct, [facility] [address] [facility] [id number] [address] [place] [phone] Oct, [facility] [address] [id number] [address] [place] [phone] September, [facility] [address] [id number] [address] [place] [phone] Aug, [facility] [address] [id number] [address] [place] [phone] Jul, [facility] [address] [facility] [id number] [address] [place] [phone] Jul, [facility] [address] [facility] [id number] [address] [place] [phone] Jul, [facility] [address] [place] [id number] [address] [place] [id number] 15 Jul, 2016 [facility] [address] [facility] [id number] [address] [place] [phone] 15 Jul, 2016 Type 1 diabetes mellitus wit hout complication E10.9 ; Acquired hypothyroidism E03.9 ; Gastroesophageal reflux disease without esophagitis K21.9 ; Khadra onychomycosis B37.2 and Essential hypertension I10 [place] [id number] [place] [id number] [address] [place] [phone] 14 Jul, 2016 [facility] [address] [place] [id number] Jul, [place] [address] [facility] [id number] [address] [place] [phone] Jun, [place] [address] [place] [id number] [address] [place] [phone] Jun, Acquired hypothyroidism E03. 9 ; Gastroesophageal reflux disease without esophagitis K21.9 and Type 1 diabetes mellitus without complication E10.9 [place] [id number] [facility] [id number] [address] [place] [phone] Jun, [place] [address] [place] [id number] [address] [place] [phone] Jun, [place] [address] [place] [id number] [address] [place] [id number] Jun, Type 1 diabetes mellitus wit hout complication E10.9 ; Acquired hypothyroidism E03.9 ; Gastroesophageal reflux disease without esophagitis K21.9 and Screening cholesterol level Z13.220 [place] [address] [facility] [id number] [address] [place] [phone] Jun, IMMUNIZATIONS No Known Immunizations SOCIAL HISTORY Never Assessed REASON FOR VISIT PLAN OF CARE VITAL SIGNS MEDICATIONS Medication Instructions Dosage Frequency Start Date End Date Duration S tatus Levemir 100 UNIT/ML ICD10- E10.9 Once a day 16 units AM 24h 15 M 2016 90 days Active ReliOn Blood Glucose Test - In Vitro 3 times a day as directed 8h Oct, 30 days Active Insulin Syringe-Needle U-100 30G X 1/2" 1 ML subcutaneously 4 times a day as directed 6h 28 Oct, 2016 30 days Active RESULTS No Results PROCEDURES No Known procedures INSTRUCTIONS MEDICATIONS ADMINISTERED No Known Medications MEDICAL (GENERAL) HISTORY Type Description Date Medical History Hypothyroidism Medical History type I diabetes Medical History GERD Medical History spinal menningitis Medical History HTN - BP goes down if off the Lisnopril Medical History Never had EGD or Colonoscopy- Surgical History appendectomy 2015 Surgical History hernia repair at age 14 Hospitalization History Surgery(s) only Hospitalization History spinal menningitis
--- OUTSIDE RECORDS SUMMARY | 2019-05-16 03:03 | XMS REPORT ---
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 9 Active 938680571 Problem Acquired hypothyroidism E03.9 Active 099210489 Problem Gastroesophageal reflux disease without esophagitis K21.9 Active [id number] ALLERGIES No Information ENCOUNTERS Encounter Location Date Diagnosis [facility] [place] [address] [facility] [id number] [place] [phone] Dec, [facility] [place] [address] [facility] [id number] [place] [phone] Oct, Type 1 diabetes mellitus wit hout complication E10.9 [facility] [place] [address] [facility] [id number] [place] [phone] Oct, Gastroesophageal reflux dise ase without esophagitis K21.9 [facility] [place] [address] [facility] [id number] [place] [phone] September, Type 1 diabetes mellitus wit hout complication E10.9 [facility] [place] [address] [facility] [id number] [place] [phone] September, [facility] [place] [address] [facility] [id number] [place] [phone] Aug, [facility] [place] [address] [facility] [id number] [place] [phone] Aug, Type 1 diabetes mellitus wit hout complication E10.9 [place] [id number] [facility] [id number] [place] [phone] Jul, Type 1 diabetes mellitus wit hout complication E10.9 [facility] [place] [address] [facility] [id number] [place] [phone] Jul, [facility] [place] [address] [facility] [id number] [place] [phone] Jul, [facility] [place] [address] [facility] [id number] [place] [phone] Jun, [facility] [place] [address] [facility] [id number] [place] [phone] Jun, [facility] [place] [address] [place] [id number] [place] [phone] Jun, Type 1 diabetes mellitus wit hout complication E10.9 [facility] [place] [address] [phone] May, Type 1 diabetes mellitus wit hout complication E10.9 [facility] [place] [address] [place] [id number] [place] [phone] May, [facility] [place] [address] [place] [id number] [address] [place] [phone] May, Type 1 diabetes mellitus wit hout complication E10.9 [facility] [place] [address] [place] [id number] [address] [place] [phone] May, Type 1 diabetes mellitus wit hout complication E10.9 ; Acquired hypothyroidism E03.9 ; Gastroesophageal reflux disease without esophagitis K21.9 ; Essential hypertension I10 ; Long-term use of high-risk medication Z79.899 ; Screening for colon cancer Z12.11 and Frequency of urination R35.0 [facility] [place] [address] [place] [id number] [address] [place] [phone] Apr, [facility] [place] [address] [place] [id number] [place] [phone] Mar, [facility] [place] [address] [id number] [address] [place] [phone] Mar, [facility] [place] [address] [id number] [address] [place] [phone] Dec, [facility] [place] [address] [id number] [address] [place] [phone] Dec, [facility] [place] [address] [id number] [address] [place] [phone] Dec, Type 1 diabetes mellitus wit hout complication E10.9 [facility] [place] [address] [id number] [address] [place] [address], [place] [phone] Nov, [facility] [place] [address] [id number] [address] [place] [phone] Nov, [facility] [place] [address] [id number] [address] [place] [phone] Nov, Type 1 diabetes mellitus wit hout complication E10.9 [facility] [place] [address] [id number] [address] [place] [phone] Nov, [facility] [place] [address] [id number] [address] [place] [phone] Nov, Type 1 diabetes mellitus wit hout complication E10.9 [facility] [place] [address] [id number] [address] [place] [phone] Nov, [facility] [place] [address] [id number] [address] [place] [phone] Nov, [facility] [place] [address] [id number] [address] [place] [phone] Nov, [facility] [place] [address] [id number] [address] [place] [phone] Nov, Type 1 diabetes mellitus wit hout complication E10.9 ; Acquired hypothyroidism E03.9 ; Gastroesophageal reflux disease without esophagitis K21.9 ; Screening cholesterol level Z13.220 ; Essential hypertension I10 and Khadra onychomycosis B37.2 [facility] [place] [address] [id number] [address] [place] [phone] 28 Oct, 2016 Type 1 diabetes mellitus wit hout complication E10.9 [facility] [place] [address] [id number] [address] [place] [phone] 19 Oct, 2016 [facility] [place] [address] [facility] [id number] [place] [phone] 05 Oct, 2016 [facility] [place] [address] [id number] [address] [place] [phone] September, [facility] [place] [address] [id number] [address] [place] [phone] Aug, [facility] [place] [address] [id number] [address] [place] [phone] Jul, [facility] [place] [address] [id number] [address] [place] [phone] Jul, [facility] [place] [address] [id number] [address] [place] [phone] Jul, [facility] [place] [address] [id number] [address] [place] [phone] Jul, [facility] [place] [address] [facility] [id number] [place] [phone] Jul, Type 1 diabetes mellitus wit hout complication E10.9 ; Acquired hypothyroidism E03.9 ; Gastroesophageal reflux disease without esophagitis K21.9 ; Khadra onychomycosis B37.2 and Essential hypertension I10 [facility] [place] [address] [id number] [address] [place] [phone] 14 Jul, [facility] [address] [place] [id number] Jul, [facility] [place] [address] [id number] [address] [place] [phone] Jun, [facility] [place] [address] [facility] [id number] [place] [phone] Jun, Acquired hypothyroidism E03. 9 ; Gastroesophageal reflux disease without esophagitis K21.9 and Type 1 diabetes mellitus without complication E10.9 [facility] [place] [address] [facility] [id number] [place] [phone] Jun, [facility] [place] [address] [facility] [id number] [place] [phone] Jun, [place] [address] [facility] [id number] [place] [phone] Jun, Type 1 diabetes mellitus wit hout complication E10.9 ; Acquired hypothyroidism E03.9 ; Gastroesophageal reflux disease without esophagitis K21.9 and Screening cholesterol level Z13.220 [place] [address] [facility] [id number] [place] [phone] Jun, IMMUNIZATIONS No Known Immunizations SOCIAL HISTORY Never Assessed REASON FOR VISIT BS f/u PLAN OF CARE VITAL SIGNS MEDICATIONS Unknown [...]
--- OUTSIDE RECORDS SUMMARY | 2019-05-16 03:04 | XMS REPORT | Continuity of Care Document ---
Author Organization Unknown Address Unknown Phone Unavailable Allergies Active Description Code Type Severity Reaction Onset Reported/Identified Relationship to Patient Clinical Status Yes No Known Drug Allergies [id number] Drug Allergy Unknown N/A 04/19/2019 Medications There is no data. Problems Date Dx Coded Attending Type Code Diagnosis Diagnosed By 04/19/2019 PEEWEE VILLAVICENCIO MD Ot E10.1 0 TYPE 1 DIABETES MELLITUS WITH KETOACIDOS 04/19/2019 PEEWEE VILLAVICENCIO MD Ot E86.0 DEHYDRATION 04/19/2019 PEEWEE VILLAVICENCIO MD Ot F41.9 ANXIETY DISORDER, UNSPECIFIED 04/19/2019 PEEWEE VILLAVICENCIO MD Ot I10 ESSENTIAL (PRIMARY) HYPERTENSION 04/19/2019 PEEWEE VILLAVICENCIO MD Ot R11.2 NAUSEA WITH VOMITING, UNSPECIFIED 04/19/2019 PEEWEE VILLAVICENCIO MD Ot R19.7 DIARRHEA, UNSPECIFIED 04/19/2019 PEEWEE VILLAVICENCIO MD Ot Z79.4 QUANTITATIVE EQUITY HEAD (CURRENT) USE OF INSULIN 04/23/2019 PEEWEE VILLAVICENCIO MD Ot E10.1 0 TYPE 1 DIABETES MELLITUS WITH KETOACIDOS 04/23/2019 PEEWEE VILLAVICENCIO MD Ot E86.0 DEHYDRATION 04/23/2019 PEEWEE VILLAVICENCIO MD Ot F41.9 ANXIETY DISORDER, UNSPECIFIED 04/23/2019 PEEWEE VILLAVICENCIO MD Ot I10 ESSENTIAL (PRIMARY) HYPERTENSION 04/23/2019 PEEWEE VILLAVICENCIO MD Ot R11.2 NAUSEA WITH VOMITING, UNSPECIFIED 04/23/2019 PEEWEE VILLAVICENCIO MD Ot R19.7 DIARRHEA, UNSPECIFIED 04/23/2019 PEEWEE VILLAVICENCIO MD, Ot Z79.4 QUANTITATIVE EQUITY HEAD (CURRENT) USE OF INSULIN Procedures There is no data. Results Test Result Range MICROALBUMIN/CREATININE RATIO, URINE - 0 09/22/17 12:43 CREATININE, RANDOM URINE 33 mg/dL 20-37 0 MICROALBUMIN 1.2 mg/dL See Note: MICROALBUMIN/CREATININE RATIO, RANDOM URINE 36 mcg /mg creat <30 CBC - 03/08/18 12:03 WHITE BLOOD CELL COUNT 9.0 Thousand/uL 3 .8-10.8 RED BLOOD CELL COUNT 4.34 Million/uL 4.2 0-5.80 HEMOGLOBIN 12.8 g/dL 13.2-17.1 HEMATOCRIT 39.6 % 38.5-50.0 MCV 91.2 fL 80.0-100.0 MCH 29.5 pg 27.0-33.0 MCHC 32.3 g/dL 32.0-36.0 RDW 12.6 % 11.0-15.0 PLATELET COUNT 298 Thousand/uL 140-400 MPV 10.8 fL 7.5-12.5 ABSOLUTE NEUTROPHILS 5751 cells/uL 1500- 7800 ABSOLUTE LYMPHOCYTES 2097 cells/uL 850-3 900 ABSOLUTE MONOCYTES 585 cells/uL 200-950 ABSOLUTE EOSINOPHILS 468 cells/uL 15-500 ABSOLUTE BASOPHILS 99 cells/uL 0-200 NEUTROPHILS 63.9 % NRG LYMPHOCYTES 23.3 % NRG MONOCYTES 6.5 % NRG EOSINOPHILS 5.2 % NRG BASOPHILS 1.1 % NRG VITAMIN B12 - 03/08/18 12:03 VITAMIN B12 462 pg/mL 200-1100 TSH w/ FREE T4 - 09/06/18 12:00 TSH 4.06 mIU/L 0.40-4.50 T4, FREE 1.5 ng/dL 0.8-1.8 CMP - 09/06/18 12:00 GLUCOSE 473 mg/dL 65-99 UREA NITROGEN (BUN) 19 mg/dL 7-25 CREATININE 1.00 mg/dL 0.70-1.25 eGFR NON-AFR. CYMRAES 78 mL/min/1.73m2 > OR = 60 eGFR 90 mL/min/1.73m2 > OR = 60 BUN/CREATININE RATIO NOT APPLICABLE (calc) 6-22 SODIUM 132 mmol/L 135-146 POTASSIUM 5.3 mmol/L 3.5-5.3 CHLORIDE 97 mmol/L 98-110 CARBON DIOXIDE 27 mmol/L 20-32 CALCIUM 8.9 mg/dL 8.6-10.3 PROTEIN, TOTAL 6.3 g/dL 6.1-8.1 ALBUMIN 4.0 g/dL 3.6-5.1 GLOBULIN 2.3 g/dL (calc) 1.9-3.7 ALBUMIN/GLOBULIN RATIO 1.7 (calc) 1.0-2. 5 BILIRUBIN, TOTAL 0.6 mg/dL 0.2-1.2 ALKALINE PHOSPHATASE 95 U/L 40-115 AST 17 U/L 10-35 ALT 15 U/L 9-46 CULTURE, URINE - 11/11/18 11:43 CULTURE, URINE, ROUTINE SEE NOTE NRG Complete blood count (CBC) with automate d white blood cell (WBC) differential - 04/19/19 21:00 Blood leukocytes automated count (number/volume) 12.5 10*3/uL 4.3-11.0 Blood erythrocytes automated count (number/volume) 5.03 10*6/uL 4.35-5.85 Venous blood hemoglobin measurement (mass/volume) 14.3 g/dL 13.3-17.7 Blood hematocrit (volume fraction) 45 % 40-54 Automated erythrocyte mean corpuscular volume 89 [ foz_us] 80-99 Automated erythrocyte mean corpuscular h emoglobin (mass per erythrocyte) 28 pg 25-34 Automated erythrocyte mean corpuscular h emoglobin concentration measurement (mass/volume) 32 g/dL 32-36 Automated erythrocyte distribution width ratio 13. 7 % 10.0- 14.5 Automated blood platelet count (count/volume) 320 10*3/uL 130-400 Automated blood platelet mean volume measurement 10.2 [foz_us] 7.4-10.4 Automated blood neutrophils/100 leukocytes 87 % 42-75 Automated blood lymphocytes/100 leukocytes 5 % 12-44 Blood monocytes/100 leukocytes 6 % 0-12 Automated blood eosinophils/100 leukocytes 1 % 0-10 Automated blood basophils/100 leukocytes 0 % 0-10 Blood neutrophils automated count (number/volume) 10.9 10*3 1.8-7.8 Blood lymphocytes automated count (number/volume) 0.6 10*3 1.0-4.0 Blood monocytes automated count (number/volume) 0. 8 10*3 0.0-1.0 Automated eosinophil count 0.1 10*3/uL 0 .0-0.3 Automated blood basophil count (count/volume) 0.1 10*3/uL 0.0-0.1 Manual absolute plasma cell count - 12/0 10/01 21:00 Blood monocytes/100 leukocytes 6 % NRG Manual blood segmented neutrophils/100 leukocytes 78 % NRG Blood band neutrophils/100 leukocytes 13 % NRG Manual blood lymphocytes/100 leukocytes 2 % NRG Manual eosinophils/100 leukocytes in nose 1 % NRG Manual blood basophils/100 leukocytes 0 % NRG Blood erythrocyte morphology finding identification NORMAL NRG Comprehensive metabolic panel - 04/19/19 21:00 Serum or plasma sodium measurement (moles/volume) 133 mmol/L 135-145 Serum or plasma potassium measurement (moles/volume) 4.2 mmol/L 3.6-5.0 Serum or plasma chloride measurement (moles/volume) 94 mmol/L 98-107 Carbon dioxide 13 mmol/L 21-32 Serum or plasma anion gap determination (moles/volume) 26 mmol/L 5-14 Serum or plasma urea nitrogen measurement (mass/volume ) 27 mg/dL 7-18 Serum or plasma creatinine measurement (mass/volume) 1.25 mg/dL 0.60-1.30 Serum or plasma urea nitrogen/creatinine mass ratio 22 NRG Serum or plasma creatinine measurement w ith calculation of estimated glomerular filtration rate 57 NRG Serum or plasma glucose measurement (mass/volume) 511 mg/dL 70-105 Serum or plasma calcium measurement (mass/volume) 8.5 mg/dL 8.5-10.1 Serum or plasma total bilirubin measurement (mass/volu me) 0.4 mg/dL 0.1-1.0 Serum or plasma alkaline phosphatase ayah surement (enzymatic activity/volume) 98 U/L 40-136 Serum or plasma aspartate aminotransfera se measurement (enzymatic activity/volume) 21 U/L 5-34 Serum or plasma alanine aminotransferase measurement (enzymatic activity/volume) 16 U/L 0-55 Serum or plasma protein measurement (mass/volume) 7.2 g/dL 6.4-8.2 Serum or plasma albumin measurement (mass/volume) 4.0 g/dL 3.2-4.5 CALCIUM CORRECTED 8.5 mg/dL 8.5-10.1 Lipase - 04/19/19 21:00 Lipase 10 U/L 8-78 Serum or plasma ethanol measurement (mas s/volume) - 04/19/19 21:00 Serum or plasma ethanol measurement (mass/volume) < mg/dL <10 Capillary blood glucose measurement by g lucometer (mass/volume) - 04/19/19 21:10 Capillary blood glucose measurement by glucometer (mas s/volume) 378 mg/dL 70-110 Capillary blood pH measurement - 9 22:10 Capillary blood pH measurement 7.31 7.37-7.43 Capillary blood glucose measurement by g lucometer (mass/volume) - 04/19/19 22:41 Capillary blood glucose measurement by glucometer (mas s/volume) 250 mg/dL 70-110 Encounters ACCT No. Visit Date/Time Discharge Status Pt. Type Provider Facility Loc./Unit Complaint [id number] 05/14/2019 11:20:00 [id number] 11/11/2018 10:50:00 Document Registration [id number] 09/06/2018 11:00:00 Document Registration [id number] 03/08/2018 11:00:00 Document Registration [id number] 09/22/2017 12:40:00 Document Registration [id number] 04/19/2019 20:40:00 019 23:02:00 DIS Emergency SAUD BULL, PEEWEE Faulkner [facility] ER FS [facility]
--- OUTSIDE RECORDS SUMMARY | 2019-05-16 03:04 | XMS REPORT ---
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 9 Active 131154246 Problem Acquired hypothyroidism E03.9 Active 175294747 Problem Gastroesophageal reflux disease without esophagitis K21.9 Active 193795275 ALLERGIES No Information ENCOUNTERS Encounter Location Date Diagnosis [facility] [address] [facility] [id number] [address] [place] [phone] Dec, [facility] [address] [facility] [id number] [address] [place] [phone] Oct, Type 1 diabetes mellitus wit hout complication E10.9 [facility] [address] [facility] [id number] [address] [place] [phone] Oct, Gastroesophageal reflux dise ase without esophagitis K21.9 [facility] [address] [facility] [id number] [address] [place] [phone] September, Type 1 diabetes mellitus wit hout complication E10.9 [facility] [address] [facility] [id number] [address] [place] [phone] September, [facility] [address] [facility] [id number] [address] [place] [phone] Aug, [facility] [address] [facility] [id number] [address] [place] [phone] Aug, Type 1 diabetes mellitus wit hout complication E10.9 [place] [address] [facility] [id number] [address] [place] [phone] Jul, Type 1 diabetes mellitus wit hout complication E10.9 [facility] [address] [facility] [id number] [address] [place] [phone] Jul, [facility] [address] [facility] [id number] [address] [place] [phone] Jul, [facility] [address] [facility] [id number] [address] [place] [phone] Jun, [facility] [address] [facility] [id number] [address] [place] [phone] Jun, [facility] [address] [place] [id number] [place] [phone] Jun, Type 1 diabetes mellitus wit hout complication E10.9 [facility] [address] [address] May, Type 1 diabetes mellitus wit hout complication E10.9 [facility] [address] [place] [id number] [address] [place] [phone] May, [facility] [address] [place] [id number] [address] [place] [phone] May, Type 1 diabetes mellitus wit hout complication E10.9 [facility] [address] [place] [id number] [address] [place] [phone] May, Type 1 diabetes mellitus wit hout complication E10.9 ; Acquired hypothyroidism E03.9 ; Gastroesophageal reflux disease without esophagitis K21.9 ; Essential hypertension I10 ; Long-term use of high-risk medication Z79.899 ; Screening for colon cancer Z12.11 and Frequency of urination R35.0 [facility] [address] [place] [id number] [address] [place] [phone] Apr, [facility] [address] [place] [id number] [address] [place] [phone] Mar, [facility] [address] [id number] [address] [place] [phone] Mar, [facility] [address] [id number] [address] [place] [phone] Dec, [facility] [address] [id number] [address] [place] [phone] Dec, [facility] [address] [id number] [address] [place] [phone] Dec, Type 1 diabetes mellitus wit hout complication E10.9 [facility] [address] [id number] [address] [place] [address], [place] [address] Nov, [facility] [address] [id number] [address] [place] [phone] Nov, [facility] [address] [id number] [address] [place] [address] Nov, Type 1 diabetes mellitus wit hout complication E10.9 [facility] [address] [id number] [address] [place] [phone] Nov, [facility] [address] [id number] [address] [place] [phone] Nov, Type 1 diabetes mellitus wit hout complication E10.9 [facility] [address] [id number] [address] [place] [phone] Nov, [facility] [address] [id number] [address] [place] [phone] Nov, [facility] [address] [id number] [address] [place] [phone] Nov, [facility] [address] [id number] [address] [place] [phone] Nov, Type 1 diabetes mellitus wit hout complication E10.9 ; Acquired hypothyroidism E03.9 ; Gastroesophageal reflux disease without esophagitis K21.9 ; Screening cholesterol level Z13.220 ; Essential hypertension I10 and Khadra onychomycosis B37.2 [facility] [address] [id number] [address] [place] [phone] 28 Oct, 2016 Type 1 diabetes mellitus wit hout complication E10.9 [facility] [address] [id number] [address] [place] [phone] 19 Oct, 2016 [facility] [address] [facility] [id number] [address] [place] [phone] 05 Oct, 2016 [facility] [address] [id number] [address] [place] [phone] September, [facility] [address] [id number] [address] [place] [phone] Aug, [facility] [address] [id number] [address] [place] [phone] Jul, [facility] [address] [id number] [address] [place] [phone] Jul, [facility] [address] [id number] [address] [place] [phone] Jul, [facility] [address] [id number] [address] [place] [phone] Jul, [facility] [address] [facility] [id number] [address] [place] [phone] Jul, Type 1 diabetes mellitus wit hout complication E10.9 ; Acquired hypothyroidism E03.9 ; Gastroesophageal reflux disease without esophagitis K21.9 ; Khadra onychomycosis B37.2 and Essential hypertension I10 [facility] [address] [id number] [address] [place] [phone] 14 Jul, [facility] [address] [place] [id number] Jul, [facility] [address] [id number] [address] [place] [phone] Jun, [facility] [address] [facility] [id number] [address] [place] [phone] Jun, Acquired hypothyroidism E03. 9 ; Gastroesophageal reflux disease without esophagitis K21.9 and Type 1 diabetes mellitus without complication E10.9 [facility] [address] [facility] [id number] [address] [place] [phone] Jun, [facility] [address] [facility] [id number] [address] [place] [phone] Jun, [place] [address] [facility] [id number] [address] [place] [phone] Jun, Type 1 diabetes mellitus wit hout complication E10.9 ; Acquired hypothyroidism E03.9 ; Gastroesophageal reflux disease without esophagitis K21.9 and Screening cholesterol level Z13.220 [place] [address] [facility] [id number] [address] [place] [phone] Jun, IMMUNIZATIONS No Known Immunizations SOCIAL HISTORY Never Assessed REASON FOR VISIT BS mgnt PLAN OF CARE VITAL SIGNS MEDICATIONS Medication Instructions Dosage Frequency Start Date End Date Duration S tatus NovoLog 100 UNIT/ML Subcutaneous before breakfast and lunch 5 units Active Tresiba FlexTouch 200 UNIT/ML Subcutaneous at bedtime Inject 10 uni ts May, Active RESULTS No Results PROCEDURES No Known [...]
--- OUTSIDE RECORDS SUMMARY | 2019-05-16 03:04 | XMS REPORT ---
Author Author Ignacio Cisneros Organization [facility] Address [address] [place] [address] Care Team Providers Care Atmospheric Sciences Professor Name Role Phone MICHAELA Cisneros Unavailable PROBLEMS Type Condition ICD9-CM Code MSV58-OO Code Onset Dates Condition S tatus SNOMED Code Problem Long-term use of high-risk medication Z79.899 Active 336420291 Problem Essential hypertension I10 Active 75887388 Problem Type 1 diabetes mellitus without complication E10. 9 Active 913556296 Problem Acquired hypothyroidism E03.9 Active 380136858 Problem Gastroesophageal reflux disease without esophagitis K21.9 Active 461021643 ALLERGIES No Information ENCOUNTERS Encounter Location Date Diagnosis [facility] [address] [facility] [id number] [address] [place] [phone] Aug, [facility] [address] [facility] [id number] [address] [place] [phone] Jul, Type 1 diabetes mellitus wit hout complication E10.9 [facility] [address] [facility] [id number] [address] [place] [phone] Jul, [facility] [address] [facility] [id number] [address] [place] [phone] Jul, [facility] [address] [facility] [id number] [address] [place] [phone] Jun, [facility] [address] [facility] [id number] [address] [place] [phone] Jun, [facility] [address] [facility] [id number] [address] [place] [phone] Jun, Type 1 diabetes mellitus wit hout complication E10.9 [facility] [address] [place] [id number] [address] [place] [phone] May, Type 1 diabetes mellitus wit hout complication E10.9 [facility] [address] [facility] [id number] [address] [place] [phone] May, [facility] [address] [facility] [id number] [address] [place] [phone] May, Type 1 diabetes mellitus wit hout complication E10.9 [facility] [address] [facility] [id number] [address] [place] [phone] May, Type 1 diabetes mellitus wit hout complication E10.9 ; Acquired hypothyroidism E03.9 ; Gastroesophageal reflux disease without esophagitis K21.9 ; Essential hypertension I10 ; Long-term use of high-risk medication Z79.899 ; Screening for colon cancer Z12.11 and Frequency of urination R35.0 [facility] [address] [facility] [id number] [address] [place] [phone] Apr, [facility] [address] [facility] [id number] [address] [place] [phone] Mar, [facility] [address] [facility] [id number] [address] [place] [phone] Mar, [facility] [address] [facility] [id number] [address] [place] [phone] Dec, [facility] [address] [facility] [id number] [address] [place] [phone] Dec, [facility] [address] [facility] [id number] [address] [place] [phone] Dec, Type 1 diabetes mellitus wit hout complication E10.9 [facility] [address] [facility] [id number] [address] [place] [phone] Nov, [facility] [address] [facility] [id number] [address] [place] [phone] Nov, [facility] [address] [facility] [id number] [address] [place] [phone] Nov, Type 1 diabetes mellitus wit hout complication E10.9 [facility] [address] [id number] [address] [place] [phone] Nov, [facility] [address] [id number] [address] [place] [phone] Nov, Type 1 diabetes mellitus wit hout complication E10.9 [facility] [address] [facility] [id number] [address] [place] [phone] Nov, [facility] [address] [id number] [address] [place] [phone] Nov, [facility] [address] [facility] [id number] [address] [place] [phone] Nov, [facility] [address] [facility] [id number] [address] [place] [id number] Nov, Type 1 diabetes mellitus wit hout complication E10.9 ; Acquired hypothyroidism E03.9 ; Gastroesophageal reflux disease without esophagitis K21.9 ; Screening cholesterol level Z13.220 ; Essential hypertension I10 and Khadra onychomycosis B37.2 [facility] [address] [id number] [address] [place] [phone] Oct, Type 1 diabetes mellitus wit hout complication E10.9 [facility] [address] [facility] [id number] [address] [place] [phone] Oct, [facility] [address] [facility] [id number] [address] [place] [phone] Oct, [facility] [address] [id number] [address] [place] [id number] September, [facility] [address] [facility] [id number] [address] [place] [phone] Aug, [facility] [address] [facility] [id number] [address] [place] [phone] Jul, [facility] [address] [facility] [id number] [address] [place] [phone] Jul, [place] [id number] [place] [phone] Jul, [place] [address] [phone] Jul, [place] [address] [place] [phone] Jul, Type 1 diabetes mellitus wit hout complication E10.9 ; Acquired hypothyroidism E03.9 ; Gastroesophageal reflux disease without esophagitis K21.9 ; Khadra onychomycosis B37.2 and Essential hypertension I10 [place] [address] [phone] Jul, [facility] [place] [address] [place] [id number] Jul, [place] [address] [place] [id number] [address] [place] [phone] Jun, [place] [address] [place] [id number] [address] [place] [phone] Jun, Acquired hypothyroidism E03. 9 ; Gastroesophageal reflux disease without esophagitis K21.9 and Type 1 diabetes mellitus without complication E10.9 [place] [id number] [place] [phone] Jun, [place] [address] [place] [id number] [address] [place] [phone] Jun, [place] [id number] [place] [phone] Jun, Type 1 diabetes mellitus wit hout complication E10.9 ; Acquired hypothyroidism E03.9 ; Gastroesophageal reflux disease without esophagitis K21.9 and Screening cholesterol level Z13.220 [place] [id number] [place] [phone] 13 Jun, 2016 IMMUNIZATIONS No Known Immunizations SOCIAL HISTORY Never Assessed REASON FOR VISIT Medications PLAN OF CARE VITAL SIGNS MEDICATIONS Unknown [...]
--- OUTSIDE RECORDS SUMMARY | 2019-05-16 03:04 | XMS REPORT ---
Author Author Ignacio CANAS Organization [facility] Address [address] [place] [address] Care Team Providers Care Memorial Designer Name Role Phone GONZÁLEZBlaine ELVIS Unavailable PROBLEMS Type Condition ICD9-CM Code RNF52-HW Code Onset Dates Condition S tatus SNOMED Code Problem Long-term use of high-risk medication Z79.899 Active 515356020 Problem Essential hypertension I10 Active 91525559 Problem Type 1 diabetes mellitus without complication E10. 9 Active 180221220 Problem Acquired hypothyroidism E03.9 Active 417783168 Problem Gastroesophageal reflux disease without esophagitis K21.9 Active 105386623 ALLERGIES Substance Reaction Event Type Date Status Codeine Phosphate Unknown Drug Allergy May, Active ENCOUNTERS Encounter Location Date Diagnosis [facility] [address] [place] [id number] [address] [place] [phone] Dec, [facility] [address] [facility] [id number] [address] [place] [phone] Oct, Type 1 diabetes mellitus wit hout complication E10.9 [facility] [address] [facility] [id number] [address] [place] [phone] 13 Oct, 2017 Gastroesophageal reflux dise ase without esophagitis K21.9 [facility] [address] [facility] [id number] [address] [place] [phone] September, Type 1 diabetes mellitus wit hout complication E10.9 [facility] [address] [facility] [id number] [address] [place] [phone] September, [facility] [address] [facility] [id number] [address] [place] [phone] Aug, [facility] [address] [facility] [id number] [address] [place] [phone] Aug, Type 1 diabetes mellitus wit hout complication E10.9 [facility] [address] [facility] [id number] [address] [place] [phone] Jul, Type 1 diabetes mellitus wit hout complication E10.9 [facility] [address] [facility] [id number] [address] [place] [phone] Jul, [facility] [address] [facility] [id number] [address] [place] [phone] Jul, [facility] [address] [facility] [id number] [address] [place] [phone] Jun, [facility] [address] [facility] [id number] [place] [phone] Jun, [facility] [address] [facility] [id number] [address] [place] [phone] Jun, Type 1 diabetes mellitus wit hout complication E10.9 [facility] [address] [place] [id number] [address] [place] [phone] May, Type 1 diabetes mellitus wit hout complication E10.9 [facility] [address] [id number] [address] [place] [address] May, [facility] [address] [facility] [id number] [address] [place] [phone] May, Type 1 diabetes mellitus wit hout complication E10.9 [facility] [address] [facility] [id number] [address] [place] [address] May, Type 1 diabetes mellitus wit hout complication E10.9 ; Acquired hypothyroidism E03.9 ; Gastroesophageal reflux disease without esophagitis K21.9 ; Essential hypertension I10 ; Long-term use of high-risk medication Z79.899 ; Screening for colon cancer Z12.11 and Frequency of urination R35.0 [facility] [address] [facility] [id number] [address] [place] [phone] Apr, [facility] [address] [place] [address] [id number] [address] [place] [phone] Mar, [facility] [address] [id number] [address] [place] [phone] Mar, [facility] [address] [id number] [address] [place] [phone] Dec, [facility] [address] [id number] [address] [place] [phone] Dec, [facility] [address] [id number] [address] [place] [phone] Dec, Type 1 diabetes mellitus wit hout complication E10.9 [facility] [address] [id number] [address] [place] [address] Nov, [facility] [address] [id number] [address] [place] [address] Nov, [facility] [address] [id number] [address] [place] [phone] Nov, Type 1 diabetes mellitus wit hout complication E10.9 [facility] [address] [id number] [address] [place] [phone] Nov, [facility] [address] [id number] [address] [place] [phone] Nov, Type 1 diabetes mellitus wit hout complication E10.9 [facility] [address] [id number] [address] [place] [phone] Nov, [facility] [address] [id number] [address] [place] [phone] Nov, [facility] [address] [id number] [address] [place] [phone] Nov, [facility] [address] [facility] [id number] [address] [place] [address] Nov, Type 1 diabetes mellitus wit hout complication E10.9 ; Acquired hypothyroidism E03.9 ; Gastroesophageal reflux disease without esophagitis K21.9 ; Screening cholesterol level Z13.220 ; Essential hypertension I10 and Khadra onychomycosis B37.2 [facility] [address] [id number] [address] [place] [phone] 28 Oct, 2016 Type 1 diabetes mellitus wit hout complication E10.9 [facility] [address] [id number] [address] [place] [phone] Oct, [facility] [address] [id number] [address] [place] [phone] Oct, [facility] [address] [id number] [address] [place] [phone] September, [facility] [address] [id number] [address] [place] [id number] Aug, [facility] [address] [id number] [address] [place] [phone] Jul, [facility] [address] [id number] [address] [place] [phone] Jul, [facility] [address] [id number] [address] [place] [phone] Jul, [facility] [address] [id number] [address] [place] [phone] Jul, [facility] [address] [id number] [address] [place] [phone] Jul, Type 1 diabetes mellitus wit hout complication E10.9 ; Acquired hypothyroidism E03.9 ; Gastroesophageal reflux disease without esophagitis K21.9 ; Khadra onychomycosis B37.2 and Essential hypertension I10 [facility] [address] [id number] [address] [place] [phone] 14 Jul, 2016 [place] [address] [place] [id number] Jul, [facility] [address] [id number] [address] [place] [phone] Jun, [facility] [address] [facility] [id number] [address] [place] [phone] Jun, Acquired hypothyroidism E03. 9 ; Gastroesophageal reflux disease without esophagitis K21.9 and Type 1 diabetes mellitus without complication E10.9 [place] [address] [facility] [id number] [address] [place] [phone] Jun, [place] [address] [facility] [id number] [address] [place] [phone] Jun, [place] [id number] [place] [id number] 15 Jun, 2016 Type 1 diabetes mellitus wit hout complication E10.9 ; Acquired hypothyroidism E03.9 ; Gastroesophageal reflux disease without esophagitis K21.9 and Screening cholesterol level Z13.220 [place] [address] [facility] [id number] [address] [place] [phone] Jun, IMMUNIZATIONS No Known Immunizations SOCIAL HISTORY Never Assessed REASON FOR VISIT Diabetes f/u-Pilar, Pt used to see Courtney, states a couple months ago he had a low blood sugar episode, states he had woke up from unconciousness, saw a in [facility], saw Dr. Modi nurse practitioner, started pt on pantoprazole, Jitendra is was wanting to start pt on tresiba, pt states he would like to meet [facility] jitendra again if possible PLAN OF CARE Activity Details Follow Up 3 months or as indicated by lab Reason:DM Pending Test CMP (OUTSIDE LAB) Pending Test LIPID (OUTSIDE LAB) Pending Test TSH (OUTSIDE LAB) Pending Test PSA (FREE AND TOTAL) VITAL SIGNS Height 70 in 2017-06-08 Weight 200.4 lbs 2017-06-08 Temperature 98.8 degrees Fahrenheit 2017-06-08 Heart Rate 66 bpm 2017-06-08 Respiratory Rate 20 2017-06-08 BMI 28.75 kg/m2 2017-06-08 Blood pressure systolic 144 mmHg 2017-06-08 Blood pressure diastolic 62 mmHg 2017-06-08 MEDICATIONS Medication Instructions Dosage Frequency Start Date End Date Duration S tatus Insulin Syringe-Needle U-100 31G X 1/4" 0.3 ML subcutaneousl y 4 times a day as directed 6h Oct, Active Lisinopril 10 mg Orally Once a day 1 tablet 24h 30 Active Protonix 40 MG Orally Once a day 1 capsule 24h 30 Active Dex4 Glucose Go-Pouch 15 GM/33GM Orally as needed for hypoglycem ia as directed May, Active ReliOn Prime Test - In Vitro 3 times a day as directed 8h Nov, 017 Active ReliOn Blood Glucose Test - In Vitro 3 times a day as directed 8h Oct, Active NovoLog 100 UNIT/ML Subcutaneous 3 times a day before meals 5 units Active Levothyroxine Sodium 200 MCG Orally Once a day 1 tablet on an empty stomach in the morning 24h Active RESULTS Name Result Date Reference Range A1C (IN HOUSE) 2017-06-08 A1C IN HOUSE 8.8 4.3 - 5.6 % Previous A1c 9.1 Lot [id number] Exp date 02/2019 PROCEDURES Procedure Date Ordered Result Body Site [facility] VISIT ESTABLISHED PATIENT Jun 08, 2017 GLYCATED HEMOGLOBIN TEST Jun 08, 2017 INSTRUCTIONS MEDICATIONS ADMINISTERED No Known Medications [...]
--- OUTSIDE RECORDS SUMMARY | 2019-05-16 03:04 | XMS REPORT ---
Author Author Ignacio Cisneros Organization [facility] Address [address] [place] [address] Care Team Providers Care Vehicle Assembler Name Role Phone MICHAELA Cisneros Unavailable PROBLEMS Type Condition ICD9-CM Code SIE62-QA Code Onset Dates Condition S tatus SNOMED Code Problem Long-term use of high-risk medication Z79.899 Active 280699102 Problem Essential hypertension I10 Active 29359720 Problem Type 1 diabetes mellitus without complication E10. 9 Active 593935465 Problem Acquired hypothyroidism E03.9 Active 595736379 Problem Gastroesophageal reflux disease without esophagitis K21.9 Active 895638307 ALLERGIES No Information ENCOUNTERS Encounter Location Date Diagnosis [facility] [address] [facility] [id number] [address] [place] [phone] Aug, [facility] [address] [facility] [id number] [address] [place] [address] Jul, Type 1 diabetes mellitus wit hout complication E10.9 [facility] [address] [facility] [id number] [address] [place] [phone] Jul, [facility] [address] [facility] [id number] [address] [place] [phone] Jul, [facility] [address] [facility] [id number] [address] [place] [address] Jun, [facility] [address] [facility] [id number] [address] [place] [phone] Jun, [facility] [address] [facility] [id number] [address] [place] [phone] Jun, Type 1 diabetes mellitus wit hout complication E10.9 [facility] [address] [place] [id number] [address] [place] [phone] May, Type 1 diabetes mellitus wit hout complication E10.9 [facility] [address] [facility] [id number] [address] [place] [phone] May, [facility] [address] [facility] [id number] [address] [place] [address] May, Type 1 diabetes mellitus wit hout complication E10.9 [facility] [address] [facility] [id number] [address] [place] [address] May, Type 1 diabetes mellitus wit hout complication E10.9 ; Acquired hypothyroidism E03.9 ; Gastroesophageal reflux disease without esophagitis K21.9 ; Essential hypertension I10 ; Long-term use of high-risk medication Z79.899 ; Screening for colon cancer Z12.11 and Frequency of urination R35.0 [facility] [address] [facility] [id number] [address] [place] [address] Apr, [facility] [address] [facility] [id number] [address] [place] [phone] Mar, [facility] [address] [facility] [id number] [address] [place] [phone] Mar, [facility] [address] [facility] [id number] [address] [place] [address] Dec, [facility] [address] [facility] [id number] [address] [place] [phone] Dec, [facility] [address] [facility] [id number] [address] [place] [phone] Dec, Type 1 diabetes mellitus wit hout complication E10.9 [facility] [address] [facility] [id number] [address] [place] [phone] Nov, [facility] [address] [facility] [id number] [address] [place] [phone] Nov, [facility] [address] [facility] [id number] [address] [place] [address] Nov, Type 1 diabetes mellitus wit hout complication E10.9 [facility] [address] [id number] [address] [place] [phone] Nov, [facility] [address] [id number] [address] [place] [id number] Nov, Type 1 diabetes mellitus wit hout complication E10.9 [facility] [address] [facility] [id number] [address] [place] [address] Nov, [facility] [address] [id number] [address] [place] [address] Nov, [facility] [address] [facility] [id number] [address] [place] [phone] Nov, [facility] [address] [facility] [id number] [address] [place] [address] Nov, Type 1 diabetes mellitus wit hout complication E10.9 ; Acquired hypothyroidism E03.9 ; Gastroesophageal reflux disease without esophagitis K21.9 ; Screening cholesterol level Z13.220 ; Essential hypertension I10 and Khadra onychomycosis B37.2 [facility] [address] [id number] [address] [place] [address] Oct, Type 1 diabetes mellitus wit hout complication E10.9 [facility] [address] [facility] [id number] [address] [place] [phone] Oct, [facility] [address] [facility] [id number] [address] [place] [address] Oct, [facility] [address] [id number] [address] [place] [address] September, [facility] [address] [facility] [id number] [address] [place] [phone] Aug, [facility] [address] [facility] [id number] [address] [place] [address] Jul, [facility] [address] [facility] [id number] [address] [place] [address] Jul, [place] [id number] [place] [address] Jul, [place] [address] [address] Jul, [place] [id number] [place] [address] Jul, Type 1 diabetes mellitus wit hout complication E10.9 ; Acquired hypothyroidism E03.9 ; Gastroesophageal reflux disease without esophagitis K21.9 ; Khadra onychomycosis B37.2 and Essential hypertension I10 [place] [address] [address] Jul, [place] [place] [address] [place] [id number] Jul, [place] [address] [place] [id number] [address] [place] [address] Jun, [place] [address] [place] [id number] [address] [place] [address] Jun, Acquired hypothyroidism E03. 9 ; Gastroesophageal reflux disease without esophagitis K21.9 and Type 1 diabetes mellitus without complication E10.9 [place] [id number] [place] [address] Jun, [place] [address] [place] [id number] [address] [place] [address] Jun, [place] [id number] [place] [address] Jun, Type 1 diabetes mellitus wit hout complication E10.9 ; Acquired hypothyroidism E03.9 ; Gastroesophageal reflux disease without esophagitis K21.9 and Screening cholesterol level Z13.220 [place] [id number] [place] [address] 13 Jun, 2016 IMMUNIZATIONS No Known Immunizations SOCIAL HISTORY Never Assessed REASON FOR VISIT high BS PLAN OF CARE VITAL SIGNS MEDICATIONS Unknown [...]
--- OUTSIDE RECORDS SUMMARY | 2019-05-16 03:04 | XMS REPORT ---
Author Author Ignacio TURNER Organization [facility] Address [address] [place] [address] Care Team Providers Care Tool Room Lathe Operator Name Role Phone MICHAELA TURNER Unavailable PROBLEMS Type Condition ICD9-CM Code PDC33-VT Code Onset Dates Condition S tatus SNOMED Code Problem Essential hypertension I10 Active 88713105 Problem Gastroesophageal reflux disease without esophagitis K21.9 Active 933654063 Problem Acquired hypothyroidism E03.9 Active 913523600 Problem Type 1 diabetes mellitus without complication E10. 9 Active 560774558 Problem Screening cholesterol level Z13.220 Ac tive 331009353 ALLERGIES No Information SOCIAL HISTORY Never Assessed [...]
--- OUTSIDE RECORDS SUMMARY | 2019-05-16 03:04 | XMS REPORT ---
Author Author Ignacio TURNER Organization [facility] Address [address] [place] [address] Care Team Providers Care Armor Reconnaissance Vehicle Driver Name Role Phone MICHAELA TURNER Unavailable PROBLEMS Type Condition ICD9-CM Code LXC63-SK Code Onset Dates Condition S tatus SNOMED Code Problem Essential hypertension I10 Active 40074646 Problem Gastroesophageal reflux disease without esophagitis K21.9 Active 650039643 Problem Acquired hypothyroidism E03.9 Active 164887659 Problem Type 1 diabetes mellitus without complication E10. 9 Active 261319909 Problem Screening cholesterol level Z13.220 Ac tive 229899832 ALLERGIES No Information SOCIAL HISTORY Never Assessed [...]
--- OUTSIDE RECORDS SUMMARY | 2019-05-16 03:04 | XMS REPORT ---
Author Author Ignacio TURNER Organization [facility] Address [address] [place] [address] Care Team Providers Care Die Storage Clerk Name Role Phone MICHAELA TURNER Unavailable PROBLEMS Type Condition ICD9-CM Code SRA42-CM Code Onset Dates Condition S tatus SNOMED Code Problem Essential hypertension I10 Active 33149973 Problem Gastroesophageal reflux disease without esophagitis K21.9 Active 150939205 Problem Acquired hypothyroidism E03.9 Active 114646001 Problem Type 1 diabetes mellitus without complication E10. 9 Active 580222161 Problem Screening cholesterol level Z13.220 Ac tive 435799748 ALLERGIES No Information SOCIAL HISTORY Never Assessed PLAN OF CARE VITAL SIGNS MEDICATIONS Medication Instructions Dosage Frequency Start Date End Date Duration S tatus NovoLog 100 UNIT/ML ICD10 E10.9- 3 month supply 3 times a da y before meals 5 units Jul, Active Levemir 100 UNIT/ML ICD10- E10.9 2 times a day- 3 month supp ly 8 units AM and PM Jul, Active RESULTS No Results PROCEDURES No Known procedures IMMUNIZATIONS No Known Immunizations MEDICAL (GENERAL) HISTORY Type Description Date Medical History thyroid disorder Medical History type I diabetes Medical History acid reflux Medical History spinal menningitis Surgical History appendectomy 2016 Surgical History hernia repair at age 14 Hospitalization History Surgery(s) only Hospitalization History spinal menningitis
--- OUTSIDE RECORDS SUMMARY | 2019-05-16 03:04 | XMS REPORT ---
Author Author Ignacio Cisneros Organization [facility] Address [address] [place] [address] Care Team Providers Care Customer Service Administrator Name Role Phone MICHAELA Cisneros Unavailable PROBLEMS Type Condition ICD9-CM Code NEP04-RC Code Onset Dates Condition S tatus SNOMED Code Problem Long-term use of high-risk medication Z79.899 Active 881733960 Problem Essential hypertension I10 Active 15631447 Problem Type 1 diabetes mellitus without complication E10. 9 Active 605182970 Problem Acquired hypothyroidism E03.9 Active 119211511 Problem Gastroesophageal reflux disease without esophagitis K21.9 Active 603632753 ALLERGIES No Information ENCOUNTERS Encounter Location Date Diagnosis [facility] [address] [facility] [id number] [address] [place] [phone] Aug, [facility] [address] [facility] [id number] [address] [place] [phone] Aug, Type 1 diabetes mellitus wit hout complication E10.9 [facility] [address] [facility] [id number] [address] [place] [address] Jul, Type 1 diabetes mellitus wit hout complication E10.9 [facility] [address] [facility] [id number] [address] [place] [address] Jul, [facility] [address] [facility] [id number] [address] [place] [address] Jul, [facility] [address] [facility] [id number] [address] [place] [phone] Jun, [facility] [address] [facility] [id number] [address] [place] [phone] Jun, [facility] [address] [facility] [id number] [address] [place] [address] Jun, Type 1 diabetes mellitus wit hout complication E10.9 [facility] [address] [facility] [id number] [address] [place] [address] May, Type 1 diabetes mellitus wit hout complication E10.9 [facility] [address] [place] [id number] [address] [place] [address] May, [facility] [address] [place] [id number] [address] [place] [phone] May, Type 1 diabetes mellitus wit hout complication E10.9 [facility] [address] [place] [id number] [address] [place] [address] May, Type 1 diabetes mellitus wit hout complication E10.9 ; Acquired hypothyroidism E03.9 ; Gastroesophageal reflux disease without esophagitis K21.9 ; Essential hypertension I10 ; Long-term use of high-risk medication Z79.899 ; Screening for colon cancer Z12.11 and Frequency of urination R35.0 [facility] [address] [facility] [id number] [address] [place] [address] Apr, [facility] [address] [place] [id number] [address] [place] [phone] Mar, [facility] [address] [place] [id number] [address] [place] [phone] Mar, [facility] [address] [facility] [id number] [address] [place] [phone] Dec, [facility] [address] [facility] [id number] [address] [place] [id number] Dec, [facility] [address] [place] [id number] [address] [place] [phone] Dec, Type 1 diabetes mellitus wit hout complication E10.9 [facility] [address] [facility] [id number] [address] [place] [phone] Nov, [facility] [address] [place] [id number] [address] [place] [address] Nov, [facility] [address] [id number] [address] [place] [address] Nov, Type 1 diabetes mellitus wit hout complication E10.9 [facility] [address] [id number] [address] [place] [phone] Nov, [facility] [address] [id number] [address] [place] [address] Nov, Type 1 diabetes mellitus wit hout complication E10.9 [facility] [address] [id number] [address] [place] [address] Nov, [facility] [address] [id number] [address] [place] [address] Nov, [facility] [address] [facility] [id number] [address] [place] [address] Nov, [facility] [address] [id number] [address] [place] [address] Nov, Type 1 diabetes mellitus wit hout complication E10.9 ; Acquired hypothyroidism E03.9 ; Gastroesophageal reflux disease without esophagitis K21.9 ; Screening cholesterol level Z13.220 ; Essential hypertension I10 and Khadra onychomycosis B37.2 [facility] [address] [id number] [address] [place] [phone] Oct, Type 1 diabetes mellitus wit hout complication E10.9 [facility] [address] [id number] [address] [place] [phone] Oct, [facility] [address] [id number] [address] [place] [address] Oct, [facility] [address] [id number] [address] [place] [address] September, [facility] [address] [id number] [address] [place] [phone] Aug, [facility] [address] [id number] [address] [place] [address] Jul, [facility] [address] [place] [id number] [address] [place] [address] Jul, [facility] [address] [place] [id number] [address] [place] [address] Jul, [facility] [address] [place] [id number] [address] [place] [address] Jul, [facility] [address] [address] Jul, Type 1 diabetes mellitus wit hout complication E10.9 ; Acquired hypothyroidism E03.9 ; Gastroesophageal reflux disease without esophagitis K21.9 ; Khadra onychomycosis B37.2 and Essential hypertension I10 [place] [address] [place] [id number] [address] [place] [phone] 14 Jul, [address] [place] [place] [id number] Jul, [facility] [id number] [place] [address] Jun, [facility] [address] [place] [id number] [address] [place] [address] Jun, Acquired hypothyroidism E03. 9 ; Gastroesophageal reflux disease without esophagitis K21.9 and Type 1 diabetes mellitus without complication E10.9 [facility] [address] [place] [id number] [address] [place] [address] Jun, [facility] [address] [place] [id number] [address] [place] [address] Jun, [facility] [address] [place] [address] Jun, Type 1 diabetes mellitus wit hout complication E10.9 ; Acquired hypothyroidism E03.9 ; Gastroesophageal reflux disease without esophagitis K21.9 and Screening cholesterol level Z13.220 [facility] [address] [place] [address] Jun, IMMUNIZATIONS No Known Immunizations SOCIAL HISTORY Never Assessed REASON FOR VISIT BS ck attempt PLAN OF CARE VITAL SIGNS MEDICATIONS [...]
--- OUTSIDE RECORDS SUMMARY | 2019-05-16 03:04 | XMS REPORT ---
Author Author Ignacio TURNER Organization [facility] Address [address] [place] [address] Care Team Providers Care Recruitment And Outreach Assistant Name Role Phone MICHAELA TURNER Unavailable PROBLEMS Type Condition ICD9-CM Code [id number]-BO Code Onset Dates Condition S tatus SNOMED Code Problem Essential hypertension I10 Active 25467861 Problem Gastroesophageal reflux disease without esophagitis K21.9 Active 459693733 Problem Acquired hypothyroidism E03.9 Active 748127994 Problem Type 1 diabetes mellitus without complication E10. 9 Active 606167586 Problem Screening cholesterol level Z13.220 Ac tive 799375841 ALLERGIES Substance Reaction Event Type Date Status Codeine Phosphate Unknown Drug Allergy Jun, Active SOCIAL HISTORY Never Assessed PLAN OF CARE VITAL SIGNS MEDICATIONS Medication Instructions Dosage Frequency Start Date End Date Duration S tatus Levothyroxine Sodium 200 MCG Orally Once a day 1 tablet on an empty stomach in the morning 24h Active Novolin R 100 UNIT/ML Injection 3 times a day sliding scale 8h Active Ranitidine HCl 150 MG Orally twice a day 1 capsule 12h Active RESULTS No Results PROCEDURES No Known procedures IMMUNIZATIONS No Known Immunizations MEDICAL (GENERAL) HISTORY Type Description Date Medical History thyroid disorder Medical History type I diabetes Medical History acid reflux Medical History spinal menningitis Surgical History appendectomy 2016 Surgical History hernia repair at age 14 Hospitalization History Surgery(s) only Hospitalization History spinal menningitis
--- OUTSIDE RECORDS SUMMARY | 2019-05-16 03:04 | XMS REPORT ---
Author Author Ignacio TURNER Organization [facility] Address [address] [place] [address] Care Team Providers Care Oil Dispenser Name Role Phone MICHAELA TURNER Unavailable PROBLEMS Type Condition ICD9-CM Code UNX05-ZR Code Onset Dates Condition S tatus SNOMED Code Problem Essential hypertension I10 Active 92239873 Problem Gastroesophageal reflux disease without esophagitis K21.9 Active 665491595 Problem Acquired hypothyroidism E03.9 Active 317255615 Problem Type 1 diabetes mellitus without complication E10. 9 Active 106791377 Problem Screening cholesterol level Z13.220 Ac tive 036089338 ALLERGIES No Information SOCIAL HISTORY Never Assessed [...]
--- OUTSIDE RECORDS SUMMARY | 2019-05-16 03:04 | XMS REPORT ---
Author Author Ignacio SALOMON Organization [facility] Address [address] [place] [address] Care Team Providers Care Manager Mass Name Role Phone SYED SALOMON Unavailable PROBLEMS Type Condition ICD9-CM Code ZYC83-VA Code Onset Dates Condition S tatus SNOMED Code Problem Long-term use of high-risk medication Z79.899 Active 648804146 Problem Essential hypertension I10 Active 55666312 Problem Type 1 diabetes mellitus without complication E10. 9 Active 631253467 Problem Acquired hypothyroidism E03.9 Active 157794394 Problem Gastroesophageal reflux disease without esophagitis K21.9 Active 447376140 ALLERGIES No Information ENCOUNTERS Encounter Location Date Diagnosis [facility] [address] [facility] [id number] [address] [place] [phone] Oct, [facility] [address] [facility] [id number] [address] [place] [phone] September, Type 1 diabetes mellitus wit hout complication E10.9 [facility] [address] [facility] [id number] [address] [place] [phone] September, [facility] [address] [facility] [id number] [address] [place] [address] Aug, [facility] [address] [facility] [id number] [address] [place] [address] Aug, Type 1 diabetes mellitus wit hout complication E10.9 [facility] [address] [facility] [id number] [address] [place] [address] Jul, Type 1 diabetes mellitus wit hout complication E10.9 [facility] [address] [facility] [id number] [address] [place] [phone] Jul, [facility] [address] [facility] [id number] [address] [place] [address] Jul, [facility] [address] [facility] [id number] [address] [place] [address] Jun, [facility] [address] [facility] [id number] [address] [place] [address] Jun, [facility] [address] [facility] [id number] [address] [place] [address] Jun, Type 1 diabetes mellitus wit hout complication E10.9 [facility] [address] [facility] [id number] [address] [place] [phone] May, Type 1 diabetes mellitus wit hout complication E10.9 [facility] [address] [place] [id number] [address] [place] [address] May, [facility] [address] [place] [id number] [place] [address] May, Type 1 diabetes mellitus wit hout complication E10.9 [facility] [address] [place] [id number] [address] [place] [address] May, Type 1 diabetes mellitus wit hout complication E10.9 ; Acquired hypothyroidism E03.9 ; Gastroesophageal reflux disease without esophagitis K21.9 ; Essential hypertension I10 ; Long-term use of high-risk medication Z79.899 ; Screening for colon cancer Z12.11 and Frequency of urination R35.0 [facility] [address] [place] [id number] [address] [place] [address] Apr, [facility] [address] [place] [id number] [address] [place] [phone] Mar, [facility] [address] [address] Mar, [facility] [address] [place] [id number] [address] [place] [address] Dec, [facility] [address] [place] [id number] [address] [place] [address] Dec, [facility] [address] [id number] [address] [place] [address] Dec, Type 1 diabetes mellitus wit hout complication E10.9 [facility] [address] [id number] [address] [place] [address] Nov, [facility] [address] [id number] [address] [place] [address] Nov, [facility] [address] [id number] [address] [place] [address] Nov, Type 1 diabetes mellitus wit hout complication E10.9 [facility] [address] [id number] [address] [place] [phone] Nov, [facility] [address] [id number] [address] [place] [phone] Nov, Type 1 diabetes mellitus wit hout complication E10.9 [facility] [address] [id number] [address] [place] [phone] Nov, [facility] [address] [id number] [address] [place] [phone] Nov, [facility] [address] [facility] [id number] [address] [place] [address] Nov, [facility] [address] [id number] [address] [place] [phone] Nov, Type 1 diabetes mellitus wit hout complication E10.9 ; Acquired hypothyroidism E03.9 ; Gastroesophageal reflux disease without esophagitis K21.9 ; Screening cholesterol level Z13.220 ; Essential hypertension I10 and Khadra onychomycosis B37.2 [facility] [address] [id number] [address] [place] [address] Oct, Type 1 diabetes mellitus wit hout complication E10.9 [facility] [address] [id number] [address] [place] [address] Oct, [facility] [address] [id number] [address] [place] [phone] Oct, [facility] [address] [id number] [address] [place] [phone] September, [facility] [address] [facility] [id number] [address] [place] [id number] Aug, [facility] [address] [id number] [address] [place] [phone] Jul, [facility] [address] [id number] [address] [place] [phone] Jul, [facility] [address] [id number] [address] [place] [phone] Jul, [facility] [address] [facility] [id number] [address] [place] [phone] Jul, [facility] [address] [facility] [id number] [address] [place] [address] Jul, Type 1 diabetes mellitus wit hout complication E10.9 ; Acquired hypothyroidism E03.9 ; Gastroesophageal reflux disease without esophagitis K21.9 ; Khadra onychomycosis B37.2 and Essential hypertension I10 [facility] [address] [facility] [id number] [address] [place] [address] Jul, [place] [address] [place] [id number] Jul, [facility] [address] [facility] [id number] [address] [place] [phone] Jun, [facility] [address] [id number] [address] [place] [address] Jun, Acquired hypothyroidism E03. 9 ; Gastroesophageal reflux disease without esophagitis K21.9 and Type 1 diabetes mellitus without complication E10.9 [facility] [address] [id number] [address] [place] [phone] Jun, [facility] [address] [facility] [id number] [address] [place] [address] Jun, [facility] [address] [facility] [id number] [address] [place] [address] Jun, Type 1 diabetes mellitus wit hout complication E10.9 ; Acquired hypothyroidism E03.9 ; Gastroesophageal reflux disease without esophagitis K21.9 and Screening cholesterol level Z13.220 [facility] [address] [facility] [id number] [address] [place] [phone] Jun, IMMUNIZATIONS No Known Immunizations SOCIAL HISTORY Never Assessed REASON FOR VISIT PLAN OF CARE VITAL SIGNS MEDICATIONS Medication Instructions Dosage Frequency Start Date End Date Duration S tatus NovoLog 100 UNIT/ML Subcutaneous 3 times a day before meals 5 units Active RESULTS No Results PROCEDURES No [...]
== END 2019-04-19 23:02 | disposition left against medical advice (07) ==
LOC: ER FS 20:40
DX: E10.10 Type 1 diabetes mellitus with ketoacidosis without coma (principal); R11.2 Nausea with vomiting, unspecified; R19.7 Diarrhea, unspecified; E86.0 Dehydration; F41.9 Anxiety disorder, unspecified; I10 Essential (primary) hypertension; Z79.4 Long term (current) use of insulin
CPT/HCPCS: 36415; 80053; 80320; 82800; 82962; 83690; 85007; 85027; 96361; 96374

== ENCOUNTER 2019-11-14 11:31 | Observation (INO) | payer MEDICARE, OTHER ==
[~2019-11-14] VITALS: Ht 180.3 cm; Wt 95.3 kg
[~2019-11-14 11:31] MED LIST: ONDA4TAB11 PO
[2019-11-14] MEDS ORDERED: LEVOFLOXACIN 750 MG/150 ML IV 150 ML IV ONE (12:00)
--- NOTE | 2019-11-14 12:02 | ED Integumentary General ---
General Chief Complaint: Skin/Wound Problems Stated Complaint: RT LEG INFECTION Source: patient Exam Limitations: no limitations History of Present Illness Date Seen by Provider: Nov 14, 2019 Time Seen by Provider: 11:50 Initial Comments 69-year-old male presents with right leg infection. States that 2 days ago he had a blister on his right great toe which he opened up with a needle and jacquelin off some bloody fluid. The next morning he developed pain and swelling in his foot and lower leg. 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 Patient has some malaise and chills without documented fever. Denies any other pain, swelling or skin changes. Patient is diabetic. Allergies and Home Medications Allergies Coded Allergies: codeine (Verified Adverse Reaction, Intermediate, 11/14/19) Patient states that he feels "out of his mind and terrible" when taking this medication Home Medications Ondansetron 4 Mg Tab.rapdis, 4 MG PO Q6H PRN for NAUSEA/VOMITING Prescribed by: PEEWEE VILLAVICENCIO on 04/19/19 6021 Patient Home Medication List Home Medication List Reviewed: Yes Review of Systems Review of Systems Constitutional: No dizziness, No fever; malaise; No weakness EENTM: no symptoms reported Respiratory: No cough, No short of breath Cardiovascular: No chest pain; edema (R LE); No palpitations Gastrointestinal: No abdominal pain, No loss of appetite, No nausea, No vomiting Musculoskeletal: No back pain, No joint pain; joint swelling (R knee); No neck pain Skin: see HPI, change in color Past Babdoai-Yejsgg-Okwlxi Hx Past Med/Social Hx: Reviewed Nursing Past Med/Soc Hx Patient Social History Alcohol Use: Denies Use Recreational Drug Use: No Smoking Status: Never a Smoker 2nd Hand Smoke Exposure: No Recent Foreign Travel: No Contact w/Someone Who Travel: No Recent Hopitalizations: No Physical Abuse: No Sexual Abuse: No Mistreated: No Fear: No Seasonal Allergies Seasonal Allergies: No Past Medical History Surgeries: No Respiratory: No Cardiac: Yes Hypertension Neurological: No Genitourinary: No Gastrointestinal: Yes Gastroesophageal Reflux Musculoskeletal: No Endocrine: Yes Diabetes, Insulin dep, Hypothyroidsim HEENT: No Cancer: No Psychosocial: No Integumentary: No Blood Disorders: No Physical Exam Vital Signs Vital Signs - First Documented 11/14/19 11:35 Temp 36.0 Pulse 68 Resp 16 B/P (MAP) 146/72 (96) Pulse Ox 97 O2 Delivery Room Air Capillary Refill : General Appearance: WD/WN, no apparent distress Cardiovascular: regular rate, rhythm, no JVD Respiratory: chest non-tender, lungs clear Gastrointestinal: non tender, soft Extremities: other (R LE: edema of foot, leg and thigh. Erythema of foot, partial leg and anterior knee and mid/ distal thigh. Moderate warmth throughout RLE) Neurologic/Psychiatric: no motor/sensory deficits, normal mood/affect, oriented x 3 Progress/Results/Core Measures Results/Orders Lab Results Laboratory Tests Test 11/14/19 12:00 Range/Units White Blood Count 15.1 H 4.3-11.0 10^3/uL Red Blood Count 4.07 L 4.35-5.85 10^6/uL Hemoglobin 11.7 L 13.3-17.7 G/DL Hematocrit 35 L 40-54 % Mean Corpuscular Volume 87 80-99 FL Mean Corpuscular Hemoglobin 29 25-34 PG Mean Corpuscular Hemoglobin Concent 33 32-36 G/DL Red Cell Distribution Width 13.2 10.0-14.5 % Platelet Count 328 130-400 10^3/uL Mean Platelet Volume 10.9 H 7.4-10.4 FL Neutrophils (%) (Auto) 74 42-75 % Lymphocytes (%) (Auto) 14 12-44 % Monocytes (%) (Auto) 9 0-12 % Eosinophils (%) (Auto) 3 0-10 % Basophils (%) (Auto) 0 0-10 % Neutrophils # (Auto) 11.1 H 1.8-7.8 X 10^3 Lymphocytes # (Auto) 2.2 1.0-4.0 X 10^3 Monocytes # (Auto) 1.3 H 0.0-1.0 X 10^3 Eosinophils # (Auto) 0.5 H 0.0-0.3 10^3/uL Basophils # (Auto) 0.1 0.0-0.1 10^3/uL Neutrophils % (Manual) 57 % Lymphocytes % (Manual) 14 % Monocytes % (Manual) 10 % Eosinophils % (Manual) 5 % Basophils % (Manual) 0 % Band Neutrophils 14 % Blood Morphology Comment NORMAL Sodium Level 134 L 135-145 MMOL/L Potassium Level 3.9 3.6-5.0 MMOL/L Chloride Level 95 L 98-107 MMOL/L Carbon Dioxide Level 22 21-32 MMOL/L Anion Gap 17 H 5-14 MMOL/L Blood Urea Nitrogen 36 H 7-18 MG/DL Creatinine 1.40 H 0.60-1.30 MG/DL Estimat Glomerular Filtration Rate 50 BUN/Creatinine Ratio 26 Glucose Level 162 H 70-105 MG/DL Lactic Acid Level 1.37 0.50-2.00 MMOL/L Calcium Level 8.9 8.5-10.1 MG/DL Corrected Calcium 9.0 8.5-10.1 MG/DL Total Bilirubin 0.3 0.1-1.0 MG/DL Aspartate Amino Transf (AST/SGOT) 17 5-34 U/L Alanine Aminotransferase (ALT/SGPT) 17 0-55 U/L Alkaline Phosphatase 88 40-136 U/L Total Protein 7.0 6.4-8.2 GM/DL Albumin 3.9 3.2-4.5 GM/DL My Orders Orders - ROVENSTINE,BRAYDEN L DO Ed Iv/Invasive Line Start (11/14/19 11:54) Cbc With Automated Diff (11/14/19 11:54) Comprehensive Metabolic Panel (11/14/19 11:54) Blood Culture (11/14/19 11:54) Lactic Acid Analyzer (11/14/19 11:54) Levofloxacin 750 Mg/150 Ml Iv (Levaquin (11/14/19 12:00) Blood Culture (11/14/19 12:11) Manual Differential (11/14/19 12:00) Medications Given in ED Current Medications Medications Dose Ordered Sig/Olivia Route Start Time Stop Time Status Last Admin Dose Admin Levofloxacin/ Dextrose 150 ml @ 100 mls/hr ONCE ONCE IV 11/14/19 12:00 11/14/19 13:29 DC 11/14/19 12:16 100 MLS/HR Vital Signs/I&O 11/14/19 11:35 Temp 36.0 Pulse 68 Resp 16 B/P (MAP) 146/72 (96) Pulse Ox 97 O2 Delivery Room Air Departure Communication (Admissions) Time/Spoke to Admitting Phy: 12:[address] Colón re: admission and she accepts. Explained pt will be arriving by POV as he has to go home to take care of his dogs beforehand. He says his dogs are mean to other people and they don't trust anyone but him. Finishing IV Levaquin and then will depart to home, then to [place] for admission. All parties in agreement with this low risk method of transfer due to patients extenuating need to take care of his dogs. Impression Primary Impression: Cellulitis of right lower extremity Disposition: ADMITTED INPATIENT Condition: Stable Admissions Decision to Admit Reason: Admit from ER (General) Decision to Admit/Date: Nov 14, 2019 Time/Decision to Admit Time: 12:01 Departure-Patient Inst. Referrals: [facility] [place] (PCP) Primary Care Physician YULI NAGEL APRN (Family) Primary Care Physician BRAYDEN DAVIDSON DO Nov 14, 2019 12:02
[2019-11-14 12:23] LABS: HEMATOCRIT 35 % (40-54); HEMOGLOBIN 11.7 G/DL (13.3-17.7); LYMPHOCYTES % (AUTO) 14 % (12-44); MEAN CORPUSCULAR HEMOGLOBIN 29 PG (25-34); MEAN CORPUSCULAR HGB CONC 33 G/DL (32-36); MEAN CORPUSCULAR VOLUME 87 FL (80-99); MEAN PLATELET VOLUME 10.9 FL (7.4-10.4); PLATELET COUNT 328 10^3/uL (130-400); RED CELL DISTRIBUTION WIDTH 13.2 % (10.0-14.5); WHITE BLOOD COUNT 15.1 10^3/uL (4.3-11.0)
[2019-11-14 12:24] LABS: BASOPHILS # (AUTO) 0.1 10^3/uL (0.0-0.1); BASOPHILS % (AUTO) 0 % (0-10); EOSINOPHILS # (AUTO) 0.5 10^3/uL (0.0-0.3); EOSINOPHILS % (AUTO) 3 % (0-10); LYMPHOCYTES # (AUTO) 2.2 X 10^3 (1.0-4.0); MONOCYTES # (AUTO) 1.3 X 10^3 (0.0-1.0); MONOCYTES % (AUTO) 9 % (0-12); NEUTROPHILS # (AUTO) 11.1 X 10^3 (1.8-7.8); NEUTROPHILS % (AUTO) 74 % (42-75)
[2019-11-14 12:40] LABS: ALBUMIN 3.9 GM/DL (3.2-4.5); BILIRUBIN,TOTAL 0.3 MG/DL (0.1-1.0); CALCIUM 8.9 MG/DL (8.5-10.1); CREATININE SERUM 1.4 MG/DL (0.60-1.30); POTASSIUM 3.9 MMOL/L (3.6-5.0)
[2019-11-14 12:52] LABS: BAND NEUTROPHILS 14 %; BASOPHILS % (MANUAL) 0 %; EOSINOPHILS % (MANUAL) 5 %; LYMPHOCYTES % (MANUAL) 14 %; MONOCYTES % (MANUAL) 10 %
[2019-11-14 12:53] LABS: NEUTROPHILS % (MANUAL) 57 %; RBC MORPH NORMAL
--- OUTSIDE RECORDS SUMMARY | 2019-11-14 13:36 | XMS REPORT | Continuity of Care Document ---
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 [place] ISLANDER 78 mL/min/1.73m2 > OR = 60 eGFR [...] by glucometer (mas s/volume) 250 mg/dL 70-110 MICROALBUMIN/CREATININE RATIO, URINE - 0 05/23/19 11:04 CREATININE, RANDOM URINE 36 mg/dL 20-32 0 MICROALBUMIN 6.0 mg/dL See Note: MICROALBUMIN/CREATININE RATIO, RANDOM URINE 167 mcg/mg creat <30 CMP - 05/23/19 11:04 GLUCOSE 497 mg/dL 65-99 UREA NITROGEN (BUN) 23 mg/dL 7-25 CREATININE 1.05 mg/dL 0.70-1.25 eGFR NON-AFR. [place] ISLANDER 73 mL/min/1.73m2 > OR = 60 eGFR 84 mL/min/1.73m2 > OR = 60 BUN/CREATININE RATIO NOT APPLICABLE (calc) 6-22 SODIUM 136 mmol/L 135-146 POTASSIUM 4.7 mmol/L 3.5-5.3 CHLORIDE 101 mmol/L 98-110 CARBON DIOXIDE 24 mmol/L 20-32 CALCIUM 8.9 mg/dL 8.6-10.3 PROTEIN, TOTAL 6.6 g/dL 6.1-8.1 ALBUMIN 4.0 g/dL 3.6-5.1 GLOBULIN 2.6 g/dL (calc) 1.9-3.7 ALBUMIN/GLOBULIN RATIO 1.5 (calc) 1.0-2. 5 BILIRUBIN, TOTAL 0.6 mg/dL 0.2-1.2 ALKALINE PHOSPHATASE 93 U/L 40-115 AST 17 U/L 10-35 ALT 15 U/L 9-46 CBC w/MANUAL DIFF - 05/23/19 11:04 WHITE BLOOD CELL COUNT 11.1 Thousand/uL 3.8-10.8 RED BLOOD CELL COUNT 4.11 Million/uL 4.2 0-5.80 HEMOGLOBIN 11.8 g/dL 13.2-17.1 HEMATOCRIT 36.4 % 38.5-50.0 MCV 88.6 fL 80.0-100.0 MCH 28.7 pg 27.0-33.0 MCHC 32.4 g/dL 32.0-36.0 RDW 13.8 % 11.0-15.0 PLATELET COUNT 294 Thousand/uL 140-400 MPV 11.0 fL 7.5-12.5 ABSOLUTE NEUTROPHILS 7803 cells/uL 1500- 7800 ABSOLUTE MONOCYTES 655 cells/uL 200-950 ABSOLUTE EOSINOPHILS 655 cells/uL 15-500 ABSOLUTE BASOPHILS 111 cells/uL 0-200 NEUTROPHILS 70.3 % NRG LYMPHOCYTES 14.9 % NRG MONOCYTES 5.9 % NRG EOSINOPHILS 5.9 % NRG BASOPHILS 1.0 % NRG ABSOLUTE BAND NEUTROPHILS 222 cells/uL 0 -750 ABSOLUTE LYMPHOCYTES 1654 cells/uL 850-3 900 BAND NEUTROPHILS 2.0 % NRG PLATELET ESTIMATION ADEQUATE ADEQUATE TSH - 05/23/19 11:04 TSH 2.86 mIU/L 0.40-4.50 Complete blood count (CBC) with automate d white blood cell (WBC) differential - 11/14/19 12:00 Blood leukocytes automated count (number/volume) 15.1 10*3/uL 4.3-11.0 Blood erythrocytes automated count (number/volume) 4.07 10*6/uL 4.35-5.85 Venous blood hemoglobin measurement (mass/volume) 11.7 g/dL 13.3-17.7 Blood hematocrit (volume fraction) 35 % 40-54 Automated erythrocyte mean corpuscular volume 87 [ foz_us] 80-99 Automated erythrocyte mean corpuscular h emoglobin (mass per erythrocyte) 29 pg 25-34 Automated erythrocyte mean corpuscular h emoglobin concentration measurement (mass/volume) 33 g/dL 32-36 Automated erythrocyte distribution width ratio 13. 2 % 10.0- 14.5 Automated blood platelet count (count/volume) 328 10*3/uL 130-400 Automated blood platelet mean volume measurement 10.9 [foz_us] 7.4-10.4 Automated blood neutrophils/100 leukocytes 74 % 42-75 Automated blood lymphocytes/100 leukocytes 14 % 12-44 Blood monocytes/100 leukocytes 9 % 0-12 Automated blood eosinophils/100 leukocytes 3 % 0-10 Automated blood basophils/100 leukocytes 0 % 0-10 Blood neutrophils automated count (number/volume) 11.1 10*3 1.8-7.8 Blood lymphocytes automated count (number/volume) 2.2 10*3 1.0-4.0 Blood monocytes automated count (number/volume) 1. 3 10*3 0.0-1.0 Automated eosinophil count 0.5 10*3/uL 0 .0-0.3 Automated blood basophil count (count/volume) 0.1 10*3/uL 0.0-0.1 Blood lactic acid measurement (moles/vol ume) - 11/14/19 12:00 Blood lactic acid measurement (moles/volume) 1.37 mmol/L 0.50-2.00 Comprehensive metabolic panel - 11/14/19 12:00 Serum or plasma sodium measurement (moles/volume) 134 mmol/L 135-145 Serum or plasma potassium measurement (moles/volume) 3.9 mmol/L 3.6-5.0 Serum or plasma chloride measurement (moles/volume) 95 mmol/L 98-107 Carbon dioxide 22 mmol/L 21-32 Serum or plasma anion gap determination (moles/volume) 17 mmol/L 5-14 Serum or plasma urea nitrogen measurement (mass/volume ) 36 mg/dL 7-18 Serum or plasma creatinine measurement (mass/volume) 1.40 mg/dL 0.60-1.30 Serum or plasma urea nitrogen/creatinine mass ratio 26 NRG Serum or plasma creatinine measurement w ith calculation of estimated glomerular filtration rate 50 NRG Serum or plasma glucose measurement (mass/volume) 162 mg/dL 70-105 Serum or plasma calcium measurement (mass/volume) 8.9 mg/dL 8.5-10.1 Serum or plasma total bilirubin measurement (mass/volu me) 0.3 mg/dL 0.1-1.0 Serum or plasma alkaline phosphatase ayah surement (enzymatic activity/volume) 88 U/L 40-136 Serum or plasma aspartate aminotransfera se measurement (enzymatic activity/volume) 17 U/L 5-34 Serum or plasma alanine aminotransferase measurement (enzymatic activity/volume) 17 U/L 0-55 Serum or plasma protein measurement (mass/volume) 7.0 g/dL 6.4-8.2 Serum or plasma albumin measurement (mass/volume) 3.9 g/dL 3.2-4.5 CALCIUM CORRECTED 9.0 mg/dL 8.5-10.1 Encounters ACCT No. Visit Date/Time Discharge Status Pt. Type Provider Facility Loc./Unit Complaint [id number] 11/10/2019 10:50:00 11/10/2019 23:59: 59 CLS Outpatient YULI NAGEL [facility] [id number] 05/23/2019 10:20:00 Document Registration [id number] 11/11/2018 10:50:00 Document Registration [id number] 09/06/2018 11:00:00 Document Registration [id number] 03/08/2018 11:00:00 Document Registration [id number] 09/22/2017 12:40:00 Document Registration [id number] 04/19/2019 20:40:00 019 23:02:00 DIS Emergency SAUD BULL, PEEWEE [facility] ER FS VOMITTING [id number] 11/14/2019 12:25:00 Document Registration
[2019-11-14] MEDS ORDERED: NS IV 1000 ML 1,000 ML IV SCH (15:22)
[2019-11-14] MEDS ORDERED: VANCOMYCIN INJECTION 1,000 MG in NS (IVPB) 250 ML IV SCH (15:30)
[2019-11-14] MEDS ORDERED: HYDROcodone/APAP 5 MG/325 MG (LORTAB) TAB PO PRN (15:30)
[2019-11-14] MEDS ORDERED: DOCUSATE SODIUM 100 MG (COLACE) CAP PO PRN (15:30)
[2019-11-14] MEDS ORDERED: LACTULOSE SYRUP 10GM/15ML (ENULOSE) 30ML UDC PO PRN (15:30)
[2019-11-14] MEDS ORDERED: MELATONIN 3 MG TABLET PO PRN (15:30)
[2019-11-14] MEDS ORDERED: diphenhydrAMINE 25 MG TAB (BENADRYL) PO PRN (15:30)
[2019-11-14] MEDS ORDERED: ONDANSETRON 4 MG/2 ML (SDV) Z0FRAN IVP PRN (15:30)
[2019-11-14] MEDS ORDERED: LOPERAMIDE 2 MG (IMODIUM) TABLET PO PRN (15:30)
[2019-11-14] MEDS ORDERED: ALPRAZolam 0.25 MG (XANAX) TAB PO PRN (15:30)
[2019-11-14] MEDS ORDERED: ACETAMINOPHEN 500 MG TAB (TYLENOL) PO PRN (15:30)
[2019-11-14] MEDS ORDERED: CALCIUM CARBONATE 500 MG (TUMS) TAB.CHEW PO PRN (15:30)
--- NOTE | 2019-11-14 16:06 | NUR ---
CHRISTOPHER CAMEJO admitted to room 410-1, with an admitting diagnosis of CELLULITIS RIGHT LOWER EXTREMITY, on 11/14/19 from [facility] via WHEELCHAIR, accompanied by KENNY GENTILE.CHRISTOPHER WADE introduced to surroundings, call light, bed controls, phone, TV, temperature control, lights, meal times, smoking policy, visitor policy, side rail policy, bathrooms and showers. Patient Rights given to patient in the handbook. CHRISTOPHER CAMEJO verbalizes understanding that [facility] is not responsible for the loss or damage to any personal effects or valuables that are kept in the patients posession during their hospitalization. The following Patient Care Plans were discussed with the PATIENT: Discharge Planning, CELLULITIS and KNOWLEDGE DEFICIT. CHRISTOPHER CAMEJO verbalizes understanding of Interdisciplinary Patient Education. Patient and/or family were informed about the Rapid Response Team and its purpose.
--- NOTE | 2019-11-14 16:09 | NUR ---
CR 1.4; CR CL ~50; WT 96.1 KG; VANCO 2000 MG IV BOLUS THEN 1500 MG IV Q24H; TROUGH AFTER 2ND DOSE
[2019-11-14] MEDS ORDERED: VANCOMYCIN 2000 MG/NS 500 ML IVPB IV NR ×2 (16:15)
[2019-11-14 16:41] VITALS: BP 150/68
--- OUTSIDE RECORDS SUMMARY | 2019-11-14 17:28 | XMS REPORT | Continuity of Care Document ---
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 BELARUSIAN 78 mL/min/1.73m2 > OR = 60 eGFR [...] 7-25 CREATININE 1.05 mg/dL 0.70-1.25 eGFR NON-AFR. BELARUSIAN 73 mL/min/1.73m2 > OR = 60 eGFR [...] g/dL 3.2-4.5 CALCIUM CORRECTED 9.0 mg/dL 8.5-10.1 Manual absolute plasma cell count - 06/04 12:00 Blood monocytes/100 leukocytes 10 % NRG Manual blood segmented neutrophils/100 leukocytes 57 % NRG Blood band neutrophils/100 leukocytes 14 % NRG Manual blood lymphocytes/100 leukocytes 14 % NRG Manual eosinophils/100 leukocytes in nose 5 % NRG Manual blood basophils/100 leukocytes 0 % NRG Blood erythrocyte morphology finding identification NORMAL NRG Encounters ACCT No. Visit Date/Time Discharge Status Pt. Type Provider Facility Loc./Unit Complaint [id number] 11/10/2019 10:50:00 11/10/2019 23:59: 59 [facility] Outpatient YULI NAGEL [facility] IN [facility] [id number] 05/23/2019 10:20:00 Document Registration [id number] 11/11/2018 10:50:00 Document Registration [id number] 09/06/2018 11:00:00 Document Registration [id number] 03/08/2018 11:00:00 Document Registration [id number] 09/22/2017 12:40:00 Document Registration [id number] 04/19/2019 20:40:00 019 23:02:00 DIS Emergency SAUD BULL, PEEWEE [facility] ER FS VOMITTING [id number] 11/14/2019 12:25:00 Document Registration
[2019-11-14] MEDS: ENOXAPARIN 40 MG/0.4 ML (LOVENOX) SYR SC SCH (17:38)
[2019-11-14 19:14] VITALS: BP 133/68
[2019-11-14] MEDS ORDERED: LEVO200T6 PO (20:12)
[2019-11-14] MEDS ORDERED: PANT40TA3 PO (20:12)
[2019-11-14] MEDS ORDERED: AMLO5TAB9 PO (20:12)
[2019-11-14] MEDS ORDERED: amLODIPine 5 MG (NORVASC) TAB PO NR (20:15)
[2019-11-14] MEDS: inSUlin ASPART (NovoLOG) 1 UNIT/0.01 ML (CHARGE PER UNIT) SC SCH (20:48)
[2019-11-14] MEDS: SENNA W/DOCUSATE (SENOKOT S) TABLET PO SCH (20:50)
[2019-11-14] MEDS: NS IV 1000 ML 1,000 ML IV SCH (21:25)
[2019-11-15 00:25] VITALS: BP 177/74
--- NOTE | 2019-11-15 03:05 | NUR ---
PT REPORTS FEELING WARM AND HAVING A HEADACHE, THIS NURSE OFFERED TYLENOL, PT STATES HE TOOK HIS OWN TYLENOL. THIS NURSE EDUCATED PT THAT DURING HIS HOSPITAL STAY HE NEEDS TO NOTIFY THIS NURSE OF ANY CHANGE IN CONDITION, AND NOT TO USE HOME MEDS UNLESS ORDERED. PT STATES UNDERSTANDING
--- NOTE | 2019-11-15 03:10 | NUR ---
PT REPORTS HIS BLOOD SUGAR DEVICE SHOWS HIGH BLOOD SUGAR LEVEL, THIS NURSE DID ACCUCHECK THAT SHOWED BLOOD SUGAR OF [address] FOLEY NOTIFIED, ORDERED TO GIVE 15 UNITS OF NOVOLOG.AND TO USE SSI PRN TO HIS DEVICE IN THE FUTURE.
[2019-11-15] MEDS ORDERED: inSUlin ASPART (NovoLOG) 1 UNIT/0.01 ML (CHARGE PER UNIT) SC ONE (03:15)
[2019-11-15 03:25] VITALS: BP 161/72
[2019-11-15 06:20] LABS: BASOPHILS # (AUTO) 0.1 10^3/uL (0.0-0.1); BASOPHILS % (AUTO) 0 % (0-10); EOSINOPHILS # (AUTO) 0.4 10^3/uL (0.0-0.3); EOSINOPHILS % (AUTO) 2 % (0-10); HEMATOCRIT 35 % (40-54); HEMOGLOBIN 11.3 G/DL (13.3-17.7); LYMPHOCYTES # (AUTO) 1.8 X 10^3 (1.0-4.0); LYMPHOCYTES % (AUTO) 12 % (12-44); MEAN CORPUSCULAR HEMOGLOBIN 29 PG (25-34); MEAN CORPUSCULAR HGB CONC 33 G/DL (32-36); MEAN CORPUSCULAR VOLUME 87 FL (80-99); MEAN PLATELET VOLUME 11.3 FL (7.4-10.4); MONOCYTES % (AUTO) 7 % (0-12); NEUTROPHILS # (AUTO) 11.9 X 10^3 (1.8-7.8); NEUTROPHILS % (AUTO) 79 % (42-75); PLATELET COUNT 328 10^3/uL (130-400); RED CELL DISTRIBUTION WIDTH 13.7 % (10.0-14.5); WHITE BLOOD COUNT 15.1 10^3/uL (4.3-11.0)
--- NOTE | 2019-11-15 06:23 | History & Physical-Hospitalist ---
History of Present Illness HPI/Chief Complaint CC: Right leg cellulitis HPI: This is 69yoWM clinic pt of Laurie Rosales and Dr. 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 who presented to the [facility] ER after he went home after being seen there to feed his dogs then came to the hospital for admission for severe right leg cellulitis. He was placed on Doxycycline and he had failed that, he had seen podiatry for the right great toe ulceration but currently there was an outline of the severe erythema all the way up into his thigh groin area that has significant improved by 70% and currently he is doing well. I did restart his home medication added in the Levemir and regular insulin of 10 units before meals because of his high sugars. Creatinine is 1.44, WC is 15. We will get an ultrasound to make sure this is not a right leg DVT. He has been maintained on Lovenox for DVT prophylaxis in the meantime. Source: patient, RN/MD Exam Limitations: no limitations Date Seen 11/15/19 Time Seen by a Provider: 09:15 Attending Physician Anastasia Foley DO [facility] Referring Physician Date of Admission Nov 14, 2019 at 13:40 Home Medications & Allergies Home Medications Reviewed patient Home Medication Reconciliation performed by pharmacy medication reconciliations technician chemical cleaning and/or nursing. Patients Allergies have been reviewed. Allergies Allergies Coded Allergies codeine (Verified Adverse Reaction, Intermediate, 11/14/19) Patient states that he feels "out of his mind and terrible" when taking this medication Past Kpgscxa-Kvmyib-Apvaku Hx Past Med/Social Hx: Reviewed Nursing Past Med/Soc Hx, Reviewed and Corrections made Patient Social History Employed/Student: employed Alcohol Use: Denies Use Alcohol Beverage of Choice: Beer Recreational Drug Use: No Smoking Status: Light Tobacco Smoker 2nd Hand Smoke Exposure: No Physical Abuse Screen: No Sexual Abuse: No Recent Foreign Travel: No Contact w/other who traveled: No Recent Hopitalizations: No Recent Infectious Disease Expo: No Immunizations Up To Date Date of Pneumonia Vaccine: Feb 13, 2019 Seasonal Allergies Seasonal Allergies: Yes Past Medical History Surgeries: Appendectomy Cardiac: High Cholesterol, Hypertension Neurological: Neuropathy Genitourinary: Renal Failure Gastrointestinal: Gastroesophageal Reflux Musculoskeletal: Arthritis Endocrine: Diabetes, Insulin dep, Hypothyroidsim History of Blood Disorders: No Adverse Reaction to Blood Gonzalez: No Review of Systems Constitutional: see HPI, fever Respiratory: no symptoms reported Cardiovascular: no symptoms reported Musculoskeletal: other (right leg pain) Skin: rash (right leg) Physical Exam Physical Exam Vital Signs Vital Signs - First Documented 11/14/19 11:35 Temp 36.0 Pulse 68 Resp 16 B/P (MAP) 146/72 (96) Pulse Ox 97 O2 Delivery Room Air Capillary Refill : Less Than 3 Seconds Height, Weight, BMI Height: '" Weight: lbs. oz. kg; 29.31 BMI Method: General Appearance: No Apparent Distress, Chronically ill Eyes: Right Eye Normal Inspection, Right Eye PERRL HEENT: PERRL/EOMI, TMs Normal, Normal ENT Inspection, Pharynx Normal, Moist Mucous Membranes Neck: Full Range of Motion, Normal Inspection, Non Tender Respiratory: Chest Non Tender, Lungs Clear, Normal Breath Sounds, No Accessory Muscle Use, No Respiratory Distress Cardiovascular: Regular Rate, Rhythm, No Edema, No Gallop, No JVD, No Murmur, Normal Peripheral Pulses Gastrointestinal: Normal Bowel Sounds, No Organomegaly, No Pulsatile Mass, Non Tender, Soft Back: Normal Inspection, No CVA Tenderness, No Vertebral Tenderness Extremity: Normal Capillary Refill, Normal Inspection, Normal Range of Motion, Non Tender, No Calf Tenderness, No Pedal Edema Neurologic/Psychiatric: Alert, Oriented x3, No Motor/Sensory Deficits, Normal Mood/Affect Skin: Normal Color, Warm/Dry, Rash (right leg erothema much improved) Lymphatic: No Adenopathy Results Results/Procedures Labs Laboratory Tests 11/14/19 12:00 11/15/19 05:17 Patient resulted labs reviewed. Assessment/Plan Admission Diagnosis Assessment: Right leg cellulitis severe in nature required IV antibiotic failed oral antibiotic of doxycycline Right great toe ulcer consulted Dr. Joya Right leg pain ordering ultrasound to rule out DVT DM HTN CRI Plan: IV antibiotics Dr. Joya Ultrasound Lovenox Increase insulin Admission Status: Observation Reason for Inpatient Admission: cellulitis Clinical Quality Measures DVT/VTE Risk/Contraindication: Risk Factor Score Per Nursin RFS Level Per Nursing on Admit: 2=Moderate Contraindications-Mechi: Other *list below* Other: cellulitis legs ANASTASIA FOLEY DO Nov 15, 2019 06:23
[2019-11-15 06:29] LABS: ALBUMIN 3.5 GM/DL (3.2-4.5); POTASSIUM 3.9 MMOL/L (3.6-5.0)
[2019-11-15 06:30] LABS: CALCIUM 8.7 MG/DL (8.5-10.1)
[2019-11-15 06:32] LABS: TOTAL PROTEIN 6.6 GM/DL (6.4-8.2)
[2019-11-15 06:33] LABS: BILIRUBIN,TOTAL 0.4 MG/DL (0.1-1.0)
[2019-11-15 06:35] LABS: CREATININE SERUM 1.44 MG/DL (0.60-1.30)
[2019-11-15] MEDS: inSUlin ASPART (NovoLOG) 1 UNIT/0.01 ML (CHARGE PER UNIT) SC SCH ×4 (06:57→21:00)
[2019-11-15 07:42] VITALS: BP 153/74
[2019-11-15] MEDS: SENNA W/DOCUSATE (SENOKOT S) TABLET PO SCH ×2 (07:48→21:03)
[2019-11-15] MEDS: NS IV 1000 ML 1,000 ML IV SCH (07:48)
[2019-11-15] MEDS ORDERED: NEBI5TAB8 PO (09:23)
[2019-11-15] MEDS ORDERED: MAGN400T39 PO (09:23)
[2019-11-15] MEDS ORDERED: DOXY100T31 PO (09:23)
[2019-11-15] MEDS ORDERED: MELO15TA39 PO (09:23)
[2019-11-15] MEDS ORDERED: LISI40TA PO (09:23)
[2019-11-15] MEDS ORDERED: HYDR25TA4 PO (09:23)
[2019-11-15] MEDS ORDERED: IBUP-2185 PO (09:23)
[2019-11-15] MEDS ORDERED: ACET-2267 PO (09:23)
[2019-11-15] MEDS ORDERED: MULT-1136 PO (09:23)
--- NOTE | 2019-11-15 09:25 | NUR ---
SPOKE WITH THE PT (PT HAS HIS MED BOTTLES WITH HIM) AND WENT THRU THE EXT MED HISTORY TO COMPLETE THE MED REC 11-13-2019 DOXYCYCLINE 100MG #20/10DS (THIS DOES NOT SHOW ON THE EXT MED HISTORY) ALL OTHER MEDICATIONS ARE LISTED ON THE EXT MED HISTORY AND THE PT WAS ABLE TO TELL ME HOW/WHEN HE TAKES EACH- HIS INFORMATION MATCHED THE BOTTLES/EXT MED HISTORY OTC MEDS: TYLENOL IBUPROFEN MTV MAGNESIUM
[2019-11-15] MEDS ORDERED: ACETAMINOPHEN 500 MG TAB (TYLENOL) PO PRN (10:30)
[2019-11-15] MEDS ORDERED: RELABEL FOR HOME USE MC SCH (10:30)
[2019-11-15] MEDS: inSUlin (REGULAR) HUMAN 1 UNIT/0.01 ML (CHARGE PER UNIT) SC SCH ×3 (11:31→21:00)
[2019-11-15 11:42] VITALS: BP 152/75
[2019-11-15] MEDS ORDERED: LEVOFLOXACIN 750 MG/150 ML IV 150 ML IV SCH (12:00)
--- NOTE | 2019-11-15 13:33 | NUR ---
"RD ASSESSMENT PMHx: HTN; GERD; DM; hypothyroidism PT INTERACTION: Pt was awake and pleasant during nutrition assessment. Pt states current appetite is not good, and has been this way for about 1 week. Note avg PO intake of 88% x2meal, per chart review. Pt states following a regular diet at home, and has no issues with chewing/swallowing food. Pt states some recent issues with vomiting. Pt states no recent issues with constipation or diarrhea. Note last BM was 7/2, and pt currently on bowel regimen of senna BID, per chart review. Pt states some recent wt gain, attributing it to not being as normally active during the pandemic. Note recent 14# wt gain x7mon, per chart review. Pt states current DM management is pretty good. Pt states having a dex-con glucometer that alerts him if blood glucose levels get too high or low. Note unable to determine recent HbA1c, per chart review. Note presence of wound on right foot, per chart review. ABNORMAL NUTRITION-RELATED LAB VALUES LOW: HIGH: BUN 27; cr 1.49; glu 327 Est. kcal needs: 4302-3236 kcal | 20-25 kcal/kg Est. Pro needs: 114-133 g Pro | 1.2-1.4 g Pro/kg PES STATEMENT: Inadequate protein intake (NI-5.6.1) related to increased protein needs as evidenced by presence of wound (R foot) INTERVENTION: Continue with current diet order of CHO 75g/m 0snack diet. Add Ensure HP (vary) to meals TID. Provides 160 kcal and 16 g Pro per serving, for perceived benefit to wound healing. Discussed and provided diet education on DM management. Discussed CHO counting, fiber content, portion control, smartphone applications, and snacking options. Pt verbalized understanding of information provided. Will continue to follow and reassess as pt needs, intake, and status change. MONITOR/EVALUATE: PO Intake; Plan of Care; Hydration Status; Weight Status; Lab Values Judd Dowling, MS, RD, LD"
[2019-11-15] MEDS: ENOXAPARIN 40 MG/0.4 ML (LOVENOX) SYR SC SCH (15:01)
--- NOTE | 2019-11-15 15:12 | Diagnostic Imaging Report ---
PROCEDURE: US right lower extremity venous. TECHNIQUE: Multiple real-time grayscale images were obtained over the right lower extremity in various projections. Additional spectral analysis and color Doppler duplex images were also obtained. INDICATION: Redness and swelling to the right leg. FINDINGS: There is no evidence of right lower extremity DVT. Right lower extremity deep venous system shows normal compressibility with normal response to augmentation and Valsalva. No fluid collection or mass is detected. IMPRESSION: No evidence of right lower extremity DVT. Dictated by: Dictated on workstation # [id number]
[2019-11-15 15:57] VITALS: BP 163/74
[2019-11-15] MEDS ORDERED: VANCOMYCIN 1500 MG/NS 500 ML IVPB IV SCH ×2 (16:00)
--- NOTE | 2019-11-15 16:18 | Consultation - Surgery ---
History of Present Illness History of Present Illness Patient Consulted On(stella/time) 11/15/19 16:05 Time Seen by Provider: 11:28 History of Present Illness Surgery asked to consult regarding right leg cellulitis. HPI per ED: 69-year-old male presents with right leg infection. States that 2 days ago he had a blister on his right great toe which he opened up with a needle and jacquelin off some bloody fluid. The next morning he developed pain and swelling in his foot and lower leg. 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 Patient has some malaise and chills without documented fever. Denies any other pain, swelling or skin changes. Patient is diabetic. When I spoke to pt this afternoon he stated he thought his leg was getting better, denied trauma to the area. He is an uncontrolled diabetic and stated he thought his shoes were too tight, "but really can't feel my feet anyway". 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 He rates pain as 2 out of 10. He states he has never had problem like this before. Allergies and Home Medications Allergies Coded Allergies: codeine (Verified Adverse Reaction, Intermediate, 11/14/19) Patient states that he feels "out of his mind and terrible" when taking this medication Home Medications Acetaminophen 500 Mg Tablet, 1,000 MG PO Q8H PRN for PAIN-MILD (1-4), (Reported) Amlodipine Besylate 5 Mg Tablet, 5 MG PO DAILY, (Reported) Doxycycline Monohydrate 100 Mg Tablet, 100 MG PO Q12H, (Reported) FILLED 11-13-2019 #20 DAY SUPPLY Hydrochlorothiazide 25 Mg Tablet, 25 MG PO DAILY, (Reported) Ibuprofen 200 Mg Capsule, 400 MG PO Q8H PRN for PAIN-MILD (1-4), (Reported) Levothyroxine Sodium 200 Mcg Tablet, 200 MCG PO DAILY, (Reported) Lisinopril 40 Mg Tablet, 40 MG PO DAILY, (Reported) Magnesium Oxide 400 Mg Tablet, 400 MG PO DAILY, (Reported) Meloxicam 15 Mg Tablet, 15 MG PO DAILY, (Reported) Multivitamin 1 Each Tablet, 1 EACH PO DAILY, (Reported) Nebivolol HCl 5 Mg Tablet, 5 MG PO DAILY, (Reported) Pantoprazole Sodium 40 Mg Tablet.dr, 40 MG PO DAILY, (Reported) Patient Home Medication List Home Medication List Reviewed: Yes Past [id number]-Elvdge Hx Patient Social History Alcohol Use: Denies Use Recreational Drug Use: No Smoking Status: Light Tobacco Smoker 2nd Hand Smoke Exposure: No Recent Foreign Travel: No Contact w/Someone Who Travel: No Recent Infectious Disease Expo: No Recent Hopitalizations: No Physical Abuse Screen: No Sexual Abuse: No Immunizations Up To Date Date of Pneumonia Vaccine: Feb 13, 2019 Seasonal Allergies Seasonal Allergies: Yes Surgeries History of Surgeries: Yes (Hernia Repair) Surgeries: Appendectomy Respiratory History of Respiratory Disorde: No Cardiovascular History of Cardiac Disorders: Yes Cardiac Disorders: High Cholesterol, Hypertension Neurological History of Neurological Disord: No Neurological Disorders: Neuropathy Genitourinary History of Genitourinary Disor: No Genitourinary Disorders: Renal Failure Gastrointestinal History of Gastrointestinal Di: No Gastrointestinal Disorders: Gastroesophageal Reflux Musculoskeletal History of Musculoskeletal Dis: No Musculoskeletal Disorders: Arthritis Endocrine History of Endocrine Disorders: No Endocrine Disorders: Diabetes, Insulin dep, Hypothyroidsim HEENT History of HEENT Disorders: No Cancer History of Cancer: No Psychosocial History of Psychiatric Problem: No Integumentary History of Skin or Integumenta: No Blood Transfusions History of Blood Disorders: No Adverse Reaction to a Blood Tr: No Family Medical History Significant Family History: Other Conditions/Hx (Pt states grandfather lived til 93, didn't know his father and his mother young in a car crash) Review of Systems-General Constitutional: No malaise, No weakness EENTM: No blurred vision, No double vision, No mouth pain, No mouth swelling Respiratory: No dyspnea on exertion, No short of breath Cardiovascular: edema; No palpitations Gastrointestinal: No abdominal pain, No jaundice, No nausea, No vomiting Genitourinary: No dysuria, No frequency, No hematuria Musculoskeletal: joint pain, joint swelling, muscle pain, muscle stiffness Skin: see HPI Psychiatric/Neurological: Denies Anxiety, Denies Depressed, Denies Seizure, Denies Tremors Other pt denies any hx of abnormal bleeding or bruising Physical Exam-General Problems Physical Exam Vital Signs Vital Signs - First Documented 11/14/19 11:35 Temp 36.0 Pulse 68 Resp 16 B/P (MAP) 146/72 (96) Pulse Ox 97 O2 Delivery Room Air Capillary Refill : Less Than 3 Seconds General Appearance: WD/WN, no apparent distress Eyes: Bilateral Eye PERRL, Bilateral Eye EOMI HEENT: pharynx normal; No scleral icterus (R), No scleral icterus (L) Neck: non-tender, supple Respiratory: lungs clear, normal breath sounds, no respiratory distress, no accessory muscle use Cardiovascular: regular rate, rhythm, no murmur Gastrointestinal: non tender, soft, no organomegaly, no pulsatile mass Back: no CVA tenderness, no vertebral tenderness Extremities: no calf tenderness (right, but this is right at site of cellulitis), pedal edema (right foot +2-3), other (pt has area of erythema from thigh down to foot (inside previous lines drawn). 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, no motor/sensory deficits, normal mood/affect, oriented x 3 Skin: normal color, warm/dry Lymphatic: no adenopathy (neck, axilla or groin) Data Review Labs Laboratory Tests 11/15/19 03:06: Glucometer 407*H 11/15/19 05:17: White Blood Count 15.1H, Red Blood Count 3.96L, Hemoglobin 11.3L, Hematocrit 35L , Mean Corpuscular Volume 87, Mean Corpuscular Hemoglobin 29, Mean Corpuscular Hemoglobin Concent 33, Red Cell Distribution Width 13.7, Platelet Count 328, Mean Platelet Volume 11.3H, Neutrophils (%) (Auto) 79H, Lymphocytes (%) (Auto) 12, Monocytes (%) (Auto) 7, Eosinophils (%) (Auto) 2, Basophils (%) (Auto) 0, Neutrophils # (Auto) 11.9H, Lymphocytes # (Auto) 1.8, Monocytes # (Auto) 1.0, Eosinophils # (Auto) 0.4H, Basophils # (Auto) 0.1, Sodium Level 136, Potassium Level 3.9, Chloride Level 103, Carbon Dioxide Level 19L, Anion Gap 14, Blood Urea Nitrogen 27H, Creatinine 1.44H, Estimat Glomerular Filtration Rate 49, BUN/Creatinine Ratio 19, Glucose Level 327H, Calcium Level 8.7, Corrected Calcium 9.1, Total Bilirubin 0.4, Aspartate Amino Transf (AST/SGOT) 12, Alanine Aminotransferase (ALT/SGPT) 15, Alkaline Phosphatase 88, Total Protein 6.6, Albumin 3.5 Radiology Date of Exam:11/15/19 US VENOUS LOWER EXT RT PROCEDURE: US right lower extremity venous. TECHNIQUE: Multiple real-time grayscale images were obtained over the right lower extremity in various projections. Additional spectral analysis and color Doppler duplex images were also obtained. INDICATION: Redness and swelling to the right leg. FINDINGS: There is no evidence of right lower extremity DVT. Right lower extremity deep venous system shows normal compressibility with normal response to augmentation and Valsalva. No fluid collection or mass is detected. IMPRESSION: No evidence of right lower extremity DVT. Dictated by: Dictated on workstation # [id number] Dict: 11/15/19 1503 Trans: 11/15/19 1555 [id number] Interpreted by: BRAEDEN KO MD Electronically signed by: BRAEDEN KO MD 11/15/19 1555 Assessment/Plan Assessment/Plan Assessment/Plan Right Leg Cellulitis Right 1st toe ulcer Continue IV ABX, elevate leg, no need for surgical intervention at this time. I recommended pt follow with podiatry, wear loose (diabetic0 shoes, get blood sugar under control. Will continue to monitor his leg and toe. Clinical Quality Measures DVT/VTE Risk/Contraindication: Risk Factor Score Per Nursin RFS Level Per Nursing on Admit: 2=Moderate Contraindications-Mechi: Other *list below* Other: cellulitis legs SKY SPENCER DO Nov 15, 2019 16:18
[2019-11-15 19:13] VITALS: BP 137/70
[2019-11-15] MEDS: CARVEDILOL 12.5 MG (COREG) TABLET PO SCH (21:03)
[2019-11-16 00:08] VITALS: BP 167/74
[2019-11-16] MEDS: NS IV 1000 ML 1,000 ML IV SCH ×2 (00:49→05:43)
[2019-11-16 03:29] VITALS: BP 138/72
[2019-11-16] MEDS: inSUlin ASPART (NovoLOG) 1 UNIT/0.01 ML (CHARGE PER UNIT) SC SCH ×2 (05:40→10:31)
[2019-11-16] MEDS: inSUlin (REGULAR) HUMAN 1 UNIT/0.01 ML (CHARGE PER UNIT) SC SCH ×2 (05:42→10:31)
[2019-11-16] MEDS ORDERED: LEVOTHYROXINE 100 MCG (LEVOTHROID) TAB PO SCH (06:30)
[2019-11-16 07:09] LABS: BASOPHILS # (AUTO) 0.1 10^3/uL (0.0-0.1); BASOPHILS % (AUTO) 0 % (0-10); EOSINOPHILS # (AUTO) 0.7 10^3/uL (0.0-0.3); EOSINOPHILS % (AUTO) 4 % (0-10); HEMATOCRIT 33 % (40-54); HEMOGLOBIN 10.6 G/DL (13.3-17.7); LYMPHOCYTES # (AUTO) 3.2 X 10^3 (1.0-4.0); LYMPHOCYTES % (AUTO) 19 % (12-44); MEAN CORPUSCULAR HEMOGLOBIN 29 PG (25-34); MEAN CORPUSCULAR HGB CONC 32 G/DL (32-36); MEAN CORPUSCULAR VOLUME 89 FL (80-99); MEAN PLATELET VOLUME 10.9 FL (7.4-10.4); MONOCYTES # (AUTO) 1.4 X 10^3 (0.0-1.0); MONOCYTES % (AUTO) 8 % (0-12); NEUTROPHILS % (AUTO) 69 % (42-75); PLATELET COUNT 351 10^3/uL (130-400); WHITE BLOOD COUNT 17.4 10^3/uL (4.3-11.0)
[2019-11-16 07:27] LABS: ALBUMIN 3.3 GM/DL (3.2-4.5); CHLORIDE 107 MMOL/L (98-107); POTASSIUM 3.8 MMOL/L (3.6-5.0); SODIUM 140 MMOL/L (135-145)
[2019-11-16 07:28] LABS: CALCIUM 8.5 MG/DL (8.5-10.1)
[2019-11-16 07:29] LABS: GLUCOSE 134 MG/DL (70-105); TOTAL PROTEIN 6.3 GM/DL (6.4-8.2)
[2019-11-16 07:31] LABS: BILIRUBIN,TOTAL 0.3 MG/DL (0.1-1.0); CARBON DIOXIDE 22 MMOL/L (21-32)
[2019-11-16 07:33] LABS: ALKALINE PHOSPHATASE 77 U/L (40-136); CREATININE SERUM 0.91 MG/DL (0.60-1.30); GFR ESTIMATED > 60
[2019-11-16 07:34] LABS: BUN/CREATININE RATIO 16
[2019-11-16 07:36] LABS: ALANINE AMINOTRANSFERASE 12 U/L (0-55)
[2019-11-16 07:52] LABS: ATYPICAL LYMPHOCYTES 5 %; BAND NEUTROPHILS 3 %; BASOPHILS % (MANUAL) 1 %; EOSINOPHILS % (MANUAL) 4 %; LYMPHOCYTES % (MANUAL) 17 %; MONOCYTES % (MANUAL) 5 %; NEUTROPHILS % (MANUAL) 65 %; POLYCHROMASIA SLIGHT
[2019-11-16] MEDS ORDERED: MAGNESIUM OXIDE (MAG-OX)400 MG TAB PO SCH (08:00)
[2019-11-16] MEDS ORDERED: MULTIVIT W/MINERALS TAB (THERAGRAN M) PO SCH (08:00)
[2019-11-16 08:03] VITALS: BP 166/76
[2019-11-16] MEDS: CARVEDILOL 12.5 MG (COREG) TABLET PO SCH (08:06)
[2019-11-16] MEDS: SENNA W/DOCUSATE (SENOKOT S) TABLET PO SCH (08:06)
[2019-11-16] MEDS ORDERED: amLODIPine 5 MG (NORVASC) TAB PO SCH (09:00)
[2019-11-16] MEDS ORDERED: PANTOPRAZOLE 40 MG (PROTONIX) TAB PO SCH (09:00)
--- NOTE | 2019-11-16 09:42 | Progress Note - Hospitalist ---
Subjective HPI/CC On Admission CC: Right leg cellulitis HPI: This is 69yoWM clinic pt of Laurie Rosales and Dr. 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 He was placed on Doxycycline and he had failed that, he had seen podiatry for the right great toe ulceration but currently there was an outline of the severe erythema all the way up into his thigh groin area that has significant improved by 70% and currently he is doing well. I did restart his home medication added in the Levemir and regular insulin of 10 units before meals because of his high sugars. Creatinine is 1.44, WC is 15. We will get an ultrasound to make sure this is not a right leg DVT. He has been maintained on Lovenox for DVT prophylaxis in the meantime. Focused Exam Lactate Level 11/14/19 12:00: Lactic Acid Level 1.37 11/16/19 09:59: Lactic Acid Level 1.19 Objective Exam Vital Signs Vital Signs Date Time Temp Pulse Resp B/P (MAP) Pulse Ox O2 Delivery O2 Flow Rate FiO2 11/16/19 11:39 11/16/19 08:03 36.9 62 18 97 Room Air Capillary Refill : Less Than 3 SecondsLess Than 3 Seconds Results/Procedures Lab Laboratory Tests 11/16/19 05:35 Patient resulted labs reviewed. Clinical Quality Measures DVT/VTE Risk/Contraindication: Risk Factor Score Per Nursin RFS Level Per Nursing on Admit: 2=Moderate Contraindications-Mechi: Other *list below* Other: cellulitis legs LEXIE FOLEY DO Nov 16, 2019 09:42
--- NOTE | 2019-11-16 10:36 | Progress Note - Surgery ---
Subjective Time Seen by a Provider: 10:26 Subjective/Events-last exam Pt seen and examined, no new complaints and wants to go home. He thinks his leg is better. Review of Systems General: No Chills, No Night Sweats Pulmonary: No Dyspnea, No Cough Cardiovascular: No: Chest Pain, Palpitations Gastrointestinal: No: Nausea, Vomiting Focused Exam Lactate Level 11/14/19 12:00: Lactic Acid Level 1.37 11/16/19 09:59: Lactic Acid Level 1.19 Lactic Acid Level Laboratory Tests Test 11/16/19 09:59 Lactic Acid Level 1.19 MMOL/L (0.50-2.00) Objective Exam Vital Signs Date Time Temp Pulse Resp B/P (MAP) Pulse Ox O2 Delivery O2 Flow Rate FiO2 11/16/19 08:03 36.9 62 18 166/76 (106) 97 Room Air 11/16/19 08:00 97 Room Air 11/16/19 03:29 36.8 71 19 138/72 (94) 92 Room Air 11/16/19 00:08 37.0 64 20 167/74 (105) 98 Room Air 11/15/19 20:00 98 Room Air 11/15/19 19:13 36.9 66 20 137/70 (92) 97 Room Air 11/15/19 15:57 37.3 69 18 163/74 (103) 97 Room Air 11/15/19 11:42 37.3 75 20 152/75 (100) 95 Room Air I & O 11/16/19 07:00 Intake Total 1720 ml Balance 1720 ml Capillary Refill : Less Than 3 SecondsLess Than 3 Seconds General Appearance: No Apparent Distress HEENT: PERRL/EOMI, Moist Mucous Membranes Respiratory: Chest Non Tender, Lungs Clear, Normal Breath Sounds, No Accessory Muscle Use, No Respiratory Distress Cardiovascular: Regular Rate, Rhythm, No Murmur Gastrointestinal: non tender, soft Extremity: Pedal Edema (+3 in right leg), Other (right leg has less erythema, but seems more swollen, toe appears the same) Neurologic/Psychiatric: Alert, Oriented x3 Results Lab Laboratory Tests 11/16/19 05:35: White Blood Count 17.4H, Red Blood Count 3.68L, Hemoglobin 10.6L, Hematocrit 33L , Mean Corpuscular Volume 89, Mean Corpuscular Hemoglobin 29, Mean Corpuscular Hemoglobin Concent 32, Red Cell Distribution Width 14.0, Platelet Count 351, Mean Platelet Volume 10.9H, Neutrophils (%) (Auto) 69, Lymphocytes (%) (Auto) 19, Monocytes (%) (Auto) 8, Eosinophils (%) (Auto) 4, Basophils (%) (Auto) 0, Neutrophils # (Auto) 12.0H, Lymphocytes # (Auto) 3.2, Monocytes # (Auto) 1.4H, Eosinophils # (Auto) 0.7H, Basophils # (Auto) 0.1, Neutrophils % (Manual) 65, Lymphocytes % (Manual) 17, Monocytes % (Manual) 5, Eosinophils % (Manual) 4, Basophils % (Manual) 1, Band Neutrophils 3, Atypical Lymphocytes 5, Polychromasia SLIGHT, Sodium Level 140, Potassium Level 3.8, Chloride Level 107, Carbon Dioxide Level 22, Anion Gap 11, Blood Urea Nitrogen 15, Creatinine 0.91, Estimat Glomerular Filtration Rate > 60, BUN/Creatinine Ratio 16, Glucose Level 134H, Calcium Level 8.5, Corrected Calcium 9.1, Total Bilirubin 0.3, Aspartate Amino Transf (AST/SGOT) 13, Alanine Aminotransferase (ALT/SGPT) 12, Alkaline Phosphatase 77, Total Protein 6.3L, Albumin 3.3, Procalcitonin 0.11H 11/16/19 09:59: Lactic Acid Level 1.19 Microbiology 11/14/19 Blood Culture - Preliminary, Resulted No growth Assessment/Plan Assessment/Plan Assessment/Plan Right Leg Cellulitis - improved Right 1st toe ulcer - no changes Switch to PO ABX, continue to try and elevate leg (pt stated that caused pain when he tried it last night); still no need for surgical intervention at this time. I again encouraged pt to follow with podiatry, wear loose (diabetic) shoes, get blood sugar under control. He can see me as an outpt if needed. Clinical Quality Measures DVT/VTE Risk/Contraindication: Risk Factor Score Per Nursin RFS Level Per Nursing on Admit: 2=Moderate Contraindications-Mechi: Other *list below* Other: cellulitis legs SKY SPENCER DO Nov 16, 2019 10:36
[2019-11-16] MEDS ORDERED: APIX2.5T PO (11:16)
[2019-11-16] MEDS ORDERED: LEVO750T9 PO (11:16)
[2019-11-16] MEDS ORDERED: HYDR-83 PO (11:16)
--- NOTE | 2019-11-16 13:46 | Discharge Summary ---
Discharge Summary Hospital Course Was the Problem List Reviewed?: Yes Problems/Dx: (1) Cellulitis of right lower extremity Status: Acute (2) Dehydration Status: Acute Hospital Course Date of Admission: Nov 14, 2019 at 13:40 Admission Diagnosis : Family Physician/Provider: Tamanna Aly Aprn Date of Discharge: 11/16/19 Discharge Diagnosis: Right leg cellulitis, DM, obesity Hospital Course: Patient had an uneventful course he was placed on IV antibiotics broad spectrum ultrasound revealed no DVT. Patient responded rapidly to the broad spectrum a ntibiotics. Insulin given for hyperglycemia. Overall patient felt ready for discharge. Will put him on Eliquis 2.5mg twice daily for DVT prophylaxis due to the edema of the right leg. Labs and Pending Lab Test: Laboratory Tests 11/16/19 05:35: White Blood Count 17.4H, Red Blood Count 3.68L, Hemoglobin 10.6L, Hematocrit 33L , Mean Corpuscular Volume 89, Mean Corpuscular Hemoglobin 29, Mean Corpuscular Hemoglobin Concent 32, Red Cell Distribution Width 14.0, Platelet Count 351, Mean Platelet Volume 10.9H, Neutrophils (%) (Auto) 69, Lymphocytes (%) (Auto) 19, Monocytes (%) (Auto) 8, Eosinophils (%) (Auto) 4, Basophils (%) (Auto) 0, Neutrophils # (Auto) 12.0H, Lymphocytes # (Auto) 3.2, Monocytes # (Auto) 1.4H, Eosinophils # (Auto) 0.7H, Basophils # (Auto) 0.1, Neutrophils % (Manual) 65, Lymphocytes % (Manual) 17, Monocytes % (Manual) 5, Eosinophils % (Manual) 4, Basophils % (Manual) 1, Band Neutrophils 3, Atypical Lymphocytes 5, Polychromasia SLIGHT, Sodium Level 140, Potassium Level 3.8, Chloride Level 107, Carbon Dioxide Level 22, Anion Gap 11, Blood Urea Nitrogen 15, Creatinine 0.91, Estimat Glomerular Filtration Rate > 60, BUN/Creatinine Ratio 16, Glucose Level 134H, Calcium Level 8.5, Corrected Calcium 9.1, Total Bilirubin 0.3, Aspartate Amino Transf (AST/SGOT) 13, Alanine Aminotransferase (ALT/SGPT) 12, Alkaline Phosphatase 77, Total Protein 6.3L, Albumin 3.3, Procalcitonin 0.11H 11/16/19 09:59: Lactic Acid Level 1.19 Microbiology 11/14/19 Blood Culture - Preliminary, Resulted No growth Home Meds Active Eliquis (Apixaban) 2.5 Mg Tablet 2.5 Mg PO BID Levaquin (Levofloxacin) 750 Mg Tablet 750 Mg PO DAILY Hydrocodone-Acetamin 5-325 mg (Hydrocodone/Acetaminophen) 1 Each Tablet 1 Tab PO Q4H PRN Reported Magnesium (Magnesium Oxide) 400 Mg Tablet 400 Mg PO DAILY Multivitamin 1 Each Tablet 1 Each PO DAILY Tylenol Extra Strength (Acetaminophen) 500 Mg Tablet 1,000 Mg PO Q8H PRN Lisinopril 40 Mg Tablet 40 Mg PO DAILY Hydrochlorothiazide 25 Mg Tablet 25 Mg PO DAILY Bystolic (Nebivolol HCl) 5 Mg Tablet 5 Mg PO DAILY Pantoprazole Sodium 40 Mg Tablet.dr 40 Mg PO DAILY Amlodipine Besylate 5 Mg Tablet 5 Mg PO DAILY Levothyroxine Sodium 200 Mcg Tablet 200 Mcg PO DAILY Assessment/Pt Instructions [facility] Tuesday Discharge Planning: <30 minutes discharge planning Discharge Instructions Discharge Diet: ADA Diet Discharge Physical Examination Vital Signs Vital Signs Date Time Temp Pulse Resp B/P (MAP) Pulse Ox O2 Delivery O2 Flow Rate FiO2 11/16/19 11:39 11/16/19 08:03 36.9 62 18 97 Room Air General Appearance: No Apparent Distress, WD/WN Extremity: Other (right leg redness much improved) Allergies: Coded Allergies: codeine (Verified Adverse Reaction, Intermediate, 11/14/19) Patient states that he feels "out of his mind and terrible" when taking this medication Discharge Summary Date of Admission Nov 14, 2019 at 13:40 Date of Discharge Nov 16, 2019 at 11:42 Discharge Date: Nov 16, 2019 Admission Diagnosis Assessment: Right leg cellulitis severe in nature required IV antibiotic failed oral antibiotic of doxycycline Right great toe ulcer consulted Dr. Joya Right leg pain ordering ultrasound to rule out DVT DM HTN CRI Plan: IV antibiotics Dr. Joya Ultrasound Lovenox Increase insulin Clinical Quality Measures DVT/VTE Risk/Contraindication: Risk Factor Score Per Nursin RFS Level Per Nursing on Admit: 2=Moderate Contraindications-Mechi: Other *list below* Other: cellulitis legs LEXIE FOLEY DO Nov 16, 2019 13:36
[2019-11-16] MEDS ORDERED: TROUGH ORDER-PHARMACY XX NR (15:00)
== END 2019-11-16 11:42 | disposition home or self-care (01) ==
LOC: EDUNIT# 11:31 → ER FS 11:33 → 4TH 13:40
PROVIDERS: ADMIT Internal Medicine; ATTEND Internal Medicine
DX: L03.115 Cellulitis of right lower limb (principal); L97.519 Non-pressure chronic ulcer of other part of right foot with unspecified severity; I12.9 Hypertensive chronic kidney disease with stage 1 through stage 4 chronic kidney disease, or unspecified chronic kidney disease; E11.22 Type 2 diabetes mellitus with diabetic chronic kidney disease; N18.9 Chronic kidney disease, unspecified; K21.9 Gastro-esophageal reflux disease without esophagitis; E03.9 Hypothyroidism, unspecified; E78.00 Pure hypercholesterolemia, unspecified; E11.40 Type 2 diabetes mellitus with diabetic neuropathy, unspecified; E11.628 Type 2 diabetes mellitus with other skin complications; M19.90 Unspecified osteoarthritis, unspecified site; F17.200 Nicotine dependence, unspecified, uncomplicated; Z79.4 Long term (current) use of insulin; Z79.899 Other long term (current) drug therapy; Z88.5 Allergy status to narcotic agent
CPT/HCPCS: 36415; 80053; 82962; 83605; 84145; 85007; 85025; 85027; 87040; 96365; G0378

== ENCOUNTER → 2019-11-20 | Outpatient (CLI) | payer MEDICARE, OTHER ==
[~2019-11-20] MED LIST changes: +ACET-2267 PO; +AMLO5TAB9 PO; +APIX2.5T PO; +DOXY100T31 PO; +HYDR-83 PO; +HYDR25TA4 PO; +IBUP-2185 PO; +LEVO200T6 PO; +LEVO750T9 PO; +LISI40TA PO; +MAGN400T39 PO; +MELO15TA39 PO; +MULT-1136 PO; +NEBI5TAB8 PO; +PANT40TA3 PO
== END ==
LOC: WOUNDCARE 12:54
PROVIDERS: ATTEND Surgery
DX: E11.621 Type 2 diabetes mellitus with foot ulcer (principal); E11.42 Type 2 diabetes mellitus with diabetic polyneuropathy; E11.52 Type 2 diabetes mellitus with diabetic peripheral angiopathy with gangrene; I96 Gangrene, not elsewhere classified; L97.512 Non-pressure chronic ulcer of other part of right foot with fat layer exposed; L03.115 Cellulitis of right lower limb
CPT/HCPCS: 11042; 83036; A6260; G0463; L4360; 36415

== ENCOUNTER → 2019-11-20 | Outpatient (CLI) | payer MEDICARE, OTHER ==
--- NOTE | 2019-11-20 15:52 | Diagnostic Imaging Report ---
INDICATION: Right great toe ulcer. TIME OF EXAM: 3:10 PM. FINDINGS: Three views of the right foot were obtained. The metatarsals are intact. The phalanges appear to be intact. No definite bony destructive changes are seen to suggest osteomyelitis. No soft tissue gas is detected. The midfoot and hindfoot are unremarkable apart from a plantar calcaneal spur. IMPRESSION: No acute bony abnormality is detected. Dictated by: Dictated on workstation # [id number]
== END ==
LOC: RAD 14:37
PROVIDERS: ATTEND Surgery
DX: E11.621 Type 2 diabetes mellitus with foot ulcer (principal); E11.42 Type 2 diabetes mellitus with diabetic polyneuropathy; L97.512 Non-pressure chronic ulcer of other part of right foot with fat layer exposed; L03.115 Cellulitis of right lower limb
CPT/HCPCS: 73630

== ENCOUNTER → 2019-11-26 | Outpatient (CLI) | payer MEDICARE, OTHER | LOC: WOUNDCARE 10:53 | PROVIDERS: ATTEND Surgery | DX: E11.621 Type 2 diabetes mellitus with foot ulcer (principal); E11.52 Type 2 diabetes mellitus with diabetic peripheral angiopathy with gangrene; E11.42 Type 2 diabetes mellitus with diabetic polyneuropathy; I96 Gangrene, not elsewhere classified; L97.512 Non-pressure chronic ulcer of other part of right foot with fat layer exposed; L03.115 Cellulitis of right lower limb | CPT/HCPCS: 11042 ==

== ENCOUNTER → 2019-12-05 | Outpatient (CLI) | payer MEDICARE, OTHER | LOC: WOUNDCARE 10:48 | PROVIDERS: ATTEND Orthopaedic Surgery Hand Surgery | DX: E11.621 Type 2 diabetes mellitus with foot ulcer (principal); L97.512 Non-pressure chronic ulcer of other part of right foot with fat layer exposed; E11.42 Type 2 diabetes mellitus with diabetic polyneuropathy; L03.115 Cellulitis of right lower limb; I10 Essential (primary) hypertension; M19.90 Unspecified osteoarthritis, unspecified site; E03.9 Hypothyroidism, unspecified; Z87.891 Personal history of nicotine dependence | CPT/HCPCS: 11042; A6196 ==

== ENCOUNTER → 2019-12-19 | Outpatient (CLI) | payer MEDICARE, OTHER ==
[~2019-12-19] MED LIST changes: +HYDR-3812 PO; -HYDR-83 PO
== END ==
LOC: WOUNDCARE 10:04
PROVIDERS: ATTEND Surgery
DX: E11.621 Type 2 diabetes mellitus with foot ulcer (principal); L97.512 Non-pressure chronic ulcer of other part of right foot with fat layer exposed; E11.42 Type 2 diabetes mellitus with diabetic polyneuropathy; L03.115 Cellulitis of right lower limb; I10 Essential (primary) hypertension; M19.90 Unspecified osteoarthritis, unspecified site; E03.9 Hypothyroidism, unspecified; Z87.891 Personal history of nicotine dependence
CPT/HCPCS: 11042; G0463; 99211

== ENCOUNTER → 2019-12-26 | Outpatient (CLI) | payer MEDICARE, OTHER | LOC: WOUNDCARE 10:04 | PROVIDERS: ATTEND Surgery | DX: E11.52 Type 2 diabetes mellitus with diabetic peripheral angiopathy with gangrene (principal); E11.621 Type 2 diabetes mellitus with foot ulcer; E11.42 Type 2 diabetes mellitus with diabetic polyneuropathy; L97.512 Non-pressure chronic ulcer of other part of right foot with fat layer exposed; L03.115 Cellulitis of right lower limb; I96 Gangrene, not elsewhere classified | CPT/HCPCS: 99212 ==

== ENCOUNTER 2020-10-21 18:16 | Emergency (ER) | payer OTHER, MEDICARE ==
[~2020-10-21] VITALS: Ht 177.8 cm; Wt 95.5 kg
[2020-10-21 18:16] VITALS: BP 157/74
[~2020-10-21 18:16] MED LIST changes: +ACHD5005 PO; +AMLO-250 PO; -AMLO5TAB9 PO; -HYDR-3812 PO; -LISI40TA PO; +LISI40TA9 PO; -PANT40TA3 PO; +PANT40TA52 PO
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
--- NOTE | 2020-10-21 18:54 | Diagnostic Imaging Report ---
EXAMINATION: Left shoulder 2 or more views. HISTORY: Fall COMPARISON: None available. FINDINGS: There is a comminuted proximal left humerus fracture. There is mild acromioclavicular osteoarthritis. Glenohumeral joint is normal. IMPRESSION: 1. Comminuted proximal left humeral fracture. Dictated by: Dictated on workstation # [id number]
[2020-10-21] MEDS ORDERED: ACHD5005 PO ×2 (19:29→23:15)
== END 2020-10-21 18:45 | disposition home or self-care (01) ==
LOC: EDUNIT# 18:16 → ER FS 18:18
DX: S42.202A Unspecified fracture of upper end of left humerus, initial encounter for closed fracture (principal); I10 Essential (primary) hypertension; K21.9 Gastro-esophageal reflux disease without esophagitis; E03.9 Hypothyroidism, unspecified; E11.9 Type 2 diabetes mellitus without complications; Z88.5 Allergy status to narcotic agent; Z79.01 Long term (current) use of anticoagulants; Z79.890 Hormone replacement therapy; Z79.899 Other long term (current) drug therapy; V28.0XXA Motorcycle driver injured in noncollision transport accident in nontraffic accident, initial encounter
CPT/HCPCS: 73030; 99283; A4565

== ENCOUNTER 2020-10-21 22:56 | Emergency (ER) | payer OTHER, MEDICARE ==
[~2020-10-21] VITALS: Ht 177.8 cm; Wt 92.6 kg
[2020-10-21 22:58] VITALS: BP 156/51
[2020-10-21] MEDS ORDERED: ACHD5005 PO (23:15)
--- NOTE | 2020-10-21 23:16 | ED Upper Extremity ---
General Chief Complaint: Upper Extremity Stated Complaint: LT SHOULDER PAIN Nursing Triage Note: Patient is being seen for uncontrolled pain for a broken left shoulder. Patient states he was in this ER earlier this evening and diagnosed with a shoulder fracture. Patient was called in a prescription for Hydrocodone, which he took 2 of. Patient states it isn't helping. Patient is not wearing the shoulder immobilizer that he was given earlier. Nursing Sepsis Screen: No Definite Risk History of Present Illness Date Seen by Provider: Oct 21, 2020 Time Seen by Provider: 11:08 Initial Comments 70 y/o male seen earlier today myself for proximal humeral fx. Sent home w splint, pain meds and f/u information. Presents w no sling and has not iced his shoulder yet. States it's uncomfortable and hurts when he moves it. Took 2 Hydrocodone for pain and still having some pain, not unbearable....states uncomfortable. No new complaint Allergies and Home Medications Allergies Coded Allergies: codeine (Verified Adverse Reaction, Intermediate, 11/14/19) Patient states that he feels "out of his mind and terrible" when taking this medication Home Medications Acetaminophen 500 Mg Tablet, 1,000 MG PO Q8H PRN for PAIN-MILD (1-4), (Reported) Amlodipine Besylate 5 Mg Tablet, 5 MG PO DAILY, (Reported) Apixaban 2.5 Mg Tablet, 2.5 MG PO BID Prescribed by: LEXIE FOLEY on 11/16/19 111 Hydrochlorothiazide 25 Mg Tablet, 25 MG PO DAILY, (Reported) Hydrocodone/Acetaminophen 1 Each Tablet, 1 TAB PO Q4H PRN for PAIN-MODERATE (5- 7) Prescribed by: LEXIE FOLEY on 11/16/19 111 Hydrocodone/Acetaminophen 1 Each Tablet, 1 EACH PO Q4H Prescribed by: BRAYDEN DAVIDSON on 10/21/20 193 Hydrocodone/Acetaminophen 1 Each Tablet, 1 EACH PO Q4H Prescribed by: BRAYDEN DAVIDSON on 10/21/202314 Levofloxacin 750 Mg Tablet, 750 MG PO DAILY Prescribed by: LEXIE FOLEY on 11/16/19 111 Levothyroxine Sodium 200 Mcg Tablet, 200 MCG PO DAILY, (Reported) Lisinopril 40 Mg Tablet, 40 MG PO DAILY, (Reported) Magnesium Oxide 400 Mg Tablet, 400 MG PO DAILY, (Reported) Multivitamin 1 Each Tablet, 1 EACH PO DAILY, (Reported) Nebivolol HCl 5 Mg Tablet, 5 MG PO DAILY, (Reported) Pantoprazole Sodium 40 Mg Tablet.dr, 40 MG PO DAILY, (Reported) Patient Home Medication List Home Medication List Reviewed: Yes Review of Systems Constitutional: No fever, No malaise, No weakness Musculoskeletal: joint pain (left shoulder), joint swelling, muscle pain Psychiatric/Neurological: Denies Numbness, Denies Paresthesia, Denies Tingling, Denies Weakness Past Eenztmz-Acfwmm-Isedob Hx Past Med/Social Hx: Reviewed Nursing Past Med/Soc Hx Patient Social History Alcohol Beverage of Choice: Beer 2nd Hand Smoke Exposure: No Recent Infectious Disease Expo: No Recent Hopitalizations: No Immunizations Up To Date Date of Pneumonia Vaccine: Feb 13, 2019 Seasonal Allergies Seasonal Allergies: Yes Past Medical History Surgeries: Yes (Hernia Repair) Appendectomy Respiratory: No Cardiac: Yes High Cholesterol, Hypertension Neurological: No Neuropathy Genitourinary: No Renal Failure Gastrointestinal: No Gastroesophageal Reflux Musculoskeletal: No Arthritis Endocrine: No Diabetes, Insulin dep, Hypothyroidsim HEENT: No Cancer: No Psychosocial: No Integumentary: No Blood Disorders: No Adverse Reaction/Blood Tranf: No Family Medical History Other Conditions/Hx Physical Exam Vital Signs Vital Signs - First Documented 10/21/20 22:58 Temp 36.7 Pulse 73 Resp 18 B/P (MAP) 156/51 (86) Pulse Ox 99 O2 Delivery Room Air Capillary Refill : Less Than 3 Seconds Height, Weight, BMI Height: '" Weight: lbs. oz. kg; 29.00 BMI Method: General Appearance: WD/WN, no apparent distress Shoulder: bone tenderness, pain, soft tissue tenderness, swelling Elbow/Forearm: normal inspection, non-tender, normal ROM, Left Wrist: Yes normal inspection, Yes non-tender, Yes no evidence of injury, Yes normal ROM Hand: normal inspection, non-tender, no evidence of injury, normal ROM, Left Neurologic/Tendon: motor deficit, sensory deficit Progress/Results/Core Measures Results/Orders Vital Signs/I&O 10/21/20 22:58 Temp 36.7 Pulse 73 Resp 18 B/P (MAP) 156/51 (86) Pulse Ox 99 O2 Delivery Room Air Blood Pressure Mean: 86 Progress Progress Note : Progress Note re-iterated necessity of wearing a sling at all times as well as to apply ice to his shoulder. Offered pain medication (IM or IV) here and now, pt declines and says he wouldn't do that. Offered another sling, pt refused. Offered an Ice pack to wrap around his shoulder w a large donaldo-wrap, pt refused. Encouraged to use the sling and apply ice, gave another Rx for hydrocodone if he runs out of the previous Rx before seeing Ortho. Encouraged to call Dr Marc tomorrow to schedule a follow up appointment Departure Impression Primary Impression: Proximal humerus fracture Qualified Codes: S42.202D - Unspecified fracture of upper end of left humerus, subsequent encounter for fracture with routine healing Disposition: HOME, SELF-CARE Condition: Stable Departure-Patient Inst. Decision time for Depature: 23:14 Referrals: [facility] (PCP) Primary Care Physician YULI NAGEL APRN (Family) Primary Care Physician Patient Instructions: Upper Arm Fracture Add. Discharge Instructions: Call Dr Marc's office tomorrow morning to arrange for follow up care Ice your shoulder frequently for 20 to 30 minutes, especially for the next week. Keep your sling on to keep your arm from moving around. All discharge instructions reviewed with patient and/or family. Voiced understanding. Scripts Hydrocodone/Acetaminophen (Hydrocodone-Acetamin 5-325 mg) 1 Each Tablet 1 EACH PO Q4H for Abdominal Pain, #20 TAB Prov: BRAYDEN DAVIDSON DO 10/21/20 BRAYDEN DAVIDSON DO Oct 21, 2020 23:16
== END 2020-10-21 23:18 | disposition home or self-care (01) ==
LOC: EDUNIT# 22:56 → ER FS 22:57
DX: S42.202A Unspecified fracture of upper end of left humerus, initial encounter for closed fracture (principal); E11.9 Type 2 diabetes mellitus without complications; I10 Essential (primary) hypertension; K21.9 Gastro-esophageal reflux disease without esophagitis; E03.9 Hypothyroidism, unspecified; Z88.5 Allergy status to narcotic agent; Z79.890 Hormone replacement therapy; Z79.01 Long term (current) use of anticoagulants; Z79.899 Other long term (current) drug therapy; X58.XXXA Exposure to other specified factors, initial encounter
CPT/HCPCS: 99281

== ENCOUNTER 2020-10-26 14:31 | Emergency (ER) | payer OTHER, MEDICARE ==
[2020-10-26 14:39] VITALS: BP 100/54
--- NOTE | 2020-10-26 14:47 | ED Upper Extremity ---
General Stated Complaint: LEFT ARM INJ History of Present Illness Date Seen by Provider: Oct 26, 2020 Time Seen by Provider: 14:42 Initial Comments 70-year-old male presents for more pain medication. Patient was seen on 10/21/2020 and diagnosed with a comminuted humerus fracture. Reports he saw George Asencio and was told he does not need to wear sling or anything else done. Patient presents today because he has 6 hydrocodone's left and wants to make sure he does not run out. Patient has no new injuries no other complaints Allergies and Home Medications Allergies Coded Allergies: codeine (Verified Adverse Reaction, Intermediate, 11/14/19) Patient states that he feels "out of his mind and terrible" when taking this medication Home Medications Acetaminophen 500 Mg Tablet, 1,000 MG PO Q8H PRN for PAIN-MILD (1-4), (Reported) Amlodipine Besylate 5 Mg Tablet, 5 MG PO DAILY, (Reported) Apixaban 2.5 Mg Tablet, 2.5 MG PO BID Prescribed by: LEXIE FOLEY on 11/16/19 111 Hydrochlorothiazide 25 Mg Tablet, 25 MG PO DAILY, (Reported) Hydrocodone/Acetaminophen 1 Each Tablet, 1 TAB PO Q4H PRN for PAIN-MODERATE (5- 7) Prescribed by: LEXIE FOLEY on 11/16/19 111 Hydrocodone/Acetaminophen 1 Each Tablet, 1 EACH PO Q4H Prescribed by: BRAYDEN DAVIDSON on 10/21/20 193 Hydrocodone/Acetaminophen 1 Each Tablet, 1 EACH PO Q4H Prescribed by: BRAYDEN DAVIDSON on 10/21/20 2315 Levofloxacin 750 Mg Tablet, 750 MG PO DAILY Prescribed by: LEXIE FOLEY on 11/16/19 1116 Levothyroxine Sodium 200 Mcg Tablet, 200 MCG PO DAILY, (Reported) Lisinopril 40 Mg Tablet, 40 MG PO DAILY, (Reported) Magnesium Oxide 400 Mg Tablet, 400 MG PO DAILY, (Reported) Multivitamin 1 Each Tablet, 1 EACH PO DAILY, (Reported) Nebivolol HCl 5 Mg Tablet, 5 MG PO DAILY, (Reported) Pantoprazole Sodium 40 Mg Tablet.dr, 40 MG PO DAILY, (Reported) Patient Home Medication List Home Medication List Reviewed: Yes Review of Systems Constitutional: No chills, No fever Respiratory: no symptoms reported Cardiovascular: no symptoms reported Gastrointestinal: no symptoms reported Musculoskeletal: see HPI Skin: no symptoms reported Psychiatric/Neurological: No Symptoms Reported Past Whyglmk-Tlducu-Mpagym Hx Past Med/Social Hx: Reviewed Nursing Past Med/Soc Hx Patient Social History Alcohol Beverage of Choice: Beer 2nd Hand Smoke Exposure: No Recent Hopitalizations: No Immunizations Up To Date Date of Pneumonia Vaccine: Feb 13, 2019 Seasonal Allergies Seasonal Allergies: Yes Past Medical History Surgeries: Yes (Hernia Repair) Appendectomy Respiratory: No Cardiac: Yes High Cholesterol, Hypertension Neurological: No Neuropathy Genitourinary: No Renal Failure Gastrointestinal: No Gastroesophageal Reflux Musculoskeletal: No Arthritis Endocrine: No Diabetes, Insulin dep, Hypothyroidsim HEENT: No Cancer: No Psychosocial: No Integumentary: No Blood Disorders: No Adverse Reaction/Blood Tranf: No Family Medical History Other Conditions/Hx Physical Exam Vital Signs Capillary Refill : Height, Weight, BMI Height: '" Weight: lbs. oz. kg; 29.00 BMI Method: General Appearance: no apparent distress Cardiovascular: normal peripheral pulses, regular rate, rhythm Respiratory: lungs clear, normal breath sounds Shoulder: bone tenderness (Left upper arm/), limited ROM Wrist: Yes normal inspection Hand: normal inspection Progress/Results/Core Measures Progress Progress Note : Progress Note Reviewed patient's x-ray with note below, discussed with patient that he currently has 6 Lortab 09/15/2024 left. That we do not manage his pain from the emergency room and he will need to follow-up tomorrow with his primary care provider for half-way pain management. He should take his medication as pr escribed. Patient stable and discharged Date of Exam:10/21/20 SHOULDER 3 VIEW LEFT EXAMINATION: Left shoulder 2 or more views. HISTORY: Fall COMPARISON: None available. FINDINGS: There is a comminuted proximal left humerus fracture. There is mild acromioclavicular osteoarthritis. Glenohumeral joint is normal. IMPRESSION: 1. Comminuted proximal left humeral fracture. Departure Impression Primary Impression: Proximal humerus fracture Qualified Codes: S42.202D - Unspecified fracture of upper end of left humerus, subsequent encounter for fracture with routine healing Disposition: HOME, SELF-CARE Condition: Stable Departure-Patient Inst. Referrals: [facility]/ (PCP) Primary Care Physician YULI NAGEL APRN (Family) Primary Care Physician Patient Instructions: Upper Arm Fracture Add. Discharge Instructions: Follow-up with your primary care provider and George Asencio for long-term management YOSELYN PRETTY DO Oct 26, 2020 14:46
== END 2020-10-26 14:56 | disposition home or self-care (01) ==
LOC: EDUNIT# 14:31 → ER FS 14:33
DX: S42.202A Unspecified fracture of upper end of left humerus, initial encounter for closed fracture (principal); I10 Essential (primary) hypertension; K21.9 Gastro-esophageal reflux disease without esophagitis; E03.9 Hypothyroidism, unspecified; E11.9 Type 2 diabetes mellitus without complications; Z88.5 Allergy status to narcotic agent; Z79.890 Hormone replacement therapy; Z79.01 Long term (current) use of anticoagulants; Z79.899 Other long term (current) drug therapy; X58.XXXA Exposure to other specified factors, initial encounter
CPT/HCPCS: 99281

== ENCOUNTER → 2020-11-04 | Outpatient (CLI) | payer MEDICARE, OTHER ==
--- NOTE | 2020-11-04 10:45 | Diagnostic Imaging Report ---
INDICATION: Follow-up fracture. COMPARISON: 10/21/2020 FINDINGS: 3 radiographic views of the left shoulder were obtained and again demonstrate fracture of the proximal left humerus. Fracture line primarily extends through the surgical neck. There is mild widening of the lateral fracture line resulting in mild angulation with the apex projecting laterally. This, however is stable. There is no appreciable bridging callus formation or other evidence of significant interval healing. No new acute fracture or dislocation left shoulder is seen. Joint spaces are maintained. No unexpected radiopaque foreign bodies are seen. Included portions of the left hemithorax are clear. IMPRESSION: 1. Redemonstration stable appearing nonacute fracture of the proximal left humerus. Dictated by: Dictated on workstation # [id number]
== END ==
LOC: RAD FS 09:37
PROVIDERS: ATTEND Nurse Practitioner
DX: S42.232D 3-part fracture of surgical neck of left humerus, subsequent encounter for fracture with routine healing (principal); X58.XXXD Exposure to other specified factors, subsequent encounter
CPT/HCPCS: 73030

== ENCOUNTER → 2020-11-25 | Outpatient (CLI) | payer MEDICARE, OTHER ==
--- NOTE | 2020-11-25 12:03 | Diagnostic Imaging Report ---
HISTORY: Follow-up fracture of the left shoulder. COMPARISON: 11/04/2020 TECHNIQUE: Three views of the left shoulder. FINDINGS: Redemonstrated is a mildly impacted comminuted fracture of the left humeral neck. There is minimal lateral displacement, but alignment appears stable since the prior exam. There is subtle periosteal reaction from healing changes. The glenohumeral alignment is stable. There are mild degenerative changes in the acromioclavicular joint. No new fractures are seen. IMPRESSION: 1. Healing, comminuted fracture of the proximal left humerus in unchanged alignment. Dictated by: Dictated on workstation # [id number]
== END ==
LOC: RAD FS 10:07
PROVIDERS: ATTEND Nurse Practitioner
DX: S42.232D 3-part fracture of surgical neck of left humerus, subsequent encounter for fracture with routine healing (principal); X58.XXXD Exposure to other specified factors, subsequent encounter
CPT/HCPCS: 73030

== ENCOUNTER → 2021-03-24 | Outpatient (CLI) | payer MEDICARE, OTHER ==
--- NOTE | 2021-03-24 11:00 | Diagnostic Imaging Report ---
EXAMINATION: Left shoulder at 10:30 a.m. INDICATION: Follow-up fracture. Three views were obtained. FINDINGS: The previous exam of 11/25/2020 noted a healing comminuted fracture of the proximal left humerus. In the interval since the prior study, further healing has occurred. The fracture line seen previously is no longer visible, and there is increased density about the fracture site consistent with callus formation. The main fracture fragments themselves are unchanged in alignment. There is no fracture or acute bony abnormality appreciated. The degenerative disease involving the glenohumeral and acromioclavicular joints noted previously has not progressed. The soft tissues are unremarkable. IMPRESSION: The fracture of the surgical neck of the humerus seen previously has healed. There is no acute bony abnormality appreciated. Dictated by: Dictated on workstation # [id number]
== END ==
LOC: RAD FS 10:06
PROVIDERS: ATTEND Nurse Practitioner
DX: S42.232D 3-part fracture of surgical neck of left humerus, subsequent encounter for fracture with routine healing (principal); X58.XXXD Exposure to other specified factors, subsequent encounter
CPT/HCPCS: 73030

== ENCOUNTER → 2021-06-15 | Outpatient (CLI) | payer MEDICARE, OTHER ==
--- NOTE | 2021-06-15 10:24 | Diagnostic Imaging Report ---
INDICATION: Left knee pain after injury. TECHNIQUE: AP, oblique, and lateral views of the left knee were obtained. FINDINGS: There is moderate diffuse joint space narrowing with marginal spurring. No acute fracture is identified. There is no evidence of lytic or sclerotic lesion. There does appear to be a mild to moderate amount of joint fluid. Mild atherosclerotic calcifications are also noted. IMPRESSION: Mild to moderate tricompartmental osteoarthritis with a mild to moderate amount of joint fluid present. Dictated by: Dictated on workstation # [id number]
== END ==
LOC: RAD FS 09:55
PROVIDERS: ATTEND Nurse Practitioner
DX: M17.12 Unilateral primary osteoarthritis, left knee (principal)
CPT/HCPCS: 73562

== ENCOUNTER 2022-02-07 17:46 | Emergency (ER) | payer MEDICARE, OTHER ==
[2022-02-07] MEDS ORDERED: inSUlin ASPART (NovoLOG) 1 UNIT/0.01 ML (CHARGE PER UNIT) SC STA (18:02)
[2022-02-07] MEDS ORDERED: INSU100V16 SQ (18:09)
--- NOTE | 2022-02-07 18:09 | ED General ---
General Chief Complaint: Glucose Problems Stated Complaint: ELEV GLUCOSE Source of Information: Patient History of Present Illness Date Seen by Provider: Feb 07, 2022 Time Seen by Provider: 17:49 Initial Comments 72-year-old male presenting with complaints of elevated blood sugar. He states that he had accidentally dropped his vial of NovoLog insulin yesterday and broke it. He had taken extra of his Levemir to try to help compensate. He uses a sliding scale of the NovoLog to help control his sugars. Since he did not have anything other than the Levemir to help with the sugars today he came to the emergency department. He states that he had left a message for Christy Marshall that she will not be in the office until tomorrow. He also usually fills his prescriptions through [facility] and the are not can to be open until tomorrow either. He states he gets muscle cramps with his elevated sugar. He was hoping to get at least a dose now to help with his sugar and then tried to manage until the morning when he can get a prescription from [facility] Timing/Duration: 1-2 Days Severity: Moderate Associated Systoms: No Chest Pain, No Cough, No Diaphoresis, No Fever/Chills, No Headaches, No Loss of Appetite, No Malaise, No Nausea/Vomiting, No Rash, No Seizure, No Shortness of Air, No Syncope, No Weakness Allergies and Home Medications Allergies Coded Allergies: codeine (Verified Adverse Reaction, Intermediate, 11/14/19) Patient states that he feels "out of his mind and terrible" when taking this medication Patient Home Medication List Home Medication List Reviewed: Yes Acetaminophen (Tylenol Extra Strength) 500 Mg Tablet, 1,000 MG PO Q8H PRN for PAIN-MILD (1-4), (Reported) Entered as Reported by: ART KNIGHT on 11/15/19 09 Amlodipine Besylate (Amlodipine Besylate) 5 Mg Tablet, 5 MG PO DAILY, (Reported) Entered as Reported by: LEXIE FOLEY on 11/14/192011 Apixaban (Eliquis) 2.5 Mg Tablet, 2.5 MG PO BID Prescribed by: LEXIE FOLEY on 11/16/19 111 Hydrochlorothiazide (Hydrochlorothiazide) 25 Mg Tablet, 25 MG PO DAILY, (Reported) Entered as Reported by: ART KNIGHT on 11/15/19922 Hydrocodone/Acetaminophen (Hydrocodone-Acetamin 5-325 mg) 1 Each Tablet, 1 TAB PO Q4H PRN for PAIN-MODERATE (5-7) Prescribed by: LEXIE FOLEY on 11/16/19 111 Hydrocodone/Acetaminophen (Hydrocodone-Acetamin 5-325 mg) 1 Each Tablet, 1 EACH PO Q4H Prescribed by: BRAYDEN MCLEODSTJOSE D on 10/21/20 1930 Hydrocodone/Acetaminophen (Hydrocodone-Acetamin 5-325 mg) 1 Each Tablet, 1 EACH PO Q4H Prescribed by: BRAYDEN MCLEODSTJOSE D on 10/21/20 2315 Insulin Aspart (Novolog) 100 Unit/Ml Susp, 5 UNIT SQ UD Prescribed by: PEEWEE VILLAVICENCIO on 02/07/22 180 Levofloxacin (Levaquin) 750 Mg Tablet, 750 MG PO DAILY Prescribed by: LEXIE FOLEY on 11/16/19 111 Levothyroxine Sodium (Levothyroxine Sodium) 200 Mcg Tablet, 200 MCG PO DAILY, (Reported) Entered as Reported by: LEXIE FOLEY on 11/14/192011 Lisinopril (Lisinopril) 40 Mg Tablet, 40 MG PO DAILY, (Reported) Entered as Reported by: ART KNIGHT on 11/15/19922 Magnesium Oxide (Magnesium) 400 Mg Tablet, 400 MG PO DAILY, (Reported) Entered as Reported by: ART KNIHGT on 11/15/19922 Multivitamin (Multivitamin) 1 Each Tablet, 1 EACH PO DAILY, (Reported) Entered as Reported by: ART KNIGHT on 11/15/19922 Nebivolol HCl (Bystolic) 5 Mg Tablet, 5 MG PO DAILY, (Reported) Entered as Reported by: ART KNIGHT on 11/15/19922 Pantoprazole Sodium (Pantoprazole Sodium) 40 Mg Tablet.dr, 40 MG PO DAILY, (Reported) Entered as Reported by: LEXIE FOLEY on 11/14/192011 Review of Systems Review of Systems Constitutional: No chills, No fever EENTM: no symptoms reported Respiratory: no symptoms reported Cardiovascular: no symptoms reported Gastrointestinal: no symptoms reported Genitourinary: no symptoms reported Musculoskeletal: see HPI Skin: no symptoms reported Psychiatric/Neurological: No Symptoms Reported Past Wwdhvph-Lhselv-Xwfkqy Hx Seasonal Allergies Seasonal Allergies: Yes Past Medical History Surgeries: Yes (Hernia Repair) Appendectomy Respiratory: No Cardiac: Yes High Cholesterol, Hypertension Neurological: No Neuropathy Genitourinary: No Renal Failure Gastrointestinal: No Gastroesophageal Reflux Musculoskeletal: No Arthritis Endocrine: No Diabetes, Insulin dep, Hypothyroidsim HEENT: No Cancer: No Psychosocial: No Integumentary: No Blood Disorders: No Adverse Reaction/Blood Tranf: No Family Medical History Other Conditions/Hx Physical Exam Vital Signs Vital Signs - First Documented 02/07/22 18:02 Temp 36.6 Pulse 70 Resp 16 B/P (MAP) 146/64 (91) Pulse Ox 99 O2 Delivery Room Air Capillary Refill : Height, Weight, BMI Height: '" Weight: lbs. oz. kg; 29.00 BMI Method: General Appearance: No Apparent Distress, WD/WN Cardiovascular: Regular Rate, Rhythm Neurologic/Psychiatric: Alert, Oriented x3, torch straightener and heater II-XII Norm as Tested Skin: Normal Color, Warm/Dry Progress/Results/Core Measures Suspected Sepsis SIRS Temperature: Pulse: Respiratory Rate: Blood Pressure / Mean: Results/Orders Lab Results Laboratory Tests Test 02/07/22 17:54 Range/Units Glucometer 387 H 70-110 MG/DL My Orders Orders - PEEWEE VILLAVICENCIO MD Insulin Aspart (Novolog) (Novolog (Charg (02/07/22 18:02) Vital Signs/I&O 02/07/22 18:02 Temp 36.6 Pulse 70 Resp 16 B/P (MAP) 146/64 (91) Pulse Ox 99 O2 Delivery Room Air Capillary Refill : Progress Note : Progress Note Accu-Chek was 387. Patient had no NovoLog at home so we will administer sliding scale dose for him here. He states that that level of his glucose he would take 15 units. Send a prescription to [facility] so that he can get that filled tomorrow when they open. In the meantime watch his diet and calorie intake as well as activity to help with the sugars. 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 Decision time for Depature: 18:04 Referrals: JUAN LUIS LUX MD (PCP) Primary Care Physician Patient Instructions: High Blood Sugar, Adult ED, How to Prevent High Blood Sugar Emergencies in Diabetes Add. Discharge Instructions: Get a refill of your Novolog insulin to continue taking with sliding scale at home along with your Levemir Follow up with clinic about your medicines All discharge instructions reviewed with patient and/or family. Voiced understanding. Scripts Insulin Aspart (Novolog) 100 Unit/Ml Susp 5 UNIT SQ UD for Diabetes for 30 Days, #10 ML 0 Refills Prov: PEEWEE VILLAVICENCIO MD 02/07/22 PEEWEE VILLAVICENCIO MD Feb 07, 2022 18:09
[2022-02-07 18:15] VITALS: BP 146/64
== END 2022-02-07 18:15 | disposition home or self-care (01) ==
LOC: EDUNIT# 17:46 → ER FS 17:47
DX: E11.65 Type 2 diabetes mellitus with hyperglycemia (principal); E11.40 Type 2 diabetes mellitus with diabetic neuropathy, unspecified; Z79.4 Long term (current) use of insulin
CPT/HCPCS: 82947

== ENCOUNTER 2022-11-11 05:39 | Emergency (ER) | payer MEDICARE, OTHER ==
[~2022-11-11] VITALS: Ht 177 cm; Wt 90.7 kg
[~2022-11-11 05:39] MED LIST changes: +INSU100V16 SQ
[2022-11-11] MEDS ORDERED: ONDANSETRON 4 MG/2 ML (SDV) Z0FRAN IVP STA (05:53)
[2022-11-11] MEDS ORDERED: NS IV 1000 ML 1,000 ML IV STA (05:53)
--- NOTE | 2022-11-11 06:02 | ED General ---
General Chief Complaint: Respiratory Problems Stated Complaint: SOB| SHAKING Source of Information: Patient (PEEWEE VILLAVICENCIO MD) History of Present Illness Date Seen by Provider: Nov 11, 2022 Time Seen by Provider: 05:42 Initial Comments 72-year-old male presenting by private vehicle to the emergency department. 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 When he came out of the freezer he felt like he would throw up. He started shaking and could not control that. He felt like he was very short of breath as well. He denies any actual chest pain, abdominal pain, headache, cough, diarrhea, constipation, pain with urination, sore throat. He reports that he is diabetic and has not eaten anything yet this morning. He was having dry heaves but did not actually bring anything up. He felt like he had fever and chills. A coworker was sick recently but he reports he has not been around her after she left work. He denies any other known ill contacts. His symptoms started 10 minutes prior to coming to the emergency department. Timing/Duration: Other (10 minutes) Severity: Moderate Associated Systoms: No Chest Pain, No Cough, No Diaphoresis; Fever/Chills (subjective); No Headaches, No Loss of Appetite, No Malaise; Nausea/Vomiting (dry heaves); No Rash, No Seizure; Shortness of Air; No Syncope, No Weakness (PEEWEE VILLAVICENCIO MD) Allergies and Home Medications Allergies Coded Allergies: codeine (Verified Adverse Reaction, Intermediate, 11/14/19) Patient states that he feels "out of his mind and terrible" when taking this medication Patient Home Medication List Home Medication List Reviewed: Yes (PEEWEE VILLAVICENCIO MD) Acetaminophen (Tylenol Extra Strength) 500 Mg Tablet, 1,000 MG PO Q8H PRN for PAIN-MILD (1-4), (Reported) Entered as Reported by: ART KNIGHT on 11/15/19922 Amlodipine Besylate (Amlodipine Besylate) 5 Mg Tablet, 5 MG PO DAILY, (Reported) Entered as Reported by: LEXIE FOLEY on 11/14/192011 Insulin Aspart (Novolog) 100 Unit/Ml Susp, 5 UNIT SQ UD Prescribed by: PEEWEE VILLAVICENCIO on 02/07/221808 Levothyroxine Sodium (Levothyroxine Sodium) 200 Mcg Tablet, 200 MCG PO DAILY, (Reported) Entered as Reported by: LEXIE FOLEY on 11/14/192011 Lisinopril (Lisinopril) 40 Mg Tablet, 40 MG PO DAILY, (Reported) Entered as Reported by: ART KNIGHT on 11/15/19922 Magnesium Oxide (Magnesium) 400 Mg Tablet, 400 MG PO DAILY, (Reported) Entered as Reported by: ART KNIGHT on 11/15/19922 Multivitamin (Multivitamin) 1 Each Tablet, 1 EACH PO DAILY, (Reported) Entered as Reported by: ART KNIGHT on 11/15/19922 Nebivolol HCl (Bystolic) 5 Mg Tablet, 5 MG PO DAILY, (Reported) Entered as Reported by: ART KNIGHT on 11/15/19922 Ondansetron (Ondansetron Odt) 8 Mg Tab.rapdis, 8 MG SL Q6H PRN for NAUSEA/VOMITING Prescribed by: OLIVIA FAITH MD on 11/11/22 07 Pantoprazole Sodium (Pantoprazole Sodium) 40 Mg Tablet.dr, 40 MG PO DAILY, (Reported) Entered as Reported by: LEXIE FOLEY on 11/14/192011 Discontinued Medications Apixaban (Eliquis) 2.5 Mg Tablet, 2.5 MG PO BID Prescribed by: LEXIE FOLEY on 11/16/191115 Last Action: Discontinued Hydrochlorothiazide (Hydrochlorothiazide) 25 Mg Tablet, 25 MG PO DAILY, (Reported) Entered as Reported by: ART KNIGHT on 11/15/19922 Last Action: Discontinued Hydrocodone/Acetaminophen (Hydrocodone-Acetamin 5-325 mg) 1 Each Tablet, 1 TAB PO Q4H PRN for PAIN-MODERATE (5-7) Prescribed by: LEXIE FOLEY on 11/16/191115 Last Action: Discontinued Hydrocodone/Acetaminophen (Hydrocodone-Acetamin 5-325 mg) 1 Each Tablet, 1 EACH PO Q4H Prescribed by: BRAYDEN DAVIDSON on 10/21/20 193 Last Action: Discontinued Hydrocodone/Acetaminophen (Hydrocodone-Acetamin 5-325 mg) 1 Each Tablet, 1 EACH PO Q4H Prescribed by: BRAYDEN BARKERJOSE D on 10/21/20 2315 Last Action: Discontinued Levofloxacin (Levaquin) 750 Mg Tablet, 750 MG PO DAILY Prescribed by: LEXIE FOLEY on 11/16/19 1116 Last Action: Discontinued Review of Systems Review of Systems Constitutional: chills, fever (subjective) EENTM: No nose congestion, No throat pain Respiratory: No cough; short of breath; No stridor, No wheezing Cardiovascular: No chest pain, No palpitations Gastrointestinal: No abdominal pain, No constipation, No diarrhea; nausea, vomiting (dry heaves) Genitourinary: No dysuria Musculoskeletal: no symptoms reported Skin: No rash Psychiatric/Neurological: Denies Headache (PEEWEE VILLAVICENCIO MD) Past Eheahop-Cdpcfh-Ihkdvh Hx Patient Social History Tobacco Use?: Yes (PEEWEE VILLAVICENCIO MD) Seasonal Allergies Seasonal Allergies: Yes (PEEWEE VILLAVICENCIO MD) Past Medical History Surgery/Hospitalization HX: Diabetes Insulin Dependent, Hypertension Surgeries: Yes (Hernia Repair) Appendectomy Respiratory: No Cardiac: Yes High Cholesterol, Hypertension Neurological: No Neuropathy Genitourinary: No Renal Failure Gastrointestinal: No Gastroesophageal Reflux Musculoskeletal: No Arthritis Endocrine: No Diabetes, Insulin dep, Hypothyroidsim HEENT: No Cancer: No Psychosocial: No Integumentary: No Blood Disorders: No Adverse Reaction/Blood Tranf: No (PEEWEE VILLAVICENCOI MD) Family Medical History Other Conditions/Hx (PEEWEE VILLAVICENCIO MD) Physical Exam Vital Signs Vital Signs - First Documented 11/11/22 05:40 Temp 37.2 Pulse 77 Resp 24 B/P (MAP) 153/80 (104) Pulse Ox 93 O2 Delivery Room Air ([facility]) Vital Signs Capillary Refill : (PEEWEE VILLAVICENCIO MD) Height, Weight, BMI Height: '" Weight: lbs. oz. kg; 29.00 BMI Method: General Appearance: Anxious, Other (shaking and complaint of chills and feeling like he is going to vomit) HEENT: PERRL/EOMI, Pharynx Normal, Moist Mucous Membranes Neck: Full Range of Motion, Normal Inspection, Non Tender, Supple Respiratory: Chest Non Tender, Lungs Clear, Normal Breath Sounds, No Accessory Muscle Use, No Respiratory Distress Cardiovascular: Regular Rate, Rhythm, No Murmur, Normal Peripheral Pulses Gastrointestinal: Normal Bowel Sounds, No Pulsatile Mass, Non Tender, Soft Rectal: Deferred Extremity: Normal Capillary Refill, Normal Inspection, No Pedal Edema Neurologic/Psychiatric: Alert, Oriented x3, business 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 consultant II-XII Norm as Tested Skin: Normal Color, Warm/Dry (PEEWEE VILLAVICENCIO MD) Focused Exam Lactate Level 11/11/22 06:53: (OLIVIA FAITH DO) Lactic Acid Level Laboratory Tests Test 11/11/22 06:53 (OLIVIA FAITH DO) Progress/Results/Core Measures Suspected Sepsis SIRS Temperature: Pulse: Respiratory Rate: Laboratory Tests 11/11/22 05:55: White Blood Count 13.9H Blood Pressure / Mean: 11/11/22 06:53: Lactic Acid Level 1.43 Laboratory Tests 11/11/22 05:55: Creatinine 1.12, INR Comment 0.9, Platelet Count 256, Total Bilirubin 0.5 (PEEWEE VILLAVICENCIO MD) Results/Orders Lab Results Laboratory Tests Test 11/11/22 05:49 11/11/22 05:55 11/11/22 05:59 11/11/22 06:53 Range/Units Glucometer 140 H 70-110 MG/DL White Blood Count 13.9 H 4.3-11.0 10^3/uL Red Blood Count 4.77 4.30-5.52 10^6/uL Hemoglobin 13.6 13.3-17.7 g/dL Hematocrit 42 40-54 % Mean Corpuscular Volume 87 80-99 fL Mean Corpuscular Hemoglobin 29 25-34 pg Mean Corpuscular Hemoglobin Concent 33 32-36 g/dL Red Cell Distribution Width 13.5 10.0-14.5 % Platelet Count 256 130-400 10^3/uL Mean Platelet Volume 10.4 9.0-12.2 fL Immature Granulocyte % (Auto) 0 % Neutrophils (%) (Auto) 79 H 42-75 % Lymphocytes (%) (Auto) 12 12-44 % Monocytes (%) (Auto) 1 0-12 % Eosinophils (%) (Auto) 8 0-10 % Basophils (%) (Auto) 1 0-10 % Neutrophils # (Auto) 11.0 H 1.8-7.8 10^3/uL Lymphocytes # (Auto) 1.6 1.0-4.0 10^3/uL Monocytes # (Auto) 0.1 0.0-1.0 10^3/uL Eosinophils # (Auto) 1.1 H 0.0-0.3 10^3/uL Basophils # (Auto) 0.1 0.0-0.1 10^3/uL Immature Granulocyte # (Auto) 0.1 0.0-0.1 10^3/uL Prothrombin Time 12.6 12.2-14.7 SEC INR Comment 0.9 0.8-1.4 Activated Partial Thromboplast Time 28 24-35 SEC Sodium Level 139 135-145 MMOL/L Potassium Level 4.5 3.6-5.0 MMOL/L Chloride Level 104 98-107 MMOL/L Carbon Dioxide Level 25 21-32 MMOL/L Anion Gap 10 5-14 MMOL/L Blood Urea Nitrogen 24 H 7-18 MG/DL Creatinine 1.12 0.60-1.30 MG/DL Estimat Glomerular Filtration Rate 70 BUN/Creatinine Ratio 21 Glucose Level 158 H 70-105 MG/DL Calcium Level 9.5 8.5-10.1 MG/DL Corrected Calcium 9.2 8.5-10.1 MG/DL Magnesium Level 1.7 1.6-2.4 MG/DL Total Bilirubin 0.5 0.1-1.0 MG/DL Aspartate Amino Transf (AST/SGOT) 45 H 5-34 U/L Alanine Aminotransferase (ALT/SGPT) 48 0-55 U/L Alkaline Phosphatase 120 40-136 U/L Troponin I < 0.30 <0.30 NG/ML Pro-B-Type Natriuretic Peptide 232.5 H <125.0 PG/ML Total Protein 7.4 6.4-8.2 GM/DL Albumin 4.4 3.2-4.5 GM/DL Lipase 21 8-78 U/L Influenza Type A (RT-PCR) Not Detected Not Detecte Influenza Type B (RT-PCR) Not Detected Not Detecte SARS-CoV-2 RNA (RT-PCR) Not Detected Not Detecte (OLIVIA FAITH DO) My Orders Orders - OLIVIA FAITH DO Ondansetron Injection (Zofran Injectio (11/11/22 07:15) (OLIVIA FAITH DO) Vital Signs/I&O 11/11/22 11/11/22 11/11/22 05:40 05:40 06:22 Temp 37.2 37.7 Pulse 77 Resp 24 B/P (MAP) 153/80 (104) Pulse Ox 93 O2 Delivery Room Air Room Air (OLIVIA FAITH ) Vital Signs/I&O Capillary Refill : (PEEWEE VILLAVICENCIO MD) Progress Note #1: Progress Note Potential diagnosis of Hyperglycemia, Hypoglycemia, Covid, Influenza, Pneumonia, Myocardial Infarction, Electrolyte imbalance, Viral Illness, Gastroenteritis. Obtain peripheral IV access and send labs for complete blood count, comprehen sive metabolic profile, magnesium, lipase, troponin, proBNP, coagulation factors. Obtain electrocardiogram to look at his heart rate and rhythm and look for signs of ischemia. Order 1 view chest x-ray since he was complaining of shortness of breath. His temperature was 99 on arrival to the ED. Obtain Accu- Chek to ensure that he is not hypoglycemic or hyperglycemic. Nasal swab to check for COVID and influenza. Administer normal saline 1 L IV fluid bolus for hydration, Zofran 4 mg IV for nausea and dry heaves. Since he was having chills and his temperature was 99 will order dose of acetaminophen after he has been given the Zofran. His electrocardiogram by personal interpretation and review it shows a sinus rhythm and no acute ischemic changes. Although he complains of being short of breath his oxygen saturation was 97 to 100% on room air. His initial heart rate was in the 70s and regular. Progress Note #2: Time: 06:28 Progress Note Patient felt like he was chilling more and requested a warm blanket. On recheck of his temperature it had gone from 99 up to 99.8 Fahrenheit. Administer acetaminophen 650 mg p.o. x1. Add on blood cultures with a lactic acid. On my personal interpretation and review of his 1 view chest x-ray I did not appreciate any acute infiltrate. His complete blood count showed a white blood cell count slightly elevated to 13.9. Hemoglobin was low normal at 13.6. Awaiting the rest of his comprehensive metabolic panel as well as coagulation factors and cardiac enzymes. Progress Note #3: Time: 06:49 Progress Note Coagulation factors came back and were normal. He did not show elevated or prolonged coagulation factors to indicate a coagulopathy. Blood pressure is 166/51. Comprehensive metabolic profile, lactic acid, cardiac enzymes, COVID and influenza are all pending. We will pass care to dayshift provider, Dr. Faith at shift change pending results and determine his disposition. (PEEWEE VILLAVICENCIO MD) ECG Initial ECG Impression Date: Nov 11, 2022 Initial ECG Impression Time: 06:00 Initial ECG Rate: 81 Initial ECG Rhythm: Normal Sinus Initial ECG Comparisson: No Previous ECG Available Comment On my personal interpretation and review his electrocardiogram shows a normal sinus rhythm with a heart rate of 81 bpm. MN interval 159 ms. He has no acute ST elevation. There is some artifact due to his shaking. His QT interval is 334 ms with a QTc interval 372 ms. He has no prior tracing available for comparison. (PEEWEE VILLAVICENCIO MD) Diagnostic Imaging Diagonstic Imaging: Xray Plain Films/CT/US/NM/MRI: chest Reviewed: Reviewed by Me (PEEWEE VILLAVICENCIO MD) Departure Impression Primary Impression: Shortness of breath Additional Impressions: Vomiting Qualified Codes: R11.2 - Nausea with vomiting, unspecified Chills Disposition: HOME, SELF-CARE Condition: Stable Departure-Patient Inst. Referrals: SELFJUAN LUIS MD (PCP) Primary Care Physician Patient Instructions: Nausea and Vomiting, Adult ED Add. Discharge Instructions: You were seen in the emergency department for chills vomiting and shaking. No emergent medical conditions are identified. Your labs are unremarkable outside of a mild elevation in your white blood cell count. Use the nausea medicine as prescribed as needed. Increase your fluids at home by taking small sips of fluids every 15 minutes. Return to the emergency department for any severe concerns. All discharge instructions reviewed with patient and/or family. Voiced understanding. Scripts Ondansetron (Ondansetron Odt) 8 Mg Tab.rapdis 8 MG SL Q6H PRN for NAUSEA/VOMITING for 3 Days, #12 TAB Prov: OLIVIA AFITH DO 11/11/22 PEEWEE VILLAVICENCIO MD Nov 11, 2022 06:02 OLIVIA FAITH DO Nov 11, 2022 07:20
[2022-11-11] MEDS ORDERED: ACETAMINOPHEN 325 MG TABLET PO STA (06:14)
[2022-11-11 06:19] LABS: BASOPHILS # (AUTO) 0.1 10^3/uL (0.0-0.1); BASOPHILS % (AUTO) 1 % (0-10); EOSINOPHILS # (AUTO) 1.1 10^3/uL (0.0-0.3); EOSINOPHILS % (AUTO) 8 % (0-10); HEMATOCRIT 42 % (40-54); HEMOGLOBIN 13.6 g/dL (13.3-17.7); LYMPHOCYTES # (AUTO) 1.6 10^3/uL (1.0-4.0); LYMPHOCYTES % (AUTO) 12 % (12-44); MEAN CORPUSCULAR HEMOGLOBIN 29 pg (25-34); MEAN CORPUSCULAR HGB CONC 33 g/dL (32-36); MEAN CORPUSCULAR VOLUME 87 fL (80-99); MEAN PLATELET VOLUME 10.4 fL (9.0-12.2); MONOCYTES # (AUTO) 0.1 10^3/uL (0.0-1.0); MONOCYTES % (AUTO) 1 % (0-12); NEUTROPHILS % (AUTO) 79 % (42-75); PLATELET COUNT 256 10^3/uL (130-400); WHITE BLOOD COUNT 13.9 10^3/uL (4.3-11.0)
[2022-11-11 06:43] LABS: INR 0.9 (0.8-1.4); PROTHROMBIN TIME PATIENT 12.6 SEC (12.2-14.7)
[2022-11-11 06:52] LABS: ALANINE AMINOTRANSFERASE 48 U/L (0-55); ALKALINE PHOSPHATASE 120 U/L (40-136); BILIRUBIN,TOTAL 0.5 MG/DL (0.1-1.0); BUN/CREATININE RATIO 21; CALCIUM 9.5 MG/DL (8.5-10.1); CARBON DIOXIDE 25 MMOL/L (21-32); CHLORIDE 104 MMOL/L (98-107); CREATININE SERUM 1.12 MG/DL (0.60-1.30); GFR ESTIMATED 70; GLUCOSE 158 MG/DL (70-105); MAGNESIUM 1.7 MG/DL (1.6-2.4); POTASSIUM 4.5 MMOL/L (3.6-5.0); SODIUM 139 MMOL/L (135-145)
[2022-11-11 06:53] LABS: ALBUMIN 4.4 GM/DL (3.2-4.5); LIPASE 21 U/L (8-78); TOTAL PROTEIN 7.4 GM/DL (6.4-8.2)
[2022-11-11] MEDS ORDERED: ONDANSETRON 4 MG/2 ML (SDV) Z0FRAN IVP ONE (07:15)
[2022-11-11] MEDS ORDERED: ONDA8TAB13 SL (07:19)
[2022-11-11 07:25] VITALS: BP 132/78
--- NOTE | 2022-11-11 08:08 | Diagnostic Imaging Report ---
INDICATION: Shortness of breath Frontal chest obtained at 0606 a.m. There is no prior study for comparison. Heart is mildly enlarged. There is mild central vascular prominence without focal infiltrate or pneumothorax or pleural fluid. IMPRESSION: Borderline heart size with mild central vascular prominence. No focal consolidation or pneumothorax or pleural fluid. Dictated by: Dictated on workstation # [id number]
== END 2022-11-11 07:25 | disposition home or self-care (01) ==
LOC: EDUNIT# 05:39 → ER FS 05:44
DX: R06.02 Shortness of breath (principal); R50.9 Fever, unspecified; R11.2 Nausea with vomiting, unspecified; E11.40 Type 2 diabetes mellitus with diabetic neuropathy, unspecified; D72.829 Elevated white blood cell count, unspecified; Z79.4 Long term (current) use of insulin; Z20.822 Contact with and (suspected) exposure to COVID-19
CPT/HCPCS: 36415; 71045; 80053; 82947; 83605; 83690; 83735; 83880; 84484; 85025; 85610; 85730; 87040; 87636; 93005; 93041